=== PATIENT | female | born 1970 | race Caucasian/White ===

== ENCOUNTER 2020-02-27 20:00 | Emergency (ER) | payer OTHER ==
--- OUTSIDE RECORDS SUMMARY | 2020-02-27 20:02 | XMS REPORT ---
:1970 Author Organization eClinicalWorks Care Team Providers Name Role Phone Nereida España Provider Role Unavailable Allergies No Known Allergies Problems Problem Type Condition Code Onset Dates Condition Statu s Problem Gallstones K80.20 Active Problem Hepatitis K75.9 Active Problem Encounter for tobacco use cessation Z71.6 Active counseling Problem Tobacco use Z72.0 Active Problem Reflux K21.9 Active Problem Leukocytosis, unspecified type D72.829 Active Problem Hypercalcemia E83.52 Active Problem Onychomycosis B35.1 Active Problem Pain in right leg M79.604 Active Problem Pain in left leg M79.605 Active Problem Anxiety F41.9 Active Problem Morbid obesity E66.01 Active Problem Paresthesias R20.2 Active Problem Seasonal allergies J30.2 Active Problem Mixed hyperlipidemia E78.2 Active Problem Paresthesia of foot, bilateral R20.2 Active Problem Status post fall Z91.81 Active Problem Acute lower urinary tract infection N39.0 Active Problem Body mass index (BMI) of 40.0-44.9 Z68.41 Active in adult Problem Hyperlipidemia, unspecified E78.5 Active hyperlipidemia type Problem Diabetes E11.9 Active Problem Sinus problem J34.9 Active Problem History of hepatitis B virus Z86.19 Active infection Problem Depression screening Z13.31 Active Problem Gastroesophageal reflux disease K21.9 Active without esophagitis Problem Uncontrolled type 2 diabetes E11.65 Active mellitus with hyperglycemia Medications No Known Medications Results No Known Results Summary Purpose eClinicalWorks Submission
--- OUTSIDE RECORDS SUMMARY | 2020-02-27 20:02 | XMS REPORT ---
:1970 Author Organization eClinicalWorks Care Team Providers Name Role Phone Nereida España Provider Role Unavailable Allergies, Adverse Reactions, Alerts Substance Reaction Event Type tetracycline nausea and vomiting Drug Allergy Nicotine rash Drug Allergy Indocin nausea and vomiting Drug Allergy Problems Problem Type Condition Code Onset Dates Condition Statu s Assessment Status post fall Z91.81 Active Assessment Mixed hyperlipidemia E78.2 Active Assessment Pain in left leg M79.605 Active Assessment Pain in right leg M79.604 Active Assessment Paresthesias R20.2 Active Assessment Acute lower urinary tract infection N39.0 Active Assessment Uncontrolled type 2 diabetes E11.65 Active mellitus with hyperglycemia Problem Gallstones K80.20 Active Problem Hepatitis K75.9 [...] Acute lower urinary tract infection N39.0 Active Assessment Leukocytosis, unspecified type D72.829 Active Problem Body mass index (BMI) of 40.0-44.9 Z68.41 Active in adult Assessment Hypercalcemia E83.52 Active Problem Hyperlipidemia, unspecified E78.5 Active hyperlipidemia type Assessment Body mass index (BMI) of 40.0-44.9 Z68.41 Active in adult Problem Diabetes E11.9 Active Assessment Morbid obesity E66.01 Active Problem Sinus problem J34.9 Active Assessment Anxiety F41.9 Active Problem History of hepatitis B virus Z86.19 Active infection Assessment Onychomycosis B35.1 Active Problem Depression screening Z13.31 Active Problem Gastroesophageal reflux disease K21.9 Active without esophagitis Problem Uncontrolled type 2 diabetes E11.65 Active mellitus with hyperglycemia Medications Medication Code Code Instructions Start End Status Dosage System Date Date Cipro [facility] 05212558927 500 MG Orally December Active 1 tabl et every 12 hrs , 2019 Pen Hoosick [facility] 21674872556 32G X 6 MM Active as subcutaneous as directed directed for use with Victoza Pen Lamisil [facility] 77936122172 250 MG Orally Mar 16, Active 1 tabl et Once a day 2019 Fluoxetine HCl ND 10578149383 10 MG Orally Active 1 capsule Once a day Janumet XR [facility] 27568467219 50mg/1,000mg December Inactive 1 t ablet Orally Twice a 2019 Victoza [facility] 46768465739 18 MG/3ML September Active as Subcutaneous 1.8 15, directe d mg once daily 2020 Janumet XR [facility] 87410580171 100-1000 MG Active take 1 Orally twice a tablet by day mouth twice daily with meals for 90 days Fluoxetine NDC 0 10 MG Orally Active 1 capsul e Once a day Gabapentin ND 41821286109 100 MG Orally Jul 05, Active 1-3 Twice daily 2019 capsules as needed for pain FreeStyle Noah [facility] 57506156199 - subcutaneous Activ e as 14 Day Shade Test BS once direc nichelle daily and prn FreeStyle Noah NDC 0 - subcutaneous August Active a s Shade Test BS once 19, directed daily and prn 2019 FreeStyle Noah [facility] 66543450764 - May 27, Active USE 14 Day Sensor 2019 DIRECTED ONCE DAILY AND NEEDED 84 DAYS Lisinopril [facility] 23624476343 5 MG Orally Once Active 1 tablet a day Jardiance ND 82660320861 10 MG Orally DecemberApr 15, Active 1 tab let Once a day for 2019 diabetes 2019 atorvastatin ND 96634928493 20mg Orally Once September Active 1 tablet daily 15, by mouth 2020 at bedtime Gemfibrozil ND 84774537975 600 MG Orally Active 1 tablet Twice a day for 30 minut es high before triglycerides morning and evening meals Results Name Result Date Reference Range Unit Abnormali ty Flag URINALYSIS AUTO W/O SCOPE ----Bilirubin negative 20191217 ----Urobilinogen (mg/dL) 0.2 20191217 ----Ketones negative 20191217 ----Glucose (mg/dL) 3+ 20191217 ----Protein (mg/dL) 1+ 20191217 ----Specific [place] 1.010 20191217 ----Blood (Non-Hemolyzed) 1+ 20191217 ----pH 6.0 20191217 ----Leukocytes negative 20191217 ----Nitrite negative 20191217 HEMOGLOBIN A1C ----A1C 8.5% 20191217 Summary Purpose eClinicalWorks Submission
--- OUTSIDE RECORDS SUMMARY | 2020-02-27 20:03 | XMS REPORT ---
[...] Medications Medication Code Code Instructions Start End Date Status Dosage System Date Ckuvia ND 10846412546 100 MG Orally December 23, Active 1 tab let once a day 2019 Metformin HCl NDC 47349539663 1000 MG Orally December 23, Active 1 tablet twice a day 2019 with a meal Results No Known Results Summary Purpose eClinicalWorks Submission
--- OUTSIDE RECORDS SUMMARY | 2020-02-27 20:03 | XMS REPORT | Continuity of Care Document ---
:1970 Author Organization [facility] t Address [address] [place] [address] Care Team Providers Name Role Phone Unavailable Unavailable Unavailable Problems Condition Condition Condition Status Onset Resolution Last Treating Co mments Source Name Details Category Date Date Treatment Clinician Date Gastroesop Gastroesop Problem Active [facility]age[facility]al [facility] reflux reflux [facility] disease disease l without without Outpati esophagiti esophagiti en t s s Clinics Sinus Sinus Problem Active [facility] problem problem [facility] Morbid Morbid Problem Active [facility] obesity obesity [facility] Uncontroll Uncontroll Problem Active [facility] ed type 2 ed type 2 [facility] - diabetes diabetes [facility] a mellitus mellitus l with with Outpati hyperglyce hyperglyce en t sunday sunday Clinics History of History of Problem Active [facility] hepatitis hepatitis [facility] - B virus B virus [facility] infection infection l Outpati ent Clinics Body mass Body mass Problem Active [facility] index index [facility] - (BMI) of (BMI) of Memori a 40.0-44.9 40.0-44.9 l in adult in adult Outpat i ent Clinics Hyperlipid Hyperlipid Problem Active [facility] emia, emia, [facility] - unspecifie unspecifie Me moria d d l hyperlipid hyperlipid Ou tpati emia type emia type ent Clinics Anxiety Anxiety Problem Active [facility] Diabetes Diabetes Problem [facility] Hepatitis Hepatitis Problem Active [facility] Gallstones Gallstones Problem Active [facility] Seasonal Seasonal Problem Active [facility] allergies allergies [facility] Leukocytos Leukocytos Problem Active [facility] is, is, [facility] - unspecifie unspecifie Me moria d type d type l [facility] Onychomyco Onychomyco Problem Active [facility] sis sis [facility] Tobacco Tobacco Problem Active [facility] use use [facility] Depression Depression Problem Active [facility] screening screening [facility] - [facility] Encounter Encounter Problem Active [facility] for for [facility] - tobacco tobacco [facility] use use l cessation cessation Outp ati counseling counseling en t Clinics Hypercalce Hypercalce Problem Active [facility] sunday sunday [facility] Paresthesi Paresthesi Problem Active [facility] a of foot, a of foot, [place] - bilateral bilateral [place] christal l [facility] Mixed Mixed Problem Active [facility] hyperlipid hyperlipid [facility] - emia emia [facility] Status Status Problem Active [facility] post fall post fall [facility] Pain in Pain in Problem Active [facility] left leg left leg [facility] Pain in Pain in Problem Active [facility] right leg right leg [facility] Acute Acute Problem Active [facility] lower lower [facility] - urinary urinary Memoria tract tract l infection infection Outp at ent Clinics Allergies, Adverse Reactions, Alerts Allergy Allergy Status Severity Reaction(s) Onset Inactive Treating Comm ents Source Name Type Date Date Clinician tetracyc Adverse Active nausea and [facility] line Reaction vomiting [facility] Nicotine Adverse Active rash [facility] Reaction [facility] Indocin Adverse Active nausea and [facility] Reaction vomiting [facility] Medications Ordered Filled Start Stop Current Ordering Indication Dosage Frequency Signature Comments Components Source Medication Medication Date Date Medication? Clinician (SIG) Name Name Cecy Stoverkimmyia Yes Nereida [address] 7-21 Millender [facility] - 00:[facility]: [facility] Metformin Metformin Yes Nereida [address] [facility] HCl HCl 7-21 Millender with a [facility] - 00:00: meal [facility] Procedures This patient has no known procedures. Encounters Start End Encounter Admission Attending Care Care Encounter Source Date/Time Date/Time Type Type Clinicians Facility Department ID 2019-12-24 2019-12-24 [facility] [id number] [facility] 14:38:00 14:38:00 [facility] Medicine Outpati ent Clinics 2019-12-22 2019-12-22 [facility] [id number] [address] 17:05:00 17:05:00 [facility] Medicine Outpati ent Clinics 2019-12-17 2019-12-17 [facility] [id number] [address] 09:00:00 09:00:[address] [facility] Medicine l Medicine Outpati ent Clinics 2019-11-19 2019-11-19 [facility] [id number] [facility] 16:00:00 16:00:00 [facility] Medicine Outpati ent Clinics 2019-10-04 2019-10-04 [facility] [id number] [facility] 16[facility]08:00 16:08:[address] [facility] Medicine Medicine Outpati ent Clinics 2019-09-30 2019-09-30 [facility] [id number] [facility] 14:31:00 14:31:00 [facility] Medicine Outpati ent Clinics 2019-08-13 2019-08-13 [facility] [id number] [facility] 14:30:00 14:30:[address] [facility] Medicine Medicine Outpati ent Clinics 2019-07-08 2019-07-08 [facility] [id number] 22:06:00 22:06:00 [facility] Medicine Outpati ent Clinics 2019-07-05 2019-07-05 [facility] [id number] [facility] 10:24:00 10:24:00 [facility] Medicine Outpati ent Clinics 2019-07-03 2019-07-03 [facility] [id number] 11:45:00 11:45:00 t [facility] Medicine Outpati ent Clinics 2019-03-19 2019-03-19 [facility] [id number] [address] 13:20:00 13:20:00 [facility] Medicine Outpati ent Clinics 2019-03-18 2019-03-18 [facility] [id number] [address] 10:35:00 10:35:00 [facility] Medicine Outpati ent Clinics 2019-02-14 2019-02-14 [facility] [id number] 16:39:00 16:39:00 t [facility] Medicine Outpati ent Clinics 2018-12-13 2018-12-13 [facility] [id number] 16:15:00 16:15:00 [facility] Medicine Outpati ent Clinics 2018-11-20 2018-11-20 [facility] [id number] [address] 14:20:00 14:20:00 t [facility] Medicine Outpati ent Clinics 2018-10-05 2018-10-05 [facility] [id number] [address] 15:44:00 15:44:00 t [facility] Medicine Outpati ent Clinics 2018-08-22 2018-08-22 [facility] [id number] [address] 15:39:00 15:39:00 t [facility] Medicine Outpati ent Clinics 2018-08-22 2018-08-22 [facility] [id number] 15:12:00 15:12:00 [facility] Medicine Outpati ent Clinics 2018-08-21 2018-08-21 [facility] [id number] 09:15:00 09:15:00 [facility] Medicine Outpati ent Clinics Results This patient has no known results.
[2020-02-27] MEDS ORDERED: HYDROCODONE/APAP 10/325 TAB ONE (22:06)
--- NOTE | 2020-02-27 23:15 | ER ---
Nurse's Notes [facility] Name: Francia Smith Age: 50 yrs Sex: Female : 1970 Arrival Date: 02/27/2020 Time: 20:07 Bed 15 Private MD: Diagnosis: Fall on same level from slipping, tripping and stumbling;Pain in right leg;Mid back pain Presentation: 02/26 20:07 Chief complaint: EMS states: "the pt is reporting a fall today and hurting her legs. jd3 she reported she was on the ground for about 30 min prior to our arrival. she is reporting that she has had FRED leg issues for about 2 months now. she had an appointment today in [place] for an ultrasound to rule out a DVT, but she does not have a result yet. her right leg from her hip down to her foot hurts and her left leg hurts from her knee down through her foot.". Coronavirus screen: At this time, the client does not indicate any symptoms associated with coronavirus-19. Ebola Screen: Patient negative for fever greater than or equal to 101.5 degrees Fahrenheit, and additional compatible Ebola Virus Disease symptoms. Initial Sepsis Screen: Does the patient meet any 2 criteria? No. Patient's initial sepsis screen is negative. Does the patient have a suspected source of infection? No. Patient's initial sepsis screen is negative. Risk Assessment: Do you want to hurt yourself or someone else? Patient reports no desire to harm self or others. Onset of symptoms was February 27, 2020. 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 - Social history:: Smoking status: Patient reports the use of cigarette tobacco products, smokes one-half pack cigarettes per day. Screenin:15 Abuse screen: Denies threats or abuse. Denies injuries from another. Nutritional ca1 screening: No deficits noted. Tuberculosis screening: No symptoms or risk factors identified. Fall Risk Fall in past 12 months (25 points). Assessment: 20:15 General: Appears in no apparent distress. comfortable, Behavior is calm, cooperative, ca1 appropriate for age. Pain: Complains of pain in right leg Pain currently is 8 out of 10 on a pain scale. Neuro: Level of Consciousness is awake, alert, obeys commands, Oriented to person, place, time, situation, Appropriate for age. Derm: Skin is intact, is healthy with good turgor, Skin is pink, warm \\T\\ dry. Musculoskeletal: Circulation, motion, and sensation intact. Capillary refill < 3 seconds, Range of motion: intact in all extremities. 21:20 Reassessment: Patient appears in no apparent distress at this time. Patient and/or ca1 family updated on plan of care and expected duration. Pain level reassessed. Patient is alert, oriented x 3, equal unlabored respirations, skin warm/dry/pink. Vital Signs: 20:13 BP 120 / 61; Pulse 76; Resp 17 S; Temp 98.1(O); Pulse Ox 97% on R/A; Weight 109.77 kg jd3 (R); Height 5 ft. 6 in. (167.64 cm) (R); Pain 8/10; 21:20 BP 121 / 71; Pulse 78; Resp 16 S; Pulse Ox 97% on R/A; ca1 20:13 Body Mass Index 39.06 (109.77 kg, 167.64 cm) jd3 ED Course: 20:07 Patient arrived in ED. jd3 20:12 Triage completed. jd3 20:14 Arm band placed on. jd3 20:15 Patient has correct armband on for positive identification. Bed in low position. Call ca1 light in reach. Side rails up X2. Pulse ox on. NIBP on. Warm blanket given. Pillow given. 20:20 Pam Finley RN is Primary Nurse. ca1 20:32 Patience Masters FNP-C is PHCP. kb 20:32 José Driver MD is Attending Physician. kb 22:21 Report given to MARIBELL Flanagan. ca1 22:35 Hip Right 2 View XRAY In Process Unspecified. EDMS 22:35 Femur Right XRAY In Process Unspecified. EDMS 22:35 Tib Fib Right XRAY In Process Unspecified. EDMS 22:37 CT Thoracic Spine Wo Cont In Process Unspecified. EDMS 23:28 No provider procedures requiring assistance completed. Patient did not have IV access mg2 during this emergency room visit. 02/27 07:08 US Extremity Venous Unilateral Ltd In Process Unspecified. EDMS Administered Medications: 02/26 21:57 Drug: [place] 10 mg-325 mg 1 tabs {Note: rass 0.} Route: PO; ca1 23:04 Follow up: Response: No adverse reaction mg2 Outcome: 23:14 Discharge ordered by . kb 23:29 Discharged to home via wheelchair. mg2 23:29 Condition: stable 23:29 Discharge instructions given to patient, Instructed on discharge instructions, follow up and referral plans. medication usage, Demonstrated understanding of instructions, follow-up care, medications, Prescriptions given X 1. 23:36 Patient left the ED. mg2 Signatures: Dispatcher [employer] EDMS Patience Masters, EMPLOYMENT SPECIALIST/PROGRAM MANAGER-C EMPLOYMENT SPECIALIST/PROGRAM MANAGER-Trevor Darling RN RN jd3 Armando Santizo RN RN mg2 Pam Finley RN RN ca1
--- NOTE | 2020-02-27 23:15 | EDPHYS ---
Physician Documentation [facility] Name: Francia Smith Age: 50 yrs Sex: Female : 1970 Arrival Date: 02/27/2020 Time: 20:07 Bed 15 Private MD: BRITTANY Physician José Driver HPI: 02/26 22:01 This 50 yrs old Female presents to ER via EMS with complaints of leg and hip kb pain. 22:01 Details of fall: The patient fell from an upright position, while walking. Onset: The kb symptoms/episode began/occurred today. Associated injuries: The patient sustained upper back injury, pain, pain with movement, right leg, painful injury, swelling. Severity of symptoms: At their worst the symptoms were moderate, in the emergency department the symptoms are unchanged. The patient has not experienced similar symptoms in the past. The patient has been recently seen by a physician:. Pt reports she has neuropathy and her legs go out sometimes. States that happened today and caused her to fall. c/o right hip, knee and lower leg pain, pain to thoracic spine. States they are trying to figure out what is going on with her legs so she had US today, but didn't get results. . 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 - Social history:: Smoking status: Patient reports the use of cigarette tobacco products, smokes one-half pack cigarettes per day. ROS: 22:00 Constitutional: Negative for fever, chills, and weight loss, Cardiovascular: Negative kb for chest pain, palpitations, and edema, Respiratory: Negative for shortness of breath, cough, wheezing, and pleuritic chest pain, Abdomen/GI: Negative for abdominal pain, nausea, vomiting, diarrhea, and constipation, : Negative for injury, bleeding, discharge, and swelling, Skin: Negative for injury, rash, and discoloration, Neuro: Negative for headache, weakness, numbness, tingling, and seizure. 22:00 Back: Positive for pain at rest, pain with movement. 22:00 MS/extremity: Positive for pain, swelling, tenderness. Exam: 21:59 Constitutional: This is a well developed, well nourished patient who is awake, alert, kb and in no acute distress. Head/Face: Normocephalic, atraumatic. Chest/axilla: Normal chest wall appearance and motion. Nontender with no deformity. No lesions are appreciated. Cardiovascular: Regular rate and rhythm with a normal S1 and S2. No gallops, murmurs, or rubs. Normal PMI, no JVD. No pulse deficits. Respiratory: Lungs have equal breath sounds bilaterally, clear to auscultation and percussion. No rales, rhonchi or wheezes noted. No increased work of breathing, no retractions or nasal flaring. Abdomen/GI: Soft, non-tender, with normal bowel sounds. No distension or tympany. No guarding or rebound. No evidence of tenderness throughout. Skin: Warm, dry with normal turgor. Normal color with no rashes, no lesions, and no evidence of cellulitis. Neuro: Awake and alert, GCS 15, oriented to person, place, time, and situation. Cranial nerves II-XII grossly intact. Motor strength 5/5 in all extremities. Sensory grossly intact. Cerebellar exam normal. Normal gait. 21:59 Back: pain, that is moderate, of the thoracic area, ROM is painful. 21:59 Musculoskeletal/extremity: Extremities: grossly normal except: noted in the right leg: pain, swelling, tenderness, ROM: limited active range of motion due to pain, in the right leg, Circulation is intact in all extremities. Sensation intact. Weight bearing: can bear weight with assistance only, uses cane. Vital Signs: 20:13 BP 120 / 61; Pulse 76; Resp 17 S; Temp 98.1(O); Pulse Ox 97% on R/A; Weight 109.77 kg jd3 (R); Height 5 ft. 6 in. (167.64 cm) (R); Pain 8/10; 21:20 BP 121 / 71; Pulse 78; Resp 16 S; Pulse Ox 97% on R/A; ca1 20:13 Body Mass Index 39.06 (109.77 kg, 167.64 cm) jd3 MDM: 20:33 Patient medically screened. kb 21:59 Data reviewed: vital signs, nurses notes. Data interpreted: Pulse oximetry: on room air kb is 97 %. Interpretation: normal. 23:11 Counseling: I had a detailed discussion with the patient and/or guardian regarding: the kb historical points, exam findings, and any diagnostic results supporting the discharge/admit diagnosis, radiology results, the need for outpatient follow up, a family practitioner, to return to the emergency department if symptoms worsen or persist or if there are any questions or concerns that arise at home. 02/26 21:41 Order name: Hip Right 2 View XRAY kb 02/26 21:41 Order name: US Extremity Venous Unilateral Ltd kb 02/26 21:41 Order name: Femur Right XRAY kb 02/26 21:41 Order name: Tib Fib Right XRAY kb 02/26 21:42 Order name: CT Thoracic Spine Wo Cont kb Administered Medications: 21:57 Drug: [place] 10 mg-325 mg 1 tabs {Note: rass 0.} Route: PO; ca1 23:04 Follow up: Response: No adverse reaction mg2 Disposition: 02/27 11:13 Co-signature as Attending Physician, José Driver MD I agree with the assessment and [facility] plan of care. Disposition: 02/27/20 23:14 Discharged to Home. Impression: Fall on same level from slipping, tripping and stumbling, Pain in right leg, Mid back pain. - Condition is Stable. - Discharge Instructions: Musculoskeletal Pain, Fall Prevention in the Home, [id number]. - Prescriptions for Cyclobenzaprine 10 mg Oral Tablet - take 1 tablet by ORAL route every 8 hours As needed; 21 tablet. - Medication Reconciliation Form, Thank You Letter, Antibiotic Education, Prescription Opioid Use form. - Follow up: Emergency Department; When: As needed; Reason: Worsening of condition. Follow up: Private Physician; When: 2 - 3 days; Reason: Recheck today's complaints, Continuance of care, Re-evaluation by your physician. Signatures: Dispatcher [employer] Patience Barrientos, PEDIATRICIAN-C PEDIATRICIAN-José Blanchard MD MD cha Davies, Jonathon, RN RN jArmando Ryan RN RN mg2 Pam Finley RN RN ca1 Corrections: (The following items were deleted from the chart) 02/26 21:50 21:41 Thorax Wo Con+CT.RAD.BRZ ordered. EDMS EDMS 23:36 23:14 02/27/2020 23:14 Discharged to Home. Impression: Fall on same level from mg2 slipping, tripping and stumbling; Pain in right leg; Mid back pain. Condition is Stable. Forms are Medication Reconciliation Form, Thank You Letter, Antibiotic Education, Prescription Opioid Use. Follow up: Emergency Department; When: As needed; Reason: Worsening of condition. Follow up: Private Physician; When: 2 - 3 days; Reason: Recheck today's complaints, Continuance of care, Re-evaluation by your physician. kb
[2020-02-27 23:46] VITALS: TEMP 98.1; O2SAT 97
[2020-02-27 23:51] VITALS: BP 121/71
--- NOTE | 2020-02-28 07:20 | RAD REPORT ---
EXAM DESCRIPTION: RAD - Femur Right - 02/27/2020 10:34 pm CLINICAL HISTORY: Leg pain FINDINGS: No fracture is seen.
--- NOTE | 2020-02-28 07:20 | RAD REPORT ---
EXAM DESCRIPTION: RAD - Hip Right 2 View - 02/27/2020 10:34 pm CLINICAL HISTORY: Right hip pain FINDINGS: No fracture or dislocation is seen.
--- NOTE | 2020-02-28 07:22 | RAD REPORT ---
[facility] DESCRIPTION[facility]/28/2020 7:08 am CLINICAL HISTORY: Right leg pain and swelling. COMPARISON: None. FINDINGS: Right common femoral, superficial femoral, popliteal and right posterior tibial veins are compressible and demonstrate augmentation. Doppler demonstrates good flow. IMPRESSION: No evidence of deep venous thrombosis involving the right lower extremity.
--- NOTE | 2020-02-28 07:22 | RAD REPORT ---
EXAM DESCRIPTION: RAD - Tib Fib Right - 02/27/2020 10:35 pm CLINICAL HISTORY: Right leg pain FINDINGS: Diffuse edema is present within the subcutaneous tissues. Cortical irregularity involves the posterior malleolus of the tibia seen on the lateral view. No dani esponding abnormality is seen on the frontal view. This probably is not significant. However if the p atient has pain in this region then dedicated three-view plain film series of ankle would be recommen ded Otherwise no fracture or dislocation seen
--- NOTE | 2020-02-28 17:08 | RAD REPORT ---
EXAM DESCRIPTION: CTThoracic Spine W/o Cont02/28/2020 6:43 am CLINICAL HISTORY: Pain, fall TECHNIQUE: Contiguous axial CT images obtained through the thoracic spine without IV contrast. Coron al and sagittal reformatted images also provided. This exam was performed according to our departmental dose-optimization program, which includes autom ated exposure control, adjustment of the mA and/or kV according to patient size and/or use of iterati ve reconstruction technique. COMPARISON: None available for comparison FINDINGS: Vertebra: No acute fracture or subluxation. Disc spaces: Multilevel degenerative changes manifested by mild disc degeneration and small to modera te anterior and lateral disc osteophytes. No canal stenosis. Soft tissues: Unremarkable Lungs: Clear IMPRESSION: No acute injury. Electronically signed by: Amber Mendoza MD 02/27/2020 10:57 PM CDT Due to temporary technical issues with the PACS/Fluency reporting system, reports are being signed by the in house radiologist without review as a courtesy to ensure prompt reporting. The interpreting r adiologist is fully responsible for the content of the report.
== END 2020-02-27 23:36 | disposition home or self-care (01) ==
LOC: ER 20:00
DX: M54.9 Dorsalgia, unspecified (principal); W01.0XXA Fall on same level from slipping, tripping and stumbling without subsequent striking against object, initial encounter; Y93.01 Activity, walking, marching and hiking; Y92.9 Unspecified place or not applicable; G62.9 Polyneuropathy, unspecified; F17.210 Nicotine dependence, cigarettes, uncomplicated; Z88.1 Allergy status to other antibiotic agents; Z88.8 Allergy status to other drugs, medicaments and biological substances
CPT/HCPCS: 72128; 93971; 99284

== ENCOUNTER 2020-03-24 19:23 | Inpatient (IN) | payer OTHER ==
--- NOTE | 2020-03-24 14:55 | R.PREADM ---
PRE-ADMISSION SCREENING FORM SCREENING DATE AND TIME 03/24/2020 10:15 (CDT) ANTICIPATED REHAB ADMISSION DATE 03/26/[address] [facility] REFERRAL DATE AND TIME 03/24/2020 10:15 (CDT) ACUTE ADMIT DATE 03/25/2020 Previous Rehabilitation(s): No. 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 Erikc Bosch M.D. MR# [id number] NAME NICOLAS LAGUNA ADDRESS [address] [place] [address] PHONE [place] [id number] DATE OF 1970 AGE 50 SSN# [id number] GENDER female MARITAL STATUS RACE unknown race ADMIT FROM 02 - [facility] PRE-HOSPITAL LIVING SETTING 01 - Home (private home/apt. board/care, assisted living, fdc, transitional living) HOME TYPE AND DETAILS Type of home: apartment # of levels in the residence: 1 # of steps within the residence: 0 # of steps to enter the residence: 0 PRE-HOSPITAL LIVING WITH Alone FAMILY SUPPORT No PRIMARY FAMILY CONTACT NAME KARLI MINOR PRIMARY FAMILY CONTACT PHONE PRIMARY FAMILY CONTACT RELATIONSHIP MOTHER PHONE PRIMARY FAMILY CONTACT ON ADM.? no IS PRIMARY FAMILY CONTACT AUTH. REP.? no 1ST EMERGENCY CONTACT KARLI MINOR 1ST CONTACT PHONE 1ST CONTACT RELATIONSHIP MOTHER PHONE 1ST CONTACT ON ADM. no IS 1ST CONTACT AUTH. REP.? no PHONE 2ND CONTACT ON ADM.? no PATIENT EMPLOYMENT STATUS Employed [employer] PAYOR INFORMATION: 1ST PAYOR NAME [employer] 1ST PAYOR PHONE [phone] 1ST PAYOR INJURY/ILLNESS DUE TO ACCIDENT? No ANOTHER [employer] RESPONSIBLE? No PRIMARY REHAB/ACUTE DIAGNOSIS: BEGNIGN NEOPLASM OF THE SPINAL MENINGES ONSET DATE 03/17/2020 REHAB IMPAIRMENT CATEGORY (TYSON): 05 Nontraumatic spinal cord injury (NTSCI) MEETS 60% rule AFFECTED EXTREMITIES: BLE PRIMARY DIAGNOSIS-RELATED SURGERIES: T9 LAMINOPLASTY FOR RESECTION OF SPINAL CORD TUMOR COMORBID REHAB/ACUTE DIAGNOSES: - Tier 3 Type 2 diabetes mellitus with diabetic polyneuropathy (E11.42) SUMMARY OF ACUTE HOSPITALIZATION: Pt. is a 50 yo Right-handed female of unknown race. On 03/17/2020 she [address] to [facility] with diagnosis BEGNIGN NEOPLASM OF THE SPINAL MENI NGES. Her impairment category is Spinal Cord Dysfunction 04 - Paraplegia, Unspecified (04.110). Pre-morbidly, Pt. was independent/mod-I in Locomotion, Balance, Safety Awareness, Transfers Control, Self-Care, and Communication; and she had good Endurance and Social Cognition. Currently, she has deficits of Locomotion, Balance, Transfers Control, Sphincter Control, and Enduran ce. Pt. is now referred to [facility] for acute in-patient rehabilitation in order to maximize patient's functional independence in activities of daily living, strength, ROM, and mobi lity. Patient has realistic goal of being discharged at assistance level 7-Ind to reside at Home with Pt s elf. PAST MEDICAL HISTORY DIABETES MELLITUS PAST SURGICAL HISTORY: CARPAL TUNNEL RELEASE SECTION CHOLECYSTECTOMY HAND SURGERY LAMINOPLASTY, CERVICAL RESECTION OF INTRADURAL TUMOR LYMPHADENECTOMY PROCEDURE W INTRAOPERATIVE NEUROMONTORING PRO W OPERATING MICROSCOPE PROCEDURE W C-ARM RHINOPLASTY ULTRASOUND GUIDANCE MEDICATION ALLERGIES: INDOCIN TETRACYCLINES ENVIRONMENTAL ALLERGIES: - Substance Allergies None Known - Other Allergies None Known CODE STATUS: Full code WEIGHT/HEIGHT/BMI: WEIGHT 240 lbs HEIGHT 5' 6" BMI 38.7 DIET: - Diet Type Regular - Diet - Solid Texture Regular - Diet - Liquid Texture Regular - Tube Feed N/A REVIEW OF SYSTEMS: - Gen Alert and awake Lying in bed No apparent distress Oriented to: person, time, and place - Vital Signs Temperature: 97.5 F SBP/DBP: 119/68 Pulse: 61 Resp: 18 Vital signs stable, afebrile - CVS RRR VITAL SIGNS Temperature: 97.5 F SBP/DBP: 119/68 Pulse: 61 Resp: 18 Vital signs stable, afebrile MEDICATIONS/TREATMENT: Other- See attached MAR (Medication Administration Record). CURRENT SPHINCTER CONTROL: Pre-hospital bladder status: unspecified # of bladder accidents in the last 7 days prior to screenin Pre-hospital bowel status: unspecified # of bowel accidents in the last 7 days prior to screenin Last Bowel Movement Date: 03/24/2020 CURRENT LOCOMOTION STATUS: distance walked 15 feet with rolling walker DETAILED CURRENT FUNCTIONAL STATUS: - Bladder accident frequency: Ind - No accidents in the past 7 days - Bowel accident frequency: Ind - No accidents in the past 7 days - Walking score based on distance walked: 0(N/A) - Wheelchair score based on distance traveled: 0(N/A) QI SCORES: - Self-Care A. Eating 03-Partial/moderate assistance B. Oral hygiene 03-Partial/moderate assistance C. Toileting hygiene 03-Partial/moderate assistance E. Shower/bathe self 03-Partial/moderate assistance F. Upper body dressing 03-Partial/moderate assistance G. Lower body dressing 03-Partial/moderate assistance H. Putting on/taking off footwear 88-Not attempted due to medical condition or safety concerns - Mobility A. Roll left and right 03-Partial/moderate assistance B. Sit to lying 03-Partial/moderate assistance C. Lying to sitting on side of bed 03-Partial/moderate assistance D. Sit to stand 03-Partial/moderate assistance E. Chair/gch-tx-vpshd transfer 03-Partial/moderate assistance F. Toilet transfer 03-Partial/moderate assistance G. Car transfer 88-Not attempted due to medical condition or safety concerns I. Walk 10 feet 88-Not attempted due to medical condition or safety concerns J. Walk 50 feet with two turns 88-Not attempted due to medical condition or safety concerns K. Walk 150 feet 88-Not attempted due to medical condition or safety concerns L. Walking 10 feet on uneven surfaces 88-Not attempted due to medical condition or safety concerns M. 1 step (curb) 88-Not attempted due to medical condition or safety concerns N. 4 steps 88-Not attempted due to medical condition or safety concerns O. 12 steps 88-Not attempted due to medical condition or safety concerns P. Picking up object 88-Not attempted due to medical condition or safety concerns R. Wheel 50 feet with two turns 88-Not attempted due to medical condition or safety concerns S. Wheel 150 feet 88-Not attempted due to medical condition or safety concerns - Bladder and Bowel Bladder continence Bowel continence - Endurance Fair - Balance Fair - Safety Awareness Fair CURRENT FUNC. DEFICITS: Self-Care, Mobility, Endurance, Balance, and Safety Awareness THERAPY NOTES FROM ACUTE CARE: Attached. SPECIAL NEEDS: - Safety Concerns Skin breakdown precautions needed due to skin breakdown risk PATIENT NEEDS ACTIVE AND ONGOING THERAPEUTIC INTERVENTION OF MULTIPLE THERAPY DISCIPLINES, INCLUDING: - Orthotics/Prosthetics Orthotic Evaluation. Splinting/Casting. - Dietary and Nutrition Adequate Nutrition. Nutritional Education. Nutritional Supplements. PATIENT NEEDS CLOSE MEDICAL SUPERVISION BY A REHABILITATION PHYSICIAN FOR: Coordination of Treatment Team Diabetes Management Medical and Co-Morbidity Management PATIENT REQUIRES 24X7 REHAB NURSING FOR MEDICAL AND FUNCTIONAL MGT. OF THE FOLLOWING DEFICITS: Disease Management Medication Management Patient/Family Education Providing Safe Environment PATIENT REQUIRES INTENSIVE, COORDINATED INTERDISCIPLINARY APPROACH TO REHAB: Arranging Home Equipment/Services Discharge Planning Family Intervention/Training Practice Office Associate/Case Management PATIENT REHAB POTENTIAL: Eva LAGUNA is able and expected to receive 3 hours of individualized therapy daily on at least 5 of jimi ry 7 days Eva LAGUNA's prognosis for significant practical improvement within a reasonable period of time appears Good Expected level of measurable improvement will be of a practical value to Eva LAGUNA's functional capaci ty or adaptations to impairments Has a viable Discharge Plan Medically appropriate; condition is sufficiently stable to participate in intensive rehab program DISCHARGE PLAN: - Estimated Length of Stay (days) 16. - Consensus on plan Discharge plan has been discussed with primary caregiver. Patient/Family is in agreement with the micky n. Primary caregiver is in agreement with the plan. - Patient/Family Goals Return home independently. - Planned Living Setting Upon Discharge Home, to live alone. Transitional Living. Primary caregiver: Pt self. RECOMMENDED CARE LEVEL: IRF RECOMMENDATION DETAILS: Recommended Admission to Comprehensive Rehabilitation Program to Increase Functional [place] SCREENER'S COMPLETENESS CONFIRMATION: - Screening Confirmation The patient data collection on this preadmission screening form is finished PHYSICIANS REVIEW AND ADMISSION DETERMINATION Admit - Based on my review of the Pre-Admission Screening results, in my medical judgment and experie nce, I concur with the findings and recommend admission to [facility], as this patient requires an IRF level of care. SIGNATURE PANEL: Fur Dressing Supervisor - [electronically] signed by Linda Dean on 03/24/2020 at 14:39 (CDT) Clinical Liaison - [electronically] signed by Mariola Paige RN on 03/24/2020 at 14:44 (CDT) Physician Reviewer - [electronically] signed by Dr. Erick Bosch M.D. on 03/24/2020 at 14:54 (CDT )
--- OUTSIDE RECORDS SUMMARY | 2020-03-24 19:27 | XMS REPORT | Clinical Summary ---
:1970 Author Organization [facility] Address [address] [place] [address] Care Team Providers Name Role Phone Antonette Weber Primary Care Provider Allergies Active Allergy Reactions Severity Noted Date Comments Indomethacin Sodium 03/17/2020 Tetracyclines 03/17/2020 Medications Medication Sig Dispensed Refills Start End Date Status Date fenofibrate Take 145 mg by 0 Act lydia (TRICOR) 145 MG mouth daily. tablet empagliflozin Take 10 mg by 0 Ac tive (Jardiance) 10 mg mouth daily. tablet liraglutide Inject 1.8 mg 0 Acti ve (Victoza 2-Jesu) subcutaneously 0.6 mg/0.1 mL (18 daily . mg/3 mL) PnIj atorvastatin Take 20 mg by 0 Act lydia (LIPITOR) 20 MG mouth daily. tablet terbinafine HCL Take 250 mg by 0 Active (LamiSIL) 250 mg mouth daily. tablet metFORMIN Take 1,000 mg by 0 Act lydia (GLUCOPHAGE) 1000 mouth 2 (two) MG tablet times daily with breakfast and dinner. cholecalciferol, Take 5,000 Units 0 Active vitamin D3, by mouth daily. (VITAMIN D3) 125 mcg (5,000 unit) capsule FLUoxetine Take 10 mg by 0 Activ e (PROzac) 10 MG mouth daily. tablet DULoxetine Take 10 mg by 0 03/18/20 Disco ntinued (Cymbalta) 20 MG mouth daily. 20 (Error) capsule lisinopriL Take 5 mg by mouth 0 03/24/20 Discontinued (PRINIVIL,ZESTRIL daily. 20 (S top Taking at ) 5 MG tablet Discha rge) ergocalciferol, Take by mouth. 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 Encounters Date Type Specialty Care Team Description 03/20/2020 Surgery Simone Schultz LAMINOPLAS TY,SABINE Arroyo MD RESECTION OF INTRADURAL/ INTRAMEDULLARY TUMOR 03/20/2020 Anesthesia Event Ronaldo Khalil MD Dufrene, Lance Joseph, CRNA 03/18/2020 Orders Only General Internal Medicine 03/17/2020 - Hospital Encounter Oncology Karmen Titamy Mass of spinal cord (HCC) (Primary Dx); 03/24/2020 MD Coleen Mixed hyperlipidemia; Jessica Zhang Spinal meningio ma (HCC); MD Lindsey Hyperglycemia; Franchesca Neal Paraparesis (HC C); MD Jamin Post-operative pain; Status post spi nal surgery 03/17/2020 Travel after 03/24/2019 Social History Tobacco Use Types Packs/Day Years Used Date Current Every Day Smoker Smokeless Tobacco: Never Used Alcohol Use Drinks/Week oz/Week Comments Yes Sex Assigned at Date Recorded Not on file COVID-19 Exposure Response Date Recorded In the last month, have you been in contact with No / Unsure 03/17/2020 8:42 PM CDT someone who was confirmed or suspected to have Coronavirus / COVID-19? Last Filed Vital Signs Vital Sign Reading Time Taken Comments Blood Pressure 111/59 03/24/2020 4:14 PM CDT Pulse 84 03/24/2020 4:14 PM CDT Temperature 36.2 C (97.2 F) 03/24/2020 4:14 PM CDT Respiratory Rate 18 03/24/2020 4:14 PM CDT Oxygen Saturation 96% 03/24/2020 4:14 PM CDT Inhaled Oxygen Concentration - - Weight 109 kg (240 lb 4.8 oz) 03/21/2020 5:43 AM CDT Height 167.6 cm (5' 6") 03/18/2020 4:20 AM CDT Body Mass Index 38.79 03/18/2020 4:20 AM CDT Plan of Treatment Health Maintenance Due Date Last Done Comments PNEUMOCOCCAL VACCINE 0-64 YRS (1 of 1 - PPSV23) 01/19/1978 DIABETIC EYE EXAM 01/19/1982 DIABETIC FOOT EXAM 01/19/1982 CERVICAL CANCER SCREENING PAP ONLY (Age 21-65) 01/19/1993 INFLUENZA VACCINE (#1) 2020 HEMOGLOBIN A1C 09/20/2020 03/22/2020 URINE MICROALBUMIN 02/26/2021 02/27/2020 LIPID PANEL 02/26/2023 02/27/2020 Implants Implanted Type Area [employer] Professor Device Shelf Model / Identifier Expiration Serial / Date Lot Plt Str Lp-Neuro 4h 12mm Ti Ns [id number] - [id number] IMPLANTS N/A: Spine SYNTHES:SYNTHES [id number] / Implanted: Qty: 4 on 03/20/2020 by Simone Soriano MD at [facility] [employer] / Screws N/A: Spine SYNTHES:SYNTHES . [id number] / Implanted: Qty: 10 on 03/20/2020 by Simone Caballero MD at [facility] [employer] / Procedures Procedure Name Priority Date/Time Associated Diagnosis Comme nts POCT-GLUCOSE METER Routine 03/24/2020 4:38 Resul ts for this PM CDT procedure are i n the results section. POCT-GLUCOSE METER Routine 03/24/2020 12:16 Resul ts for this PM CDT procedure are i n the results section. POCT-GLUCOSE METER Routine 03/24/2020 7:28 Resul ts for this AM CDT procedure are i n the results section. POCT-GLUCOSE METER Routine 03/24/2020 4:03 Resul ts for this AM CDT procedure are i n the results section. CBC W/PLT COUNT & Routine 03/24/2020 3:59 Result s for this AUTO DIFFERENTIAL AM CDT procedure are in the results section. BASIC METABOLIC PANEL Routine 03/24/2020 3:59 Re sults for this (7) AM CDT procedure are i n the results section. CBC W/PLT COUNT & Routine 03/24/2020 3:59 Result s for this AUTO DIFFERENTIAL AM CDT procedure are in the results section. POCT-GLUCOSE METER Routine 03/24/2020 12:40 Resul ts for this AM CDT procedure are i n the results section. POCT-GLUCOSE METER Routine 03/23/2020 8:52 Resul ts for this PM CDT procedure are i n the results section. POCT-GLUCOSE METER Routine 03/23/2020 5:00 Resul ts for this PM CDT procedure are i n the results section. POCT-GLUCOSE METER Routine 03/23/2020 1:59 Resul ts for this PM CDT procedure are i n the results section. POCT-GLUCOSE METER Routine 03/23/2020 8:01 Resul ts for this AM CDT procedure are i n the results section. CBC W/PLT COUNT & Routine 03/23/2020 4:39 Result s for this AUTO DIFFERENTIAL AM CDT procedure are in the results section. BASIC METABOLIC PANEL Routine 03/23/2020 4:39 Re sults for this (7) AM CDT procedure are i n the results section. CBC W/PLT COUNT & Routine 03/23/2020 4:39 Result s for this AUTO DIFFERENTIAL AM CDT procedure are in the results section. POCT-GLUCOSE METER Routine 03/23/2020 3:21 Resul ts for this AM CDT procedure are i n the results section. POCT-GLUCOSE METER Routine 03/22/2020 9:38 Resul ts for this PM CDT procedure are i n the results section. POCT-GLUCOSE METER Routine 03/22/2020 5:26 Resul ts for this PM CDT procedure are i n the results section. POCT-GLUCOSE METER Routine 03/22/2020 11:35 Resul ts for this AM CDT procedure are i n the results section. POCT-GLUCOSE METER Routine 03/22/2020 7:49 Resul ts for this AM CDT procedure are i n the results section. POCT-GLUCOSE METER Routine 03/22/2020 7:10 Resul ts for this AM CDT procedure are i n the results section. CBC W/PLT COUNT & Routine 03/22/2020 3:35 Result s for this AUTO DIFFERENTIAL AM CDT procedure are in the results section. PHOSPHORUS Routine 03/22/2020 3:35 Results for this AM CDT procedure are i n the results section. MAGNESIUM Routine 03/22/2020 3:35 Results for this AM CDT procedure are i n the results section. BASIC METABOLIC PANEL Routine 03/22/2020 3:35 Re sults for this (7) AM CDT procedure are i n the results section. CBC W/PLT COUNT & Routine 03/22/2020 3:35 Result s for this AUTO DIFFERENTIAL AM CDT procedure are in the results section. HEMOGLOBIN A1C Routine 03/22/2020 3:35 Results f or this AM CDT procedure are i n the results section. POCT-GLUCOSE METER Routine 03/21/2020 8:59 Resul ts for this PM CDT procedure are i n the results section. POCT-GLUCOSE METER Routine 03/21/2020 5:45 Resul ts for this PM CDT procedure are i n the results section. POCT-GLUCOSE METER Routine 03/21/2020 4:11 Resul ts for this PM CDT procedure are i n the results section. POCT-GLUCOSE METER Routine 03/21/2020 2:27 Resul ts for this PM CDT procedure are i n the results section. POCT-GLUCOSE METER Routine 03/21/2020 1:38 Resul ts for this PM CDT procedure are i n the results section. POCT-GLUCOSE METER Routine 03/21/2020 12:28 Resul ts for this PM CDT procedure are i n the results section. POCT-GLUCOSE METER Routine 03/21/2020 11:09 Resul ts for this AM CDT procedure are i n the results section. POCT-GLUCOSE METER Routine 03/21/2020 10:25 Resul ts for this AM CDT procedure are i n the results section. POCT-GLUCOSE METER Routine 03/21/2020 7:39 Resul ts for this AM CDT procedure are i n the results section. POCT-GLUCOSE METER Routine 03/21/2020 6:15 Resul ts for this AM CDT procedure are i n the results section. CBC W/PLT COUNT & Routine 03/21/2020 5:42 Result s for this AUTO DIFFERENTIAL AM CDT procedure are in the results section. CBC W/PLT COUNT & Routine 03/21/2020 5:42 Result s for this AUTO DIFFERENTIAL AM CDT procedure are in the results section. BASIC METABOLIC PANEL Routine 03/21/2020 5:42 Re sults for this (7) AM CDT procedure are i n the results section. POCT-GLUCOSE METER Routine 03/21/2020 5:11 Resul ts for this AM CDT procedure are i n the results section. POCT-GLUCOSE METER Routine 03/21/2020 4:12 Resul ts for this AM CDT procedure are i n the results section. POCT-GLUCOSE METER Routine 03/21/2020 3:17 Resul ts for this AM CDT procedure are i n the results section. POCT-GLUCOSE METER Routine 03/21/2020 2:11 Resul ts for this AM CDT procedure are i n the results section. POCT-GLUCOSE METER Routine 03/21/2020 1:05 Resul ts for this AM CDT procedure are i n the results section. POTASSIUM Routine 03/21/2020 12:16 Results for this AM CDT procedure are i n the results section. POCT-GLUCOSE METER Routine 03/21/2020 12:15 Resul ts for this AM CDT procedure are i n the results section. POCT-GLUCOSE METER Routine 03/20/2020 11:05 Resul ts for this PM CDT procedure are i n the results section. POCT-GLUCOSE METER Routine 03/20/2020 10:17 Resul ts for this PM CDT procedure are i n the results section. POCT-GLUCOSE METER Routine 03/20/2020 9:24 Resul ts for this PM CDT procedure are i n the results section. POCT-GLUCOSE METER Routine 03/20/2020 8:24 Resul ts for this PM CDT procedure are i n the results section. POCT-GLUCOSE METER Routine 03/20/2020 7:08 Resul ts for this PM CDT procedure are i n the results section. POCT-GLUCOSE METER Routine 03/20/2020 6:08 Resul ts for this PM CDT procedure are i n the results section. POTASSIUM STAT 03/20/2020 4:28 Results for this PM CDT procedure are i n the results section. GLUCOSE STAT 03/20/2020 4:28 Results for this PM CDT procedure are i n the results section. HC SOMATOSENSORY Routine 03/20/2020 3:01 Results for this TEST, 4 LIMBS PM CDT procedure are in the results section. FL FLUORO Routine 03/20/2020 2:02 Results for this NON-SPECIFIC UP TO 1 PM CDT procedu re are in HOUR the results section. FL FLUORO Routine 03/20/2020 1:08 Results for this NON-SPECIFIC UP TO 1 PM CDT procedu re are in HOUR the results section. HGB/HCT (H&H) - STAT STAT 03/20/2020 1:00 Res ults for this LAB PM CDT procedure are i n the results section. GLUCOSE-STAT LAB STAT 03/20/2020 1:00 Results for this PM CDT procedure are i n the results section. POTASSIUM-STAT LAB STAT 03/20/2020 1:00 Resul ts for this PM CDT procedure are i n the results section. SODIUM NA-STAT LAB STAT 03/20/2020 1:00 Resul ts for this PM CDT procedure are i n the results section. BLOOD GAS, ARTERIAL STAT 03/20/2020 1:00 Resu lts for this PM CDT procedure are i n the results section. BLOOD GAS, ARTERIAL STAT 03/20/2020 1:00 Resu lts for this PM CDT procedure are i n the results section. 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 Special Needs (PRONE POSITION, NEURO MONIT ORING, MEP, SSEP, C-ARM, SHERI TABLE, SYNTHES, CRANIOPLATING SET, MICROSCOP E, [place] MICRO DISSECTOR, INTRAOPERATIVE ULTRASOUND) PROCEDURE W/ C-ARM 03/20/2020 11:24 AM CDT Intra dural extramedullary spinal tumor Special Needs (PRONE POSITION, NEURO MONIT ORING, MEP, SSEP, C-ARM, SHERI TABLE, SYNTHES, CRANIOPLATING SET, MICROSCOP E, [place]ON MICRO DISSECTOR, INTRAOPERATIVE ULTRASOUND) PROCEDURE W/ INTRAOPERATIVE 03/20/2020 11:24 AM CDT In tradural extramedullary NEUROMONITORING spinal tumor Special Needs (PRONE POSITION, NEURO MONIT ORING, MEP, SSEP, C-ARM, SHERI TABLE, SYNTHES, CRANIOPLATING SET, MICROSCOP E, RA[place]ON MICRO DISSECTOR, INTRAOPERATIVE ULTRASOUND) ULTRASOUND GUIDANCE,INTRAOPERATIVE 03/20/2020 11 :24 AM Intradural extramedullary CDT spinal tumor Special Needs (PRONE POSITION, NEURO MONIT ORING, MEP, SSEP, C-ARM, SHERI TABLE, SYNTHES, CRANIOPLATING SET, MICROSCOP E, RA[place]ON MICRO DISSECTOR, INTRAOPERATIVE ULTRASOUND) LAMINOPLASTY,CERVICAL RESECTION 03/20/2020 11:24 AM In tradural extramedullary OF INTRADURAL/ INTRAMEDULLARY CDT spinal tumo r TUMOR Special Needs (PRONE POSITION, NEURO MONIT ORING, MEP, SSEP, C-ARM, SHERI TABLE, SYNTHES, CRANIOPLATING SET, MICROSCOP E, RAHOTON MICRO DISSECTOR, INTRAOPERATIVE ULTRASOUND) CBC W/PLT COUNT & AUTO Routine 03/20/2020 5:11 AM CDT Results for this DIFFERENTIAL procedure are i n the results section . CBC W/PLT COUNT & AUTO Routine 03/20/2020 5:11 AM CDT Results for this DIFFERENTIAL procedure are i n the results section . BASIC METABOLIC PANEL (7) Routine 03/20/2020 5:11 AM CDT Results for this procedure are i n the results section . POCT-GLUCOSE METER Routine 03/19/2020 9:22 PM CDT Results for this procedure are i n the results section . SCREEN, URINE Routine 03/19/2020 5:30 PM CDT Results for this procedure are i n the results section . POCT-GLUCOSE METER Routine 03/19/2020 5:18 PM CDT Results for this procedure are i n the results section . POCT-GLUCOSE METER Routine 03/19/2020 12:54 PM CDT Results for this procedure are i n the results section . POCT-GLUCOSE METER Routine 03/19/2020 8:09 AM CDT Results for this procedure are i n the results section . CBC W/PLT COUNT & AUTO Routine 03/19/2020 5:47 AM CDT Results for this DIFFERENTIAL procedure are i n the results section . CBC W/PLT COUNT & AUTO Routine 03/19/2020 5:47 AM CDT Results for this DIFFERENTIAL procedure are i n the results section . BASIC METABOLIC PANEL (7) Routine 03/19/2020 5:47 AM CDT Results for this procedure are i n the results section . POCT-GLUCOSE METER Routine 03/19/2020 12:16 AM CDT Results for this procedure are i n the results section . POCT-GLUCOSE METER Routine 03/18/2020 9:30 PM CDT Results for this procedure are i n the results section . ECG 12-LEAD Routine 03/18/2020 6:16 PM CDT Procedure Note - Interface, External Ris In - 03/18/2020 7:54 PM CDT Ventricular Rate 90 BPM Atrial Rate 90 BPM P-R Interval 148 ms QRS Duration 90 ms Q-T Interval 346 ms QTC Calculation(Bazett) 423 ms P [place] 42 degrees R [place] 32 degrees T [place] 36 degrees Normal sinus rhythm Normal ECG No previous ECGs available ECG 12-LEAD STAT 03/18/2020 6:16 PM CDT Resu lts for this procedure are i n the results section . POCT-GLUCOSE METER Routine 03/18/2020 6:02 PM CDT Results for this procedure are i n the results section . ABORH, MANUAL STAT 03/18/2020 4:33 PM CDT Res ults for this procedure are i n the results section . TYPE AND SCREEN, AUTOMATED STAT 03/18/2020 3:58 PM CDT Results for this procedure are i n the results section . CT THORACIC SPINE WITHOUT Routine 03/18/2020 2:32 PM CDT Results for this IV CONTRAST procedure are i n the results section . SARS-COV2/RT-PCR ([facility] & STAT 03/18/2020 12:15 PM CDT Results for this REF LABS) procedure are i n the results section . POCT-GLUCOSE METER Routine 03/18/2020 11:52 AM CDT Results for this procedure are i n the results section . URINALYSIS W/ MICROSCOPIC STAT 03/18/2020 11:07 AM CDT Results for this procedure are i n the results section . XR CHEST 1 VIEW STAT 03/18/2020 7:56 AM CDT R esults for this PORTABLE/BEDSIDE procedure a re in the results section . B-TYPE NATRIURETIC FACTOR STAT 03/18/2020 4:55 AM CDT Results for this (BNP) procedure are i n the results section . MR THORACIC SPINE WITH & STAT 03/18/2020 3:35 AM CDT Results for this WITHOUT IV CONTRAST procedur e are in the results section . PT/APTT Routine 03/18/2020 2:08 AM CDT Resu lts for this procedure are i n the results section . (CELLAVISION MANUAL DIFF) STAT 03/17/2020 11:54 PM CDT Results for this procedure are i n the results section . CBC W/PLT COUNT & AUTO STAT 03/17/2020 11:54 PM CDT Results for this DIFFERENTIAL procedure are i n the results section . BASIC METABOLIC PANEL (7) STAT 03/17/2020 11:54 PM CDT Results for this procedure are i n the results section . CBC W/PLT COUNT & AUTO STAT 03/17/2020 11:54 PM CDT Results for this DIFFERENTIAL procedure are i n the results section . after 03/24/2019 Results POC-Glucose meter (03/24/2020 4:38 PM CDT)Only the most recent of45 results within the time period is included. POC-Glucose Meter 138 (H) 70 - 110 mg/dL [facility] Comment: HEALTH BCM : TESTED AT [facility] [address], [address] MEDICAL CENTER : Furniture Mechanic/Physics Professor ID = [id number] for BABAR KAM MA Specimen Blood Performing Organization Address City/State/Zipcode Phone Number [facility] [address] [place], [place] [id number] CENTER CBC with platelet count + automated diff (03/24/2020 3:59 AM CDT)Only the most recent of7 resultswithin the time period is included. Pathologist Sig nature WBC 18.0 (H) 3.5 - 10.5 [facility] RBC 4.75 3.93 - 5.22 [facility] MFORMERLY [facility] Hemoglobin 14.1 11.2 - 15.7 [facility]/DL [facility] Hematocrit 43.8 34.1 - 44.9 % [facility] MCV 92.2 79.4 - 94.8 fL [facility] MCH 29.7 25.6 - 32.2 pg [facility] MCHC 32.2 32.2 - 35.5 [facility] GM/DL [facility] RDW 14.4 11.7 - 14.4 % [facility] Platelets 375 150 - 450 K/CU [facility] MPV 9.8 9.4 - 12.3 fL [facility] nRBC 0 0 - 0 /100 WBC [facility] % Neutros 81 % [facility] % Lymphs 14 % [facility] % Monos 4 % [facility] % Eos 0 % [facility] % Baso 0 % [facility] # Neutros 14.61 (H) 1.56 - 6.13 [facility] # Lymphs 2.51 1.18 - 3.74 [facility] # Monos 0.70 (H) 0.24 - 0.36 [facility] # Eos 0.04 0.04 - 0.36 [facility] # Baso 0.03 0.01 - 0.08 [facility] Immature 1 0 - 1 % [facility] Granulocytes-Relativ [facility] EMERGENCY [facility]PART[facility] e [place] Specimen Blood Performing Organization Address City/State/Zipcode Phone Number [facility] [address] [place] [address] CENTER Basic Metabolic Panel (03/24/2020 3:59 AM CDT)Only the most recent of7 results within the time period is included. Sodium 136 136 - 145 meq/L [facility] Potassium 4.7 3.5 - 5.1 meq/L [facility] Chloride 97 (L) 98 - 107 meq/L [facility] CO2 28 22 - 29 meq/L [facility] BUN 22 (H) 7 - 21 mg/dL [facility] Creatinine 0.71 0.57 - 1.25 [facility] mg/dL [facility] Glucose 196 (H) 70 - 105 mg/dL [facility] Calcium 9.4 8.4 - 10.2 [facility] mg/dL [facility] EGFR 88Comment: ESTIMATED mL/min/1.73 sq [facility] GFR IS NOT m [facility] EMERGENCY [facility]PART[facility] ACCURATE [place] CREATININE CLEARANCE IN PREDICTING GLOMERULAR FILTRATION RATE. ESTIMATED GFR IS NOT APPLICABLE FOR DIALYSIS PATIENTS. Specimen Blood Narrative Performed At Furniture Mechanic [facility] Performing Organization Address City/State/Zipcode Phone Number [facility] [address] [place] [address] CENTER Phosphorus (03/22/2020 3:35 AM CDT) Pathologist Sig nature Phosphorus 2.9Comment: 2.3 - 4.7 mg/dL [facility] hemolyzed [place] Specimen Blood Narrative Performed At Furniture Mechanic ID - EL [facility] Performing Organization Address City/[facility] Phone Number [address] [address] CENTER Magnesium (03/22/2020 3:35 AM CDT) Pathologist Sig nature Magnesium 2.1Comment: Specimen 1.6 - 2.6 mg/dL [facility] Specimen Blood Narrative Performed At Furniture Mechanic ID - EL [facility] Performing Organization Address [facility] Phone Number [address] [address] CENTER Hemoglobin A1c (03/22/2020 3:35 AM CDT) Pathologist Sig [facility] Hemoglobin A1C 7.1 (H) 4.3 - 6.1 % [facility] Specimen Blood Performing Organization Address [facility] Phone Number [address] [address] CENTER Potassium (03/21/2020 12:16 AM CDT)Only the most recent of2 resultswithin the time period is included. Pathologist Sig nature Potassium 4.3Comment: Specimen 3.5 - 5.1 meq/L [facility] Specimen Blood Narrative Performed At Furniture Mechanic ID - [id number] [facility] Performing Organization Address City/[facility] Phone Number [address] [address] CENTER Glucose-STAT (03/20/2020 4:28 PM CDT) Pathologist Sig nature Glucose 287 (H) 70 - 105 mg/dL [facility] Specimen Blood Narrative Performed At Furniture Mechanic ID - EDASI [facility] Performing Organization Address City/State/Zipcode Phone Number [facility] [address] [place] [address] CENTER SHORT LATENCY SEP ALL LIMBS (03/20/2020 3:01 PM CDT) Specimen Narrative Performed At INTRAOPERATIVE MONITORING REPORT GE RIS Patient Name: Francia Smith [facility] Surgery Date: 03/20/2020 [place]ITE: [id number] Monitoring began at and ended at Surgeon: Simone Schultz M.D. Examining Neurologist: Mark Wallis M.D. Monitoring Technologist: Omar Calles Procedure: Thoracic Laminoplasty and i ntradural tumor removal Stimulation Parameters: Ulnar nerves i ndividually stimulated at the wrist Rate 4.7Hz, Intensity 35mA, Duration 0.3ms Posterior Tibial nerves individually stimulated at the an kle Rate 4.7Hz, Intensity 60mA, Duration 0.3ms Filters 30-500Hz, Notch Off Motor strip stimulated anterior to C3 and C4 with al ternating polarities Intensity 100-500V, Train Rate 6-9, [place] 2-3ms Filters 30-2KHz, Notch Off Recording Parameters: EP1, EP2, CV, CP 3, CP4, CPz, and FPz Free-running EEG recorded with bipolar d erivation, using CP3, CP4, referenced to FPz Transcranial electrical Motor Evoked Pot entials recorded from the Abductor Pollicis Brevis referenced to t he Abductor Digiti Minimi muscle groups, the Tibialis Anterior, an d the Abductor Hallucis Description: Intraoperative neurophysi ological monitoring was performed using a combination of upper a nd lower extremity somatosensory evoked potentials, transcr anial electrical motor evoked potentials, and free-running EEG. A re al-time connection with the examining neurologist was established an d maintained throughout the operative procedure by the monitoring te chnologist. Upper extremity somatosensory evoked potentials were rec orded peripherally at [place] and centrally at the cervical and cortical levels following ulnar nerve stimulation at the wrist. Lower extremity somatosensory evoked potentials were recorded centrall y at the cervical and cortical levels and peripherally at the Popliteal Fossa following posterior tibial nerve stimulation at th e ankle. TceMEPs were recorded peripherally from the upper and lower extremities following alternating polarity motor strip stimula tion. Post-induction, post-intubation TceMEP recording respons es to motor cortex stimulation were clear and reproducible bilaterally in upper extremities. Responses were absent in bi lateral lower extremities, despite exhaustive troubleshooting. N o significant surgically related changes in amplitude or latency of the somatosensory evoked responses or TceMEPs were noted througho ut the surgical procedure. At closing, responses were judged to be essentially unchanged from those of post-positioning baselines. Free-running EEG remained symmetrical throughout the procedure wit h no focal changes noted to occur. Conclusion: These results suggest the absence of untoward, secondary effects on anterior and posterior column function as a consequence of this surgical procedure. Free-running EEG remained symmetrical throughout the operative procedure. Mark Wallis M.D. Procedure Note Interface, External Ris In - 03/23/2020 9:07 AM CDT INTRAOPERATIVE MONITORING REPORT Patient Name: Francia Smith [facility] Surgery Date: 03/20/2020 [place] ELITE: [id number] Monitoring began at and ended at Surgeon: Simone Schultz M.D. Examining Neurologist: Mark Wallis M.D. Monitoring Technologist: Omar Calles Procedure: Thoracic Laminoplasty and in tradural tumor removal Stimulation Parameters: Ulnar nerves in dividually stimulated at the wrist Rate 4.7Hz, Intensity 35mA, Duration 0.3ms Posterior Tibial nerves individually stimulated at the an kle Rate 4.7Hz, Intensity 60mA, Duration 0.3ms Filters 30-500Hz, Notch Off Motor strip stimulated anterior to C3 and C4 with al ternating polarities Intensity 100-500V, Train Rate 6-9, [place]IVIDAD 2-3ms Filters 30-2KHz, Notch Off Recording Parameters: EP1, EP2, CV, CP3 , CP4, CPz, and FPz Free-running EEG recorded with bipolar d erivation, using CP3, CP4, referenced to FPz Transcranial electrical Motor Evoked Pot entials recorded from the Abductor Pollicis Brevis referenced to t he Abductor Digiti Minimi muscle groups, the Tibialis Anterior, an d the Abductor Hallucis Description: Intraoperative neurophysio logical monitoring was performed using a combination of upper a nd lower extremity somatosensory evoked potentials, transcr anial electrical motor evoked potentials, and free-running EEG. A rochelle l-time connection with the examining neurologist was established an d maintained throughout the operative procedure by the monitoring te chnologist. Upper extremity somatosensory evoked potentials were rec orded peripherally at [place]bs point and centrally at the cervical and cortical levels following ulnar nerve stimulation at the wrist. L ower extremity somatosensory evoked potentials were recorded centrall y at the cervical and cortical levels and peripherally at the Popliteal Fossa following posterior tibial nerve stimulation at th e ankle. TceMEPs were recorded peripherally from the upper and lower extremities following alternating polarity motor strip stimula tion. Post-induction, post-intubation TceMEP recording respons es to motor cortex stimulation were clear and reproducible bilaterally in upper extremities. Responses were absent in bi lateral lower extremities, despite exhaustive troubleshooting. No significant surgically related changes in amplitude or latency of the somatosensory evoked responses or TceMEPs were noted througho ut the surgical procedure. At closing, responses were judged to be essentially unchanged from those of post-positioning baselines. F ree-running EEG remained symmetrical throughout the procedure wit h no focal changes noted to occur. Conclusion: These results suggest the a bsence of untoward, secondary effects on anterior and posterior column function as a consequence of this surgical procedure. Free-running EEG remained symmetrical throughout the operative procedure. Mark Wallis M.D. Performing Organization Address City/State/Zipcode Phone Number GE RIS FL fluoro non-specific up to 1 hour (03/20/2020 2:02 PM CDT)Only the most recent of2 resultswithin the time period is included. Specimen Narrative Performed At Fluoroscopic unit utilized for a procedure performed i n the OR. No GE WorkVoices interpretation was requested. Refer to the operative report for findings. Refer to PACS for patient radiation dose i nformation. Procedure Note Interface, External Ris In - 03/20/2020 2:05 PM CDT Fluoroscopic unit utilized for a procedu re performed in the OR. No interpretation was requested. Refer to the operative r eport for findings. Refer to PACS for patient radiation dose information. Performing Organization Address City/[facility]/Zipcode Phone Number RIS Potassium-Stat Lab (03/20/2020 1:00 PM CDT) Pathologist Sig nature Potassium 5.1 3.6 - 5.5 meq/L [facility] Specimen Blood, Arterial Narrative Performed At [address] Performing Organization Address [facility] Phone Number [address] [address] [place] Sodium Na-Stat Lab (03/20/2020 1:00 PM CDT) Pathologist Sig nature Sodium 133 (L) 136 - 145 meq/L [facility] Specimen Blood, Arterial Narrative Performed At [address] Performing Organization Address [facility] Phone Number [address] [address] [place] Glucose-Stat Lab (03/20/2020 1:00 PM CDT) Pathologist Sig nature Glucose 184 (H) 70 - 110 mg/dL [facility] Specimen Blood, Arterial Narrative Performed At [address] Performing Organization Address [facility] Phone Number [address] [address] [place] HGB/HCT (H&H)-Stat Lab (03/20/2020 1:00 PM CDT) Pathologist Sig nature Hemoglobin 14.4 12.0 - 15.0 GM/DL [facility] Hematocrit 42.0 36.0 - 45.0 % [facility] Specimen Blood, Arterial Narrative Performed At Tem- 36.2C [facility] Performing Organization Address [facility] Phone Number [address] [address] [place] Blood gas, arterial (03/20/2020 1:00 PM CDT) Pathologist Sig nature pH, Arterial 7.34 (L) 7.35 - 7.45 [facility] pCO2, Arterial 43 35 - 45 mm Hg [facility] pO2, Arterial 211 (H) 80 - 90 mm Hg [facility] O2 Sat, Arterial 99.4 (H) 96.0 - 97.0 % [facility] HCO3, Arterial 23 21 - 29 mmol/L [facility] Base Excess, Arterial -3.2 (L) -2.0 - 3.0 [facility] mmol/L [facility] Patient Temperature 36.2 [facility] FIO2 60.0 [facility] Specimen Blood, Arterial Narrative Performed At [facility]- 36.2C [facility] Performing Organization Address [facility] Phone Number [address] [address] [place] Screen, urine (03/19/2020 5:30 PM CDT) Pathologist Sig nature Preg Test, Ur Negative [facility] Specimen Urine Performing Organization Address [facility]/Zipcode Phone Number [place] [phone] [place] [address] [place] ECG 12 lead (03/18/2020 6:16 PM CDT) Specimen Narrative Performed At This result has an attachment that is no t available. Ventricular Rate 90 BPM GE MUSE Atrial Rate 90 BPM P-R Interval 148 ms QRS Duration 90 ms Q-T Interval 346 ms QTC Calculation(Rosauratt) 423 ms P [place] 42 degrees R [place] 32 degrees T [place] 36 degrees Normal sinus rhythm Normal ECG No previous ECGs available Confirmed by MD Grace Mahboob ([id number]) on 03/19/2020 1: 53:48 PM Procedure Note Interface, External Ris In - 03/19/2020 1:53 PM CDT Ventricular Rate 90 BPM Atrial Rate 90 BPM P-R Interval 148 ms QRS Duration 90 ms Q-T Interval 346 ms QTC Calculation(Bazett) 423 ms P [place] 42 degrees R [place] 32 degrees T [place] 36 degrees Normal sinus rhythm Normal ECG No previous ECGs available Confirmed by MD Grace Mahboob ([id number]) on 03/19/2020 1:53:48 PM Performing Organization Address City/[facility] Phone Number GE MUSE ABORH, manual (03/18/2020 4:33 PM CDT) Pathologist Sig nature ABO Grouping O [facility] [place] Rh Factor NEG [facility] Specimen Blood Performing Organization Address [facility] Phone Number [address] [address] Type and screen, automated (03/18/2020 3:58 PM CDT) Pathologist Sig nature ABO/RH AUTOMATED O NEGATIVE [facility] (BEAKER) [facility] Ab Scrn NEGATIVE [facility] Specimen Blood Performing Organization Address [facility] Phone Number [phone] spine thoracic without IV contrast (03/18/2020 2:32 PM CDT) Specimen Narrative Performed At FINAL REPORT DocuTAP EXAM: CERVICAL SPINE CT WITHOUT CONTRAST CLINICAL INDICATION: Unlisted Reason f or Exam rib counting and pre-operative localizat ion COMPARISON: None TECHNIQUE: Axially oriented 2.5 mm thi ck images were obtained through the entire thoracic spine, witho ut contrast. Sagittal and coronal reformations are also provided i n osseous and soft tissue algorithms. DOSE REDUCTION: Dose modulation, iterati ve reconstruction, and/or weight-based adjustment of the mA/kV was utilized to reduce the radiation dose to as low as reasonably a chievable. FINDINGS: Alignment of the thoracic spine is withi n normal limits. Vertebral body height is maintained. Mild multilevel disc space height loss. No acute findings within the paraspinal soft tissues. IMPRESSION: There are 13 pairs of ribs, with the mos t caudal pair being relatively hypoplastic. On manager analytical radiogr aph, cholecystectomy clips project in the interspace between the 12 th and 13th pair of ribs. When comparing to prior lumbar spine MRI localizer image, if vertebrae are numbered top-bottom (begin tad at C1), the lesion of interest spans the T9 vertebral level an d T9-T10 disc space level. The last (13th) mony of ribs occur at th e level designated L1. Signed: Brooklyn Suh MD Report Verified Date/Time: 03/18/2020 15:16:56 Reading Location: [address] Room Procedure Note Interface, External Ris In - 03/18/2020 3:19 PM CDT FINAL REPORT EXAM: CERVICAL SPINE CT WITHOUT CONTRAST CLINICAL INDICATION: Unlisted Reason fo r Exam rib counting and pre-operative localizat ion COMPARISON: None TECHNIQUE: Axially oriented 2.5 mm thic k images were obtained through the entire thoracic spine, witho ut contrast. Sagittal and coronal reformations are also provided i n osseous and soft tissue algorithms. DOSE REDUCTION: Dose modulation, iterati ve reconstruction, and/or weight-based adjustment of the mA/kV was utilized to reduce the radiation dose to as low as reasonably a chievable. FINDINGS: Alignment of the thoracic spine is withi n normal limits. Vertebral body height is maintained. Mild multilevel disc space height loss. No acute findings within the paraspinal soft tissues. IMPRESSION: There are 13 pairs of ribs, with the mos t caudal pair being relatively hypoplastic. On manager analytical radiogr aph, cholecystectomy clips project in the interspace between the 12 th and 13th pair of ribs. When comparing to prior lumbar spine MRI localizer image, if vertebrae are numbered top-bottom (begin tad at C1), the lesion of interest spans the T9 vertebral level an d T9-T10 disc space level. The last (13th) mony of ribs occur at th e level designated L1. Signed: Brooklyn Suh MD Report Verified Date/Time: 03/18/2020 1 5:16:56 Reading Location: [facility] B1 C013V Neuro [place] ding Room Performing Organization Address City/State/Zipcode Phone Number GE RIS SARS-CoV2/RT-PCR (Asymptomatic ONLY) (03/18/2020 12:15 PM CDT) SARS-COV2/RT-PCR Negative Not Detected, [facility]' Negative, See [facility] external report CENTER for linked test SARS-COV-2 [facility] BROCK [facility] PERFORMING LAB [facility] Specimen Other - Nasopharyngeal wall structure (b lenin structure) Narrative Performed At Negative result for this test determines that [facility] SARS-CoV-2 RNA was not present in the specimen above the Limit of Detection (LOD). However, Negative results do not preclude SARS-CoV-2 infection and should not be used as the sole basis for treatment or patient management decisions. Negative results must be combined with clinical observations, patient history, and epidemiological information. A false negative result may occur if a specimen is improperly collected, transported or handled. A false negative result should be considered if patient's recent exposures or clinical presentation indicate that COVID-19 (SARS-CoV-2) is likely and diagnostic tests for other causes of illness are negative. Re-testing should be considered in cases of suspected false negatives. The limit of detection for this assay is 800 copies/mL. This SARS CoV-2 test is a real-time RT-PCR test intended for the qualitative detection of nucleic acid from SARS-CoV-2 in a nasopharyngeal swab specimen collected from individuals suspected of COVID-19 by their healthcare provider. This test has not been Food and Drug Administration (FDA) cleared or approved. This is a modified version of an approved Emergency Use Authorization (EUA) and is in the process of review by the FDA. Once authorized by the FDA, the issued EUA will be effective until the declaration that circumstances exist justifying the authorization of the emergency use of in vitro diagnostic tests for detection and/or diagnosis of COVID-19 is terminated under Section 564(b)(2) of the Act or the EUA is revoked under Section 564(g) of the Act. Fact Sheet for Healthcare Providers: https://www.[employer]/sites/default/files/pro duct/documents/Fact_Sheet_HC_Providers_Lyra_SA RS-CoV-2.pdf Fact Sheet for Healthcare Patients: https://www.[employer]/sites/default/files/pro duct/documents/Fact_Sheet_Patients_Lyra_SARS-C oV-2.pdf Performing Laboratory: [place] [address] Performing Organization Address City/State/Zipcode Phone Number [place] [phone] CENTER Urinalysis w/Microscopic (03/18/2020 11:07 AM CDT) Color, UA Light Yellow [facility] Clarity, UA Hazy [facility] Specific [place], 1.021 1.001 - 1.035 [facility] pH, UA 5.5 5.0 - 8.0 [facility] Protein, UA Negative Negative [facility] Glucose, UA >1000 mg/dL (A) Negative [facility] Ketones, UA Negative Negative [facility] Bilirubin, UA Negative Negative [facility] Blood, UA Negative Negative [facility] Nitrite, UA Negative Negative [facility] Leukocytes, UA Moderate (A) Negative [facility] Urobilinogen, UA 0.2 0.2 - 1.0 mg/dL [facility] RBC, UA 1 /HPF [facility] WBC, UA 10 /HPF [facility] Bacteria, UA Occasional [facility] Squam Epithel, UA 1 /HPF [facility] Specimen Source [facility] Specimen Urine Narrative Performed At Furniture Mechanic ID - [auto] [facility] Furniture Mechanic ID - tech Performing Organization Address City/State/Zipcode Phone Number [facility] [address] [place] [address] CENTER XR chest 1 view portable / bedside (03/18/2020 7:56 AM CDT) Specimen Narrative Performed At FINAL REPORT GE RIS CLINICAL HISTORY: lower extremity edema evaluate volume status TECHNIQUE: 1 view of the chest. COMPARISON: None IMPRESSION: There is pulmonary vascular congestion w ith prominence of the interstitial lung markings bilaterally. There is no lobar consolidation or significant pleural flu id. The cardiomediastinal silhouette is magnified by technique. Signed: Chiquis Spangler MD Report Verified Date/Time: 03/18/2020 08:17:48 Reading Location: [employer] [facility] [place] y Reading Room Procedure Note Interface, External Ris In - 03/18/2020 8:19 AM CDT FINAL REPORT CLINICAL HISTORY: lower extremity edema evaluate volume status TECHNIQUE: 1 view of the chest. COMPARISON: None IMPRESSION: There is pulmonary vascular congestion w ith prominence of the interstitial lung markings bilaterally. There is no lobar consolidation or significant pleural flu id. The cardiomediastinal silhouette is magnified by technique. Signed: Chiquis Spangler MD Report Verified Date/Time: 03/18/2020 0 8:17:48 Reading Location: [employer] Reading Room Performing Organization Address City/State/Zipcode Phone Number [facility] B-type Natriuretic Factor (BNP) (03/18/2020 4:55 AM CDT) Pathologist Sig nature BNP <10 0 - 100 pg/mL [facility] Specimen Blood Narrative Performed At Furniture Mechanic ID - MARCUS Haddad [facility] Performing Organization Address City/State/Zipcode Phone Number [facility] [address] [place] [address] CENTER MR thoracic spine without & with IV contrast (03/18/2020 3:35 AM CDT) Specimen Narrative Performed At FINAL REPORT RIS MR, SPINE, THORACIC, WITH \\T\\ WITHOUT C ONTRAST CLINICAL INDICATION: Unlisted Reason f or Exam. Presurgical eval, T-spine. T-spine canal stenosis. thoraci c tumor, neurologic deficit COMPARISON: None TECHNIQUE: Multiplanar multi sequential MRI of the thoracic spine was performed with and without intravenous c ontrast. FINDINGS: There is a 1.9 x 1.1 x 1.4 cm left intra dural, extramedullary mass at the level of T9. The lesion is T1 hypoin tense, mildly T2 hyperintense and enhances homogeneously. There is dis placement of the spinal cord to the right with cord compression. Ther e is no definite cord edema although evaluation is limited due to mo tion artifact. The visualized spinal cord is normal siz e and signal. The cauda equina is located at L1. Vertebral body heights and alignment are maintained. There are multilevel intraosseous hemangiomas. The intervertebral disc space heights ar e preserved. There is mild multilevel spinal canal and neural ricardo inal stenosis due to ligamentous and facet hypertrophy. The prevertebral and paraspinal soft tis sues are unremarkable. 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 Discussed with Dr. Hua there are henry rgery at 3:58 AM 03/18/2020. Signed: Elisa Armijo MD Report Verified Date/Time: 03/18/2020 04:02:06 Procedure Note Interface, External Ris In - 03/18/2020 4:04 AM CDT FINAL REPORT MR, SPINE, THORACIC, WITH \\T\\ WITHOUT C ONTRAST CLINICAL INDICATION: Unlisted Reason fo r Exam. Presurgical eval, T-spine. T-spine canal stenosis. thoraci c tumor, neurologic deficit COMPARISON: None TECHNIQUE: Multiplanar multi sequential MRI of the thoracic spine was performed with and without intravenous c ontrast. FINDINGS: There is a 1.9 x 1.1 x 1.4 cm left intra dural, extramedullary mass at the level of T9. The lesion is T1 hypoin tense, mildly T2 hyperintense and enhances homogeneously. There is dis placement of the spinal cord to the right with cord compression. Ther e is no definite cord edema although evaluation is limited due to mo tion artifact. The visualized spinal cord is normal siz e and signal. The cauda equina is located at L1. Vertebral body heights and alignment are maintained. There are multilevel intraosseous hemangiomas. The intervertebral disc space heights ar e preserved. There is mild multilevel spinal canal and neural ricardo inal stenosis due to ligamentous and facet hypertrophy. The prevertebral and paraspinal soft tis sues are unremarkable. 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 Discussed with Dr. Hua there are henry rgery at 3:58 AM 03/18/2020. Signed: Elisa Armijo MD Report Verified Date/Time: 03/18/2020 0 4:02:06 Performing Organization Address City/State/Zipcode Phone Number GE RIS PT/aPTT (03/18/2020 2:08 AM CDT) Pathologist Sig nature Protime 12.8 11.9 - 14.2 seconds [facility] INR 0.99 <=5.90 [facility] PTT 30.9 22.5 - 36.0 seconds [facility] Specimen Blood Narrative Performed At Effective 10/31/2018: PT Reference Range [facility] Change New: 11.9-14.2 Previous: 11.7-14.7 RECOMMENDED COUMADIN/WARFARIN INR THERAPY RANGES STANDARD DOSE: 2.0-3.0 Includes: PROPHYLAXIS for venous thrombosis, systemic embolization; TREATMENT for venous thrombosis and/or pulmonary embolus. HIGH RISK: Target INR is 2.5-3.5 for patients wiht mechanical heart valves. Performing Organization Address City/State/Zipcode Phone Number [facility] [address] [place] [address] CENTER Manual Differential (03/17/2020 11:54 PM CDT) Pathologist Sig nature % Neutros 62 % [facility] % Lymphs 29 % [facility] % Monos 2 % [facility] % Eos 2 % [facility] % Baso 1 % [facility] % Bands 1 0 - 10 % [facility] % Atypical Lymphs 3 (H) 0 - 0 % [facility] # Neutros 10.42 (H) 1.56 - 6.13 [facility] # Lymphs 4.87 (H) 1.18 - 3.74 [facility] # Monos 0.34 0.24 - 0.36 [facility] # Eos 0.34 0.04 - 0.36 [facility] # Baso 0.17 (H) 0.01 - 0.08 [facility] # Bands 0.17 0.00 - 0.80 [facility] # Atypical Lymphs 0.50 (H) 0.00 - 0.00 [facility] Total Counted 100 [facility] RBC Morphology Normal [facility] Platelet Morphology Normal [facility] Smudge Cells Present [facility] Platelet Conc Adequate [facility] Specimen Blood Narrative Performed At Furniture Mechanic ID - Ana Killian [facility] User comments: Slide comments: RBC: RBC Morphology normal. Performing Organization Address City/State/Zipcode Phone Number [facility] [address] [place] [address] CENTER after 03/24/2019 Advance Directives For more information, please contact: [phone] Code Status Date Activated Date Inactivated Comments Full Code 03/18/2020 2:08 AM This code status was determined by: Patient
--- OUTSIDE RECORDS SUMMARY | 2020-03-24 19:27 | XMS REPORT ---
[...] Date Status Dosage System Date [place] [id number] 100 MG Orally December 23, Active 1 tab let once a day 2019 Metformin HCl NDC [id number] 1000 MG Orally December 23, Active 1 tablet twice a day 2019 with a meal Results No Known Results Summary Purpose eClinicalWorks Submission
--- OUTSIDE RECORDS SUMMARY | 2020-03-24 19:29 | XMS REPORT | Continuity of Care Document ---
:1970 Author Organization [facility] t Address [address] [place] [address] Care Team Providers Name Role Phone Tia Stewartbarak Primary Care Physician Jose Miguel Peraza MD Attending Clinician Lindsey Fleming MD Attending Clinician Jamin Neal MD Attending Clinician Chiquis Khalil MD Attending Clinician Roberto Knox CRNA Attending Clinician Dina Hurst MD Attending Clinician Unavailable JOSE MIGUEL PERAZA Attending Clinician Unavailable LINDSEY FLEMING Admitting Clinician Unavailable Payers Payer Name Policy Type Policy Number Effective Date Expiration Date S ource OTHER-COMMERC [id number] [facility] - IALGENERIC [facility] COMMERCIALxxx [id number] 018-Present Problems Condition Condition Condition Status Onset Resolution Last Treating Co mments Source Name Details Category Date Date Treatment Clinician Date Spinal Spinal Disease Active 2019-[address] [facility] meningioma meningioma 0-17 [facility] - 00:00: Medical 00 Center Status Status Disease Active 2019-[address] [facility] post post 0-17 [facility] spinal spinal 00:00: Medical surgery surgery 00 Center Mixed Mixed Disease Active 2019-[address] [facility] hyperlipid hyperlipid 0-17 [facility] - emia emia 00:00: Medical 00 [place] Post-opera Post-opera Disease Active 2019-[address] tive pain tive pain 0-17 [facility] - 00:00: Medical 00 [place] Type 2 Type 2 Disease Active 2019-[address] [facility] diabetes diabetes 0-17 [facility] - mellitus mellitus 00:00: Medica l 00 [place] Paraparesi Paraparesi Disease Active 2019-[address] s s 0-17 [facility] - 00:00: Medical 00 [place] Mass of Mass of Disease Active 2019-[address] [facility] spinal spinal 0-13 [facility] - cord cord 00:00: Medical 00 [place] Allergies, Adverse Reactions, Alerts Allergy Allergy Status Severity Reaction(s) Onset Inactive Treating Comm ents Source Name Type Date Date Clinician Michelle Desaiensi Active 2019-[address] [facility] acin ty to 0-13 [facility] - Sodium adverse 00:00: Medical reaction 00 [place] s Tetracyc Propensi Active 2019-[address] lines ty to 0-13 [facility] - adverse 00:00: Medical reaction 00 [place] tetracyc Adverse Active nausea and [facility] line Reaction vomiting [facility] Nicotine Adverse Active rash [facility] Reaction [facility] Indocin Adverse Active nausea and [facility] Reaction vomiting [facility] Social History Social Habit Start Date Stop Date Quantity Comments Source Sex Assigned At [facility] Exposure to Not sure [facility] SARS-CoV2 [facility] (event) Tobacco use and 2020-03-20 2020-03-[address] [facility] - exposure 00:00:00 00:00:00 [facility] Alcohol intake 2020-03-20 2020-03-20 Current drinker S t [facility] - 00:00:00 00:00:00 of alcohol [facility] (finding) Smoking Status Start Date Stop Date Source Current every day smoker 2020-03-20 00:00:00 [facility] Medications Ordered Filled Start Stop Current Ordering Indication Dosage Frequency Signature Comments Components Source Medication Medication Date Date Medication? Clinician (SIG) Name Name fenofibrate 2019-06 Yes 145mg QD Take [address] (TRICOR) 0-20 mg by [facility] - 145 MG 17:35: mouth Medical tablet 17 daily. [place] empaglifloz 2019-06 Yes 10mg QD Take [address] in 0-20 by mouth [facility] - (Jardiance) 17:35: daily. Medi eri 10 mg 17 Center tablet liraglutide 2019-06 Yes 1.8mg QD Inject 1.[address] (Victoza 0-20 mg [facility] - 2-Jesu) 0.6 17:35: subcutaneo M edical mg/0.1 mL 17 usly daily Cent er (18 mg/3 . mL) PnIj atorvastati 2019-06 Yes 20mg QD Take [address] n (LIPITOR) 0-20 by mouth Luke s - 20 MG 17:35: daily. Medical tablet 17 [place] terbinafine 2019-06 Yes 250mg QD Take [address] HCL 0-20 mg by [facility] - (LamiSIL) 17:35: mouth Medical 250 mg 17 daily. Center tablet metFORMIN 2019-06 Yes 1000mg Take 1,[address] (GLUCOPHAGE 0-20 mg by [facility] - ) 1000 MG 17:35: mouth 2 Medic al tablet 17 (two) Center times daily with breakfast and dinner. cholecalcif 2019-06 Yes 5000U QD Take 5,[address] ivania, 0-20 Units by [facility] - vitamin D3, 17:35: mouth Medic al (VITAMIN 17 daily. [place] D3) 125 mcg (5,000 unit) capsule FLUoxetine 2019-06 Yes 10mg QD Take [address] (PROzac) 10 0-20 by mouth Luke s - MG tablet 17:35: daily. Medica l 17 [place] lisinopriL 2019-06 2020- No 5mg QD Take [address] (PRINIVIL,Z 0-20 10-20 by mouth Alexandra es - ESTRIL) 5 16:09: 00:00 daily. Medic al MG tablet 29 :00 [place] DULoxetine 2019-06 2020- No 10mg QD Take [address] (Cymbalta) 0-18 10-14 by mouth Luke [facility] - 20 MG 17:20: 00:00 daily. Medical capsule 43 :00 [place] ergocalcife 2019-06 2020- No Take by [facility] rol, 0-18 10-14 mouth. [facility] - vitamin D2, 17:20: 00:00 Medic al (VITAMIN D2 43 :00 Center ORAL) Januvia Januvia Yes Nereida [address] 7-21 Millender [facility] - 00:00: [facility] Metformin Metformin Yes Nereida [address] HCl HCl 7-21 Millender with a [facility] - 00:00: meal Memoria 00 l [facility] Clinics Vital Signs Vital Name Observation Time Observation Value Comments Source Systolic blood 2020-03-24 16:14:00 111 mm[Hg] [facility] Diastolic blood 2020-03-24 16:14:00 59 mm[Hg] [facility] Heart rate 2020-03-24 16:14:00 84 /min [facility] Body temperature 2020-03-24 16:14:00 36.22 [facility] Respiratory rate 2020-03-24 16:14:00 18 /min [facility] Oxygen saturation in 2020-03-24 16:14:00 96 /min [facility] Arterial blood by Medical Ce nter Pulse oximetry Body weight 2020-03-21 05:43:00 109 kg [facility] BMI 2020-03-21 05:43:00 38.79 kg/m2 [facility] Body height 2020-03-18 04:20:00 167.6 cm [facility] Procedures Procedure Date / Time Performing Clinician Source Performed POCT-GLUCOSE METER 2020-03-24 16:38:00 Murali [facility] POCT-GLUCOSE METER 2020-03-24 12:16:00 Murali [facility] POCT-GLUCOSE METER 2020-03-24 07:28:00 Murali [facility] POCT-GLUCOSE METER 2020-03-24 04:03:00 Val [facility] BASIC METABOLIC PANEL (7) 2020-03-24 03:59:00 Jai Taylor CH I [facility] CBC W/PLT COUNT & AUTO 2020-03-24 03:59:00 Jai Taylor S t [facility] POCT-GLUCOSE METER 2020-03-24 00:40:00 Danda, [facility] POCT-GLUCOSE METER 2020-03-23 20:52:00 Danda, [facility] POCT-GLUCOSE METER 2020-03-23 17:00:00 Danda, [facility] POCT-GLUCOSE METER 2020-03-23 13:59:00 Danda, [facility] POCT-GLUCOSE METER 2020-03-23 08:01:00 Danda, [facility] BASIC METABOLIC PANEL (7) 2020-03-23 04:39:00 [facility] CBC W/PLT COUNT & AUTO 2020-03-23 04:39:00 Jai Taylor [facility] POCT-GLUCOSE METER 2020-03-23 03:21:00 Danda, [facility] POCT-GLUCOSE METER 2020-03-22 21:38:00 Danda, [facility] POCT-GLUCOSE METER 2020-03-22 17:26:00 Danda, [facility] POCT-GLUCOSE METER 2020-03-22 11:35:00 Danda, [facility] POCT-GLUCOSE METER 2020-03-22 07:49:00 Danda, [facility] POCT-GLUCOSE METER 2020-03-22 07:10:00 Danda, [facility] HEMOGLOBIN A1C 2020-03-22 03:35:00 [facility] BASIC METABOLIC PANEL (7) 2020-03-22 03:35:00 Jai Taylor [facility] MAGNESIUM 2020-03-22 03:35:00 John [facility] PHOSPHORUS 2020-03-22 03:35:00 Mart [facility] CBC W/PLT COUNT & AUTO 2020-03-22 03:35:00 John, [facility] S t [facility] POCT-GLUCOSE METER 2020-03-21 20:59:00 Danda, Franchesca Neville [facility] POCT-GLUCOSE METER 2020-03-21 17:45:00 Danda, Franchesca Neville [facility] POCT-GLUCOSE METER 2020-03-21 16:11:00 Danda, Franchesca Neville [facility] POCT-GLUCOSE METER 2020-03-21 14:27:00 Danda, Franchesca Neville [facility] POCT-GLUCOSE METER 2020-03-21 13:38:00 [facility] PO[facility]SE [facility]ER 2020-03-21 12:28:00 Danda, Franchesca Neville [facility] POCT-GLUCOSE METER 2020-03-21 11:09:00 [facility]anda[facility] POCT-GLUCOSE METER 2020-03-21 10:25:00 Danda, Franchesca Neville [facility] POCT-GLUCOSE METER 2020-03-21 07:39:00 Danda, Franchesca Neville [facility] POCT-GLUCOSE METER 2020-03-21 06:15:00 Danda, [facility] BASIC METABOLIC PANEL (7) 2020-03-21 05:42:[address] [facility] CBC W/PLT COUNT & AUTO 2020-03-21 05:42:[address] [facility] POCT-GLUCOSE METER 2020-03-21 05:11:00 Danda[facility] POCT-GLUCOSE METER 2020-03-21 04:12:00 Danda, Franchesca Neville [facility] POCT-GLUCOSE METER 2020-03-21 03:17:00 Danda, Franchesca Neville [facility] POCT-GLUCOSE METER 2020-03-21 02:11:00 Danda, [facility] POCT-GLUCOSE METER 2020-03-21 01:05:00 Danda, [facility] POTASSIUM 2020-03-21 00:16:00 Scarlet Gardner, [facility] POCT-GLUCOSE METER 2020-03-21 00:15:00 Danda, [facility] POCT-GLUCOSE METER 2020-03-20 23:05:00 Danda, [facility] POCT-GLUCOSE METER 2020-03-20 22:17:00 Danda, [facility] POCT-GLUCOSE METER 2020-03-20 21:24:00 Danda, [facility] POCT-GLUCOSE METER 2020-03-20 20:24:00 Danda, [facility] POCT-GLUCOSE METER 2020-03-20 19:08:00 Danda, [facility] POCT-GLUCOSE METER 2020-03-20 18:08:00 Danda, [facility] GLUCOSE 2020-03-20 16:28:[address] [facility] POTASSIUM 2020-03-20 16:28:[address] [facility] HC SOMATOSENSORY TEST, 4 2020-03-20 15:01:00 Simone Hurst [facility] FLUORO NON-SPECIFIC UP 2020-03-20 14:02:00 [facility] Simone Dina [facility] 1 HOUR [facility] FL FLUORO NON-SPECIFIC UP 2020-03-20 13:08:00 [facility] [place] Dina [address] BLOOD GAS, ARTERIAL 2020-03-20 13:00:51 Ronaldo Khalil [facility] SODIUM NA-STAT LAB 2020-03-20 13:00:51 Ronaldo Khalil [facility] POTASSIUM-STAT LAB 2020-03-20 13:00:51 Ronaldo Khalil [facility] GLUCOSE-STAT LAB 2020-03-20 13:00:51 Ronaldo Khalil [facility] HGB/HCT (H&H) - STAT LAB 2020-03-20 13:00:51 Ronaldo Khalil [facility] LAMINOPLASTY,CERVICAL 2020-03-20 11:24:00 Antoine [facility] - RESECTION OF INTRADURAL/ Medical Center INTRAMEDULLARY TUMOR ULTRASOUND 2020-03-20 11:24:00 [facility] - GUIDANCE,INTRAOPERATIVE Medical Center PROCEDURE W/ 2020-03-20 11:24[facility]00 [facility] NEUROMONITORING PROCEDURE W/ C-ARM 2020-03-20 11:24[facility]/ O[facility]ATING 2020-03-20 11:24:00 [facility] BASIC METABOLIC PANEL (7) 2020-03-20 05:11:[address]as [facility] CBC W/PLT COUNT & AUTO 2020-03-20 05:11:00 [facility] POCT-GLUCOSE METER 2020-03-19 21:22:00 Danda, [facility] SCREEN, URINE 2020-03-19 17:30:00 Bee Pettit [facility] POCT-GLUCOSE METER 2020-03-19 17:18:00 Danda, [facility] POCT-GLUCOSE METER 2020-03-19 12:54:00 Danda, [facility] POCT-GLUCOSE METER 2020-03-19 08:09:00 Danda, [facility] BASIC METABOLIC PANEL (7) 2020-03-19 05:47:[address] [facility] CBC W/PLT COUNT & AUTO 2020-03-19 05:47:00 Danda, Franchesca Neville [facility] POCT-GLUCOSE METER 2020-03-19 00:16:00 Danda, [facility] POCT-GLUCOSE METER 2020-03-18 21:30:00 Danda, Franchesca [facility] ECG 12-LEAD 2020-03-18 18:16:24 Unknown, Hl7 Doctor [facility] POCT-GLUCOSE METER 2020-03-18 18:02:00 Val Franchesca [facility] ABORH, MANUAL 2020-03-18 16:33:00 Louisa Rodriguez [facility] TYPE AND SCREEN, AUTOMATED 2020-03-18 15:58:00 Bee Pettit [facility] CT THORACIC SPINE WITHOUT 2020-03-18 14:32:00 Simone Hurst [facility] IV CONTRAST [facility] SARS-COV2/RT-PCR ([facility] & 2020-03-18 12:15:00 Nicole Rosas [facility] - REF LABS) [facility] POCT-GLUCOSE METER 2020-03-18 11:52:00 Murali [facility] URINALYSIS W/ MICROSCOPIC 2020-03-18 11:07:00 Jessica Fleming [facility] XR CHEST 1 VIEW 2020-03-18 07:56:00 Jessica Fleming [facility] - PORTABLE/BEDSIDE Medical Center B-TYPE NATRIURETIC FACTOR 2020-03-18 04:55:00 Jessica Fleming [facility] (BNP) [facility] MR THORACIC SPINE WITH & 2020-03-18 03:35:00 Jessica Fleming [facility] - WITHOUT IV CONTRAST Medical Cent er PT/APTT 2020-03-18 02:08:00 Jessica Fleming [facility] BASIC METABOLIC PANEL (7) 2020-03-17 23:54:[address] [facility] CBC W/PLT COUNT & AUTO 2020-03-17 23:54:00 Belia Peraza [facility] DIFFERENTIAL [facility] (CELLAVISION MANUAL DIFF) 2020-03-17 23:54:[address] [facility] Plan of Care Planned Activity Planned Date Details Comments Source Future Scheduled 2023-02-[address] [facility] - Test 00:00:00 (procedure) [code = Medical Center 24520656] Future Scheduled 2021-02-26 Urine screening for [facility] - Test 00:00:00 protein (procedure) Medical Center [code = 282977361] Future Scheduled 2020-09-[address] [facility] - Test 00:00:00 measurement Medical Center (procedure) [code = 09624655] Future Scheduled 2020-02-04 INFLUENZA VACCINE (#1) [facility] Test 00:00:00 [code = INFLUENZA Medical Ce nter VACCINE (#1)] Future Scheduled 1993-01-[address] [facility] - Test 00:00:00 malignant neoplasm of Medica l Center cervix (procedure) [code = 233558477] Future Scheduled 1982-01-[address] DIABETIC EYE EXAM [facility] - Test 00:00:00 [code = DIABETIC EYE Medical Center EXAM] Future Scheduled 1982-01-[address] [facility] [facility] - Test 00:00:00 examination Medical Center (regime/therapy) [code = 222325598] Future Scheduled 1978-01-[address] [facility] - Test 00:00:00 0-64 YRS (1 of 1 - Medical C enter PPSV23) [code = PNEUMOCOCCAL VACCINE 0-64 YRS (1 of 1 - PPSV23)] Encounters Start End Encounter Admission Attending Care Care Encounter Source Date/Time Date/Time Type Type Clinicians Facility Department ID 2020-02-25 2020-02-25 Outpatient [facility] [id number] [facility] 2019-12-24 2019-12-24 Outpatient Stevie Catalan [id number] 14:38:00 14:38:00 [facility] Medicine Medicine Outpati ent Clinics 2019-12-22 2019-12-22 Outpatient Stevie Catalan [id number] 17:05:00 17:05:00 [facility] Medicine Medicine Outpati ent Clinics 2019-12-17 2019-12-17 Outpatient Stevie Hubbardt [id number] 09:00:00 09:00:00 t [facility] Medicine Medicine Outpati ent Clinics 2019-11-19 2019-11-19 [facility] [id number] 16:00:00 16:00:00 t [facility] Medicine Outpati ent Clinics 2019-10-04 2019-10-04 [facility] [id number] 16:08:00 16:08:00 [facility] Medicine Medicine Outpati ent Clinics 2019-09-30 2019-09-30 [facility] [id number] 14:31:00 14:31:00 t [facility] Medicine Outpati ent Clinics 2019-08-13 2019-08-13 [facility] [id number] 14:30:00 14:30:00 t [facility] Medicine Outpati ent Clinics 2019-07-08 2019-07-08 [facility] [id number] 22:06:00 22:06:00 t [facility] Medicine Outpati ent Clinics 2019-07-05 2019-07-05 [facility] [id number] 10:24:00 10:24:00 t [facility] Medicine Outpati ent Clinics 2019-07-03 2019-07-03 [facility] [id number] 11:45:00 11:45:00 [facility] Medicine Medicine Outpati ent Clinics 2019-03-19 2019-03-19 [facility] [id number] 13:20:00 13:20:00 [facility] Medicine Medicine Outpati ent Clinics 2019-03-18 2019-03-18 [facility] [id number] 10:35:00 10:35:00 t [facility] Medicine Outpati ent Clinics 2019-02-14 2019-02-14 [facility] [id number] 16:39:00 16:39:00 t [facility] Medicine Outpati ent Clinics 2018-12-13 2018-12-13 [facility] [id number] 16:15:00 16:15:00 t [facility] Medicine Outpati ent Clinics 2018-11-20 2018-11-20 [facility] [id number] 14:20:00 14:20:00 t [facility] Medicine Outpati ent Clinics 2018-10-05 2018-10-05 [facility] [id number] 15:44:00 15:44:00 [facility] Medicine Outpati ent Clinics 2018-08-22 2018-08-22 [facility] [id number] 15:39:00 15:39:00 [facility] Medicine Outpati ent Clinics 2018-08-22 2018-08-22 [facility] [id number] 15:12:00 15:12:00 [facility] Medicine Outpati ent Clinics 2018-08-21 2018-08-21 [facility] [id number] 09:15:00 09:15:00 [facility] Outpati ent Clinics Results Test Description Test Time Test Comments Results Result Comments Source POC-Glucose meter 2020-03-24 16:50:00 Test Item Value Reference Range Interpretation Comme nts POC-Glucose Meter (test code = 138 mg/dL 70-110 H : TESTED AT [facility] [address] [id number]) [facility], [facility] 30: Purchasing Administrator/Techni kushal ID = [id number] for BABAR KAM Lab Interpretation (test code = Abnormal 37346-5) [facility] [id number] 16:50:00 Test Item Value Reference Range Interpretation Comments POC-GLUCOSE METER 138 mg/dL 70-110 H : [facility] ([facility]ER[facility] (test code = [facility], 1538) [address]: Purchasing Administrator/Techni kushal ID = [id number] for BABAR ROGERS POCT-GLUCOSE [id number] 12:28:00 Test Item Value Reference Range Interpretation Comments POC-GLUCOSE METER 190 mg/dL 70-110 H : TESTED A T [facility] 67[address] ([facility]) (test code = [facility], 1538) [address]: Purchasing Administrator/Techni kushal ID = [id number] for EP CARINAKELLY POCT-GLUCOSE [id number] 07:40:00 Test Item Value Reference Range Interpretation Comments POC-GLUCOSE METER 157 mg/dL 70-110 H : TESTED A T [facility] 67[address] ([facility]) (test code = [facility], 1538) [address]: Purchasing Administrator/Techni kushal ID = [id number] for BABAR ROGERS CBC with platelet count + automated [id number] 05:29:00 Test Item Value Reference Range Interpretation Comments WBC (test code = 6690-2) 18.0 3.5- 10.5 K/L H RBC (test code = 789-8) 4.75 3.93- 5.22 M/L MCHC (test code = 786-4) 32.2 32.2- 35.5 GM/DL Hematocrit (test code = 4544-3) 43.8 % 34.1-44.9 MCV (test code = 787-2) 92.2 fL 79.4-94.8 MCH (test code = 785-6) 29.7 pg 25.6-32.2 RDW (test code = 788-0) 14.4 % 11.7-14.4 Platelets (test code = 777-3) 375 150- 450 K/CU MM MPV (test code = 98985-8) 9.8 fL 9.4-12.3 nRBC (test code = 413) 0 0- 0 /100 WBC % Neutros (test code = 429) 81 % % Lymphs (test code = 430) 14 % % Monos (test code = 431) 4 % % Eos (test code = 432) 0 % % Baso (test code = 437) 0 % # Neutros (test code = 670) 14.61 1.56- 6.13 K/L H # Lymphs (test code = 414) 2.51 1.18- 3.74 K/L # Monos (test code = 415) 0.70 0.24- 0.36 K/L H # Eos (test code = 416) 0.04 0.04- 0.36 K/L # Baso (test code = 417) 0.03 0.01- 0.08 K/L Immature Granulocytes-Relative 1 % 0-1 (test code = 2801) Lab Interpretation (test code = Abnormal 15855-5) [facility] W/PLT COUNT & AUTO [id number] 05:29:00 Test Item Value Reference Range Interpretation Comments WHITE BLOOD CELL COUNT (BEAKER) 18.0 K/ L 3.5-10.5 H (test code = 775) RED BLOOD CELL COUNT (BEAKER) 4.75 M/ L 3.93-5.22 (test code = 761) HEMOGLOBIN (BEAKER) (test code = 14.1 GM/DL 11.2-15.7 410) HEMATOCRIT (BEAKER) (test code = 43.8 % 34.1-44.9 411) MEAN CORPUSCULAR VOLUME (BEAKER) 92.2 fL 79.4-94.8 (test code = 753) MEAN CORPUSCULAR HEMOGLOBIN 29.7 pg 25.6-32.2 (BEAKER) (test code = 751) MEAN CORPUSCULAR HEMOGLOBIN CONC 32.2 GM/DL 32.2-35.5 (BEAKER) (test code = 752) RED CELL DISTRIBUTION WIDTH 14.4 % 11.7-14.4 (BEAKER) (test code = 412) PLATELET COUNT (BEAKER) (test 375 K/CU MM 150-450 code = 756) MEAN PLATELET VOLUME (BEAKER) 9.8 fL 9.4-12.3 (test code = 754) NUCLEATED RED BLOOD CELLS 0 /100 WBC 0-0 (BEAKER) (test code = 413) NEUTROPHILS RELATIVE PERCENT 81 % (BEAKER) (test code = 429) LYMPHOCYTES RELATIVE PERCENT 14 % (BEAKER) (test code = 430) MONOCYTES RELATIVE PERCENT 4 % (BEAKER) (test code = 431) EOSINOPHILS RELATIVE PERCENT 0 % (BEAKER) (test code = 432) BASOPHILS RELATIVE PERCENT 0 % (BEAKER) (test code = 437) NEUTROPHILS ABSOLUTE COUNT 14.61 K/ L 1.56-6.13 H (BEAKER) (test code = 670) LYMPHOCYTES ABSOLUTE COUNT 2.51 K/ L 1.18-3.74 (BEAKER) (test code = 414) MONOCYTES ABSOLUTE COUNT (BEAKER) 0.70 K/ L 0.24-0.36 H (test code = 415) EOSINOPHILS ABSOLUTE COUNT 0.04 K/ L 0.04-0.36 (BEAKER) (test code = 416) BASOPHILS ABSOLUTE COUNT (BEAKER) 0.03 K/ L 0.01-0.08 (test code = 417) IMMATURE GRANULOCYTES-RELATIVE 1 % 0-1 PERCENT (BEAKER) (test code = 2801) Basic Metabolic [id number] 05:14:00 Test Item Value Reference Range Interpretation Comments Sodium (test code = 136 meq/L 822-891 2513-2) Potassium (test code = 4.7 meq/L 3.5-5.1 2823-3) Chloride (test code = 97 meq/L 98-107 L 2075-0) CO2 (test code = 28 meq/L 22-29 2028-9) BUN (test code = 22 mg/dL 7-21 H 3094-0) Creatinine (test code 0.71 mg/dL 0.57-1.25 = 2160-0) Glucose (test code = 196 mg/dL 70-105 H 2345-7) Calcium (test code = 9.4 mg/dL 8.4-10.2 60930-4) EGFR (test code = 88 mL/min/1.73 [place] [address]-5) NOT ACCURATE CREATININE CLEARANCE IN PREDICTING GLOMERULAR FILTRATION RATE . ESTIMATED GFR I S NOT APPLICABLE FOR DIALYSIS PATIENTS. RACIEL (test code = RACIEL) Purchasing Administrator ID - [id number] Lab Interpretation Abnormal (test code = 62096-8) [facility] METABOLIC [id number] 05:14:00 Test Item Value Reference Range Interpretation Comments SODIUM (BEAKER) 136 meq/L 136-145 (test code = 381) POTASSIUM (BEAKER) 4.7 meq/L 3.5-5.1 (test code = 379) CHLORIDE (BEAKER) 97 meq/L 98-107 L (test code = 382) CO2 (BEAKER) (test 28 meq/L 22-29 code = 355) BLOOD UREA NITROGEN 22 mg/dL 7-21 H (BEAKER) (test code = 354) CREATININE (BEAKER) 0.71 mg/dL 0.57-1.25 (test code = 358) GLUCOSE RANDOM 196 mg/dL 70-105 H (BEAKER) (test code = 652) CALCIUM (BEAKER) 9.4 mg/dL 8.4-10.2 (test code = 697) EGFR (BEAKER) (test 88 mL/min/1.73 ESTIMA NICHELLE GFR IS code = 1092) sq m NOT ACCURATE CREATININE CLEARANCE IN PREDICTING GLOMERULAR FILTRATION RATE . ESTIMATED GFR I S NOT APPLICABLE FOR DIALYSIS PATIEN TS. Purchasing Administrator ID - EDASIPOCT-GLUCOSE [id number] 04:15:00 Test Item Value Reference Range Interpretation Comments POC-GLUCOSE METER 203 mg/dL 70-110 H : Notified RN/MD: [facility] (test code AT [place] [address] [place] = 1538) [facility], [facility] 30: Purchasing Administrator/Techni kushal ID = [id number] for LEGA SPI, ANITA POCT-GLUCOSE [id number] 00:51:00 Test Item Value Reference Range Interpretation Comments POC-GLUCOSE METER 193 mg/dL 70-110 H : Notified RN/MD: TESTED ([facility]) (test code AT [place] [address] [address] = 1538) [facility], [facility] 30: Purchasing Administrator/Techni kushal ID = [id number] for LEGA SPI, ANITA POCT-GLUCOSE [id number] 21:04:00 Test Item Value Reference Range Interpretation Comments POC-GLUCOSE METER 141 mg/dL 70-110 H : Notified RN/MD: [facility] (test code AT [place] [address] [place] = 1538) [facility], [facility] 30: Purchasing Administrator/Techni kushal ID = [id number] for LEGA SPI, ANITA POCT-GLUCOSE [id number] 17:11:00 Test Item Value Reference Range Interpretation Comments POC-GLUCOSE METER 212 mg/dL 70-110 H : TESTED A T [place] [address] ([facility] (test code = NOELLE Espino [facility], 1538) [address]: Purchasing Administrator/Techni kushal ID = [id number] for PAULO LEE POCT-GLUCOSE [id number] 14:13:00 Test Item Value Reference Range Interpretation Comments POC-GLUCOSE METER 226 mg/dL 70-110 H : TESTED A T [facility] 6720 (BEBLAIR) (test code = [place], 1538) [address]: Purchasing Administrator/Techni kushal ID = [id number] for SA NCHEZ, SHAMAR SHORT-LATENCY SPE, ALL [id number] 09:07:00 [facility] 1970 Sex: FINTRAOPERATIVE MONITORING REPORT Patient Name: Nicolas Smith [facility] Surgery Date: 03/20/2020 [place] EL[place]: [id number] Monitoring began at and ended at Surgeon: Simone Hurst M.D. Examining Neurologist: Mark Wallis M.D. 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 Stimulation Parameters: Ulnar nerves individually stimulated at the wrist Rate 4.7Hz, Intensity 35mA, Duration 0.3ms Posterior Tibial nerves individually stimulated at the ankle Rate 4.7Hz, Intensity 60mA, Duration 0.3ms Filters 30-500Hz, Notch Off Motor strip stimulated anterior to C3 and C4 with alternating polarities Intensity 100-500V, Train Rate 6-9, NATIVIDAD 2-3ms Filters 30-2KHz, Notch Off Recording Parameters: EP1, EP2, CV, CP3, CP4, CPz, and FPz Free-running EEG recorded with bipolar derivation, using CP3, CP4, referenced to FPz Transcranial electrical Motor Evoked Potentials recorded from the Abductor Pollicis Brevis referenced to the Abductor Digiti Minimi muscle groups, the Tibialis Anterior, and the Abductor Hallucis Description: Intraoperative neurophysiological monitoring was performed using a combination of upper and lower extremity somatosensory evoked potentials, transcranial electrical motor evoked potentials, and free-running EEG. A real- time connection with the examining neurologist was established and maintained throughout the operative procedure by the monitoring technologist. Upper extremity somatosensory evoked potentials were recorded peripherally at Erbs point and centrally at the cervical and cortical levels following ulnar nerve stimulation at the wrist. Lower extremity somatosensory evoked potentials were recorded centrally at the cervical and cortical levels and peripherally at the Popliteal Fossa following posterior tibial nerve stimulation at the ankle. TceMEPs were recorded peripherally from the upper andlower extremities following alternating polarity motor strip stimulation. Post-induction, post-intubation TceMEP recording responses to motor cortex stimulation were clear and reproducible bilaterallyin upper extremities. Responses were absent in bilateral lower extremities, despite exhaustive troubleshooting. No significant surgically related changes in amplitude or latency of the somatosensory evoked responses or TceMEPs were noted throughout the surgical procedure. At closing, responses werejudged to be essentially unchanged from those of post-positioning baselines. Free-running EEG remained symmetrical throughout the procedure with no focal changes noted to occur. Conclusion: These results suggest the absence of untoward, secondary effects on anterior and posterior column function as a consequence of this surgical procedure. Free-running EEG remained symmetrical throughout the operative procedure. Mark Wallis M.D. SHORT LATENCY SEP ALL [id number] 09:07:00Interface, External Ris In - 03/23/2020 9:07 AM CDTINTRAOPERATIVE MONITORING REPORT Patient Name: Nicolas Smith [facility] Surgery Date: 03/20/2020 [place]: [id number] Monitoring began at and ended at Surgeon: Simone Hurst M.D. Examining Neurologist: Mark Wallis M.D. 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 Stimulation Parameters: Ulnar nerves individually stimulated at the wrist Rate 4.7Hz, Intensity 35mA, Duration 0.3ms Posterior Tibial nerves individually stimulated at the ankle Rate 4.7Hz, Intensity 60mA, Duration 0.3ms Filters 30-500Hz, Notch Off Motor strip stimulated anterior to C3 and C4 with alternating polarities Intensity 100-500V, Train Rate 6-9, NATIVIDAD 2-3ms Filters 30-2KHz, Notch Off Recording Parameters: EP1, EP2, CV, CP3, CP4, CPz, and FPz Free-running EEG recorded with bipolar derivation, using CP3,CP4, referenced to FPz Transcranial electrical Motor Evoked Potentials recorded from the Abductor Pollicis Brevis referenced to the Abductor Digiti Minimi muscle groups, the Tibialis Anterior, and the Abductor Hallucis Description: Intraoperative neurophysiological monitoring was performed usinga combination of upper and lower extremity somatosensory evoked potentials, transcranial electrical motor evoked potentials, and free-running EEG. A real- time connection with the examining neurologistwas established and maintained throughout the operative procedure by the monitoring technologist. Upper extremity somatosensory evoked potentials were recorded peripherally at Erbs point and centrallyat the cervical and cortical levels following ulnar nerve stimulation at the wrist. Lower extremitysomatosensory evoked potentials were recorded centrally at the cervical and cortical levels and peripherally at the Popliteal Fossa following posterior tibial nerve stimulation at the ankle. TceMEPs were recorded peripherally from the upper and lower extremities following alternating polarity motor strip stimulation. Post-induction, post- intubation TceMEP recording responses to motor cortex stimulation were clear and reproducible bilaterally in upper extremities. Responses were absent in bilaterallower extremities, despite exhaustive troubleshooting. No significant surgically related changes in amplitude or latency of the somatosensory evoked responses or TceMEPs were noted throughout the surgical procedure. At closing, responses were judged to be essentially unchanged from those of post-positioning baselines. Free-running EEG remained symmetrical throughout the procedure with no focal changes noted to occur. Conclusion: These results suggest the absence of untoward, secondary effects on anterior and posterior column function as a consequence of this surgical procedure. Free-running EEG remained symmetrical throughout the operative procedure. Mark Wallis M.D. [facility] [id number] 08:13:00 Test Item Value Reference Range Interpretation Comments POC-GLUCOSE METER 148 mg/dL 70-110 H : TESTED A T [facility] 6720 (BEAKER) (test code = JOSE AJAGDEEP [place], 1538) [address]: Purchasing Administrator/Techni kushal ID = [id number] for MIRTA PAULO HOPKINS MARIAH CBC W/PLT COUNT & AUTO [id number] 05:51:00 Test Item Value Reference Range Interpretation Comments WHITE BLOOD CELL COUNT (BEAKER) 14.3 K/ L 3.5-10.5 H (test code = 775) RED BLOOD CELL COUNT (BEAKER) 4.64 M/ L 3.93-5.22 (test code = 761) HEMOGLOBIN (BEAKER) (test code = 14.1 GM/DL 11.2-15.7 410) HEMATOCRIT (BEAKER) (test code = 43.3 % 34.1-44.9 411) MEAN CORPUSCULAR VOLUME (BEAKER) 93.3 fL 79.4-94.8 (test code = 753) MEAN CORPUSCULAR HEMOGLOBIN 30.4 pg 25.6-32.2 (BEAKER) (test code = 751) MEAN CORPUSCULAR HEMOGLOBIN CONC 32.6 GM/DL 32.2-35.5 (BEAKER) (test code = 752) RED CELL DISTRIBUTION WIDTH 14.6 % 11.7-14.4 H (BEAKER) (test code = 412) PLATELET COUNT (BEAKER) (test 370 K/CU MM 150-450 code = 756) MEAN PLATELET VOLUME (BEAKER) 9.4 fL 9.4-12.3 (test code = 754) NUCLEATED RED BLOOD CELLS 0 /100 WBC 0-0 (BEAKER) (test code = 413) NEUTROPHILS RELATIVE PERCENT 63 % (BEAKER) (test code = 429) LYMPHOCYTES RELATIVE PERCENT 29 % (BEAKER) (test code = 430) MONOCYTES RELATIVE PERCENT 8 % (BEAKER) (test code = 431) EOSINOPHILS RELATIVE PERCENT 1 % (BEAKER) (test code = 432) BASOPHILS RELATIVE PERCENT 0 % (BEAKER) (test code = 437) NEUTROPHILS ABSOLUTE COUNT 8.95 K/ L 1.56-6.13 H (BEAKER) (test code = 670) LYMPHOCYTES ABSOLUTE COUNT 4.10 K/ L 1.18-3.74 H (BEAKER) (test code = 414) MONOCYTES ABSOLUTE COUNT (BEAKER) 1.08 K/ L 0.24-0.36 H (test code = 415) EOSINOPHILS ABSOLUTE COUNT 0.09 K/ L 0.04-0.36 (BEAKER) (test code = 416) BASOPHILS ABSOLUTE COUNT (BEAKER) 0.03 K/ L 0.01-0.08 (test code = 417) IMMATURE GRANULOCYTES-RELATIVE 1 % 0-1 PERCENT (BEAKER) (test code = 2801) BASIC METABOLIC [id number] 05:37:00 Test Item Value Reference Range Interpretation Comments SODIUM (BEAKER) 137 meq/L 136-145 (test code = 381) POTASSIUM (BEAKER) 4.3 meq/L 3.5-5.1 (test code = 379) CHLORIDE (BEAKER) 97 meq/L 98-107 L (test code = 382) CO2 (BEAKER) (test 30 meq/L 22-29 H code = 355) BLOOD UREA NITROGEN 20 mg/dL 7-21 (BEAKER) (test code = 354) CREATININE (BEAKER) 0.74 mg/dL 0.57-1.25 (test code = 358) GLUCOSE RANDOM 156 mg/dL 70-105 H (BEAKER) (test code = 652) CALCIUM (BEAKER) 9.4 mg/dL 8.4-10.2 (test code = 697) EGFR (BEAKER) (test 84 mL/min/1.73 ESTIMA NICHELLE GFR IS code = 1092) sq m NOT ACCURATE CREATININE CLEARANCE IN PREDICTING GLOMERULAR FILTRATION RATE . ESTIMATED GFR I S NOT APPLICABLE FOR DIALYSIS PATIEN TS. Purchasing Administrator ID - EDASIPOCT-GLUCOSE [id number] 03:34:00 Test Item Value Reference Range Interpretation Comments POC-GLUCOSE METER 154 mg/dL 70-110 H : Notified RN/MD: (BEAKER) (test code = TESTED AT [facility] 4666 4858) [facility], [address]: Purchasing Administrator/Techni kushal ID = [id number] for [place] ATT, SHWETA POCT-GLUCOSE [id number] 21:50:00 Test Item Value Reference Range Interpretation Comments POC-GLUCOSE METER 203 mg/dL 70-110 H : Notified RN/MD: ([facility]) (test code = TESTED AT [facility] 6720 153) [facility], [address]: Purchasing Administrator/Techni kushal ID = [id number] for [place] ATT, SHWETA POCT-GLUCOSE [id number] 17:49:00 Test Item Value Reference Range Interpretation Comments POC-GLUCOSE METER 177 mg/dL 70-110 H : [facility] ([facility]) (test code = [facility], 153) [address]: Purchasing Administrator/Techni kushal ID = [id number] for SHANON LENZ POCT-GLUCOSE [id number] 11:47:00 Test Item Value Reference Range Interpretation Comments POC-GLUCOSE METER 129 mg/dL 70-110 H : [facility] ([facility]) (test code = [facility], 153) [address]: Purchasing Administrator/Techni kushal ID = [id number] for Magnolia Oliver POCT-GLUCOSE [id number] 08:01:00 Test Item Value Reference Range Interpretation Comments POC-GLUCOSE METER 221 mg/dL 70-110 H : [facility] ([facility]) (test code = [facility], 153) [address]: Purchasing Administrator/Techni kushal ID = [id number] for Renita Kelley Hemoglobin [id number] 07:40:00 Test Item Value Reference Range Interpretation Comments Hemoglobin A1C (test code = 4548-4) 7.1 % 4.3-6.1 H Lab Interpretation (test code = Abnormal 33363-2) [facility] [id number] 07:40:00 Test Item Value Reference Range Interpretation Comments HEMOGLOBIN A1C (BEAKER) (test code = 7.1 % 4.3-6.1 H 368) POCT-GLUCOSE [id number] 07:22:00 Test Item Value Reference Range Interpretation Comments POC-GLUCOSE METER 142 mg/dL 70-110 H : TESTED A T [facility] 6720 (BEAKER) (test code = [facility], 1538) [address]: Purchasing Administrator/Techni kushal ID = [id number] for Magnolia Oliver [id number] 04:18:00 Test Item Value Reference Range Interpretation Comments Magnesium (test code = 2.1 mg/dL 1.6-2.6 Speci men 17220-4) slightly hemolyzed RACIEL (test code = RACIEL) Purchasing Administrator ID - EDASI Lab Interpretation Normal (test code = 21989-3) [facility] 04:18:00 Test Item Value Reference Range Interpretation Comments Phosphorus (test code 2.9 mg/dL 2.3-4.7 Specim en = 2777-1) slightly hemolyzed RACIEL (test code = RACIEL) Purchasing Administrator ID - EDASI Lab Interpretation Normal (test code = 27744-5) [id number] 04:18:00 Test Item Value Reference Range Interpretation Comments MAGNESIUM (BEAKER) 2.1 mg/dL 1.6-2.6 Specimen slightly (test code = 627) hemolyzed Purchasing Administrator ID - [id number] 04:18:00 Test Item Value Reference Range Interpretation Comments PHOSPHORUS (BEAKER) 2.9 mg/dL 2.3-4.7 Specimen slightly (test code = 604) hemolyzed Purchasing Administrator ID - EDASIBASIC METABOLIC [id number] 04:18:00 Test Item Value Reference Range Interpretation Comments SODIUM (BEAKER) 137 meq/L 136-145 (test code = 381) POTASSIUM (BEAKER) 4.5 meq/L 3.5-5.1 Specimen slightly (test code = 379) hemolyzed CHLORIDE (BEAKER) 102 meq/L 98-107 (test code = 382) CO2 (BEAKER) (test 26 meq/L 22-29 code = 355) BLOOD UREA NITROGEN 21 mg/dL 7-21 (BEAKER) (test code = 354) CREATININE (BEAKER) 0.69 mg/dL 0.57-1.25 Specimen slightly (test code = 358) hemolyzed GLUCOSE RANDOM 133 mg/dL 70-105 H (BEAKER) (test code = 652) CALCIUM (BEAKER) 9.3 mg/dL 8.4-10.2 (test code = 697) EGFR (BEAKER) (test 91 mL/min/1.73 ESTIMA NICHELLE GFR IS code = 1092) sq m NOT ACCURATE CREATININE CLEARANCE IN PREDICTING GLOMERULAR FILTRATION RATE . ESTIMATED GFR I S NOT APPLICABLE FOR DIALYSIS PATIEN TS. Purchasing Administrator ID - EDASICBC W/PLT COUNT & AUTO [id number] 04:06:00 Test Item Value Reference Range Interpretation Comments WHITE BLOOD CELL COUNT (BEAKER) 16.1 K/ L 3.5-10.5 H (test code = 775) RED BLOOD CELL COUNT (BEAKER) 4.73 M/ L 3.93-5.22 (test code = 761) HEMOGLOBIN (BEAKER) (test code = 14.2 GM/DL 11.2-15.7 410) HEMATOCRIT (BEAKER) (test code = 44.3 % 34.1-44.9 411) MEAN CORPUSCULAR VOLUME (BEAKER) 93.7 fL 79.4-94.8 (test code = 753) MEAN CORPUSCULAR HEMOGLOBIN 30.0 pg 25.6-32.2 (BEAKER) (test code = 751) MEAN CORPUSCULAR HEMOGLOBIN CONC 32.1 GM/DL 32.2-35.5 L (BEAKER) (test code = 752) RED CELL DISTRIBUTION WIDTH 14.3 % 11.7-14.4 (BEAKER) (test code = 412) PLATELET COUNT (BEAKER) (test 361 K/CU MM 150-450 code = 756) MEAN PLATELET VOLUME (BEAKER) 9.6 fL 9.4-12.3 (test code = 754) NUCLEATED RED BLOOD CELLS 0 /100 WBC 0-0 (BEAKER) (test code = 413) NEUTROPHILS RELATIVE PERCENT 72 % (BEAKER) (test code = 429) LYMPHOCYTES RELATIVE PERCENT 19 % (BEAKER) (test code = 430) MONOCYTES RELATIVE PERCENT 8 % (BEAKER) (test code = 431) EOSINOPHILS RELATIVE PERCENT 0 % (BEAKER) (test code = 432) BASOPHILS RELATIVE PERCENT 0 % (BEAKER) (test code = 437) NEUTROPHILS ABSOLUTE COUNT 11.57 K/ L 1.56-6.13 H (BEAKER) (test code = 670) LYMPHOCYTES ABSOLUTE COUNT 3.10 K/ L 1.18-3.74 (BEAKER) (test code = 414) MONOCYTES ABSOLUTE COUNT (BEAKER) 1.32 K/ L 0.24-0.36 H (test code = 415) EOSINOPHILS ABSOLUTE COUNT 0.01 K/ L 0.04-0.36 L (BEAKER) (test code = 416) BASOPHILS ABSOLUTE COUNT (BEAKER) 0.02 K/ L 0.01-0.08 (test code = 417) IMMATURE GRANULOCYTES-RELATIVE 0 % 0-1 PERCENT (BEAKER) (test code = 2801) POCT-GLUCOSE [id number] 21:21:00 Test Item Value Reference Range Interpretation Comments POC-GLUCOSE METER 117 mg/dL 70-110 H : TESTED A T [facility] 6720 (BEAKER) (test code [facility], = 1538) [address]: Purchasing Administrator/Techni kushal ID = [id number] for INES HARKINS POCT-GLUCOSE [id number] 17:58:00 Test Item Value Reference Range Interpretation Comments POC-GLUCOSE METER 145 mg/dL 70-110 H : TESTED A T [facility] 6720 (BEAKER) (test code = [facility], 1538) [address]: Purchasing Administrator/Techni kushal ID = [id number] for An akani, Tequila POCT-GLUCOSE [id number] 16:23:00 Test Item Value Reference Range Interpretation Comments POC-GLUCOSE METER 152 mg/dL 70-110 H : TESTED A T [facility] 6720 (BEAKER) (test code = [facility], 1538) [address]: Purchasing Administrator/Techni kushal ID = [id number] for NORRIS MARTINEZA POCT-GLUCOSE [id number] 14:39:00 Test Item Value Reference Range Interpretation Comments POC-GLUCOSE METER 104 mg/dL 70-110 : TESTED A T [facility] 6720 (BEAKER) (test code = [facility], 1538) [address]: Purchasing Administrator/Techni kushal ID = [id number] for An akani, Tequila POCT-GLUCOSE [id number] 13:50:00 Test Item Value Reference Range Interpretation Comments POC-GLUCOSE METER 112 mg/dL 70-110 H : TESTED A T [facility] 6720 (BEAKER) (test code = [facility], 1538) [address]: Purchasing Administrator/Techni kushal ID = [id number] for An akani, Tequila POCT-GLUCOSE [id number] 12:43:00 Test Item Value Reference Range Interpretation Comments POC-GLUCOSE METER 149 mg/dL 70-110 H : TESTED A T [facility] 6720 (BEAKER) (test code = [facility], [facility]8) [address]: Purchasing Administrator/Techni kushal ID = [id number] for An Tequila durant POCT-GLUCOSE [id number] 11:22:00 Test Item Value Reference Range Interpretation Comments POC-GLUCOSE METER 199 mg/dL 70-110 H : TESTED A T [facility] 6720 (BEAKER) (test code = [facility], [facility]8) [address]: Purchasing Administrator/Techni kushal ID = [id number] for An bhargav, Tequila POCT-GLUCOSE [id number] 10:37:00 Test Item Value Reference Range Interpretation Comments POC-GLUCOSE METER 235 mg/dL 70-110 H : TESTED A T [facility] 6720 (BEAKER) (test code = [facility], [facility]) [address]: Purchasing Administrator/Techni kushal ID = [id number] for NATE MARTINEZ POCT-GLUCOSE [id number] 07:57:00 Test Item Value Reference Range Interpretation Comments POC-GLUCOSE METER 162 mg/dL 70-110 H : TESTED A T [facility] 6720 (BEAKER) (test code = [facility], [facility]) [address]: Purchasing Administrator/Techni kushal ID = [id number] for Li (V), Abril BASIC METABOLIC [id number] 06:43:00 Test Item Value Reference Range Interpretation Comments SODIUM (BEAKER) 136 meq/L 136-145 (test code = 381) POTASSIUM (BEAKER) 4.3 meq/L 3.5-5.1 (test code = 379) CHLORIDE (BEAKER) 104 meq/L 98-107 (test code = 382) CO2 (BEAKER) (test 23 meq/L 22-29 code = 355) BLOOD UREA NITROGEN 18 mg/dL 7-21 (BEAKER) (test code = 354) CREATININE (BEAKER) 0.70 mg/dL 0.57-1.25 (test code = 358) GLUCOSE RANDOM 147 mg/dL 70-105 H (BEAKER) (test code = 652) CALCIUM (BEAKER) 9.3 mg/dL 8.4-10.2 (test code = 697) EGFR (BEAKER) (test 89 mL/min/1.73 ESTIMA NICHELLE GFR IS code = 1092) sq m NOT ACCURATE CREATININE CLEARANCE IN PREDICTING GLOMERULAR FILTRATION RATE . ESTIMATED GFR I S NOT APPLICABLE FOR DIALYSIS PATIEN TS. Purchasing Administrator ID - LACBC W/PLT COUNT & AUTO [id number] 06:38:00 Test Item Value Reference Range Interpretation Comments WHITE BLOOD CELL COUNT (BEAKER) 17.2 K/ L 3.5-10.5 H (test code = 775) RED BLOOD CELL COUNT (BEAKER) 4.54 M/ L 3.93-5.22 (test code = 761) HEMOGLOBIN (BEAKER) (test code = 13.6 GM/DL 11.2-15.7 410) HEMATOCRIT (BEAKER) (test code = 42.1 % 34.1-44.9 411) MEAN CORPUSCULAR VOLUME (BEAKER) 92.7 fL 79.4-94.8 (test code = 753) MEAN CORPUSCULAR HEMOGLOBIN 30.0 pg 25.6-32.2 (BEAKER) (test code = 751) MEAN CORPUSCULAR HEMOGLOBIN CONC 32.3 GM/DL 32.2-35.5 (BEAKER) (test code = 752) RED CELL DISTRIBUTION WIDTH 14.5 % 11.7-14.4 H (BEAKER) (test code = 412) PLATELET COUNT (BEAKER) (test 443 K/CU MM 150-450 code = 756) MEAN PLATELET VOLUME (BEAKER) 9.6 fL 9.4-12.3 (test code = 754) NUCLEATED RED BLOOD CELLS 0 /100 WBC 0-0 (BEAKER) (test code = 413) NEUTROPHILS RELATIVE PERCENT 79 % (BEAKER) (test code = 429) LYMPHOCYTES RELATIVE PERCENT 14 % (BEAKER) (test code = 430) MONOCYTES RELATIVE PERCENT 7 % (BEAKER) (test code = 431) EOSINOPHILS RELATIVE PERCENT 0 % (BEAKER) (test code = 432) BASOPHILS RELATIVE PERCENT 0 % (BEAKER) (test code = 437) NEUTROPHILS ABSOLUTE COUNT 13.54 K/ L 1.56-6.13 H (BEAKER) (test code = 670) LYMPHOCYTES ABSOLUTE COUNT 2.33 K/ L 1.18-3.74 (BEAKER) (test code = 414) MONOCYTES ABSOLUTE COUNT (BEAKER) 1.22 K/ L 0.24-0.36 H (test code = 415) EOSINOPHILS ABSOLUTE COUNT 0.00 K/ L 0.04-0.36 L (BEAKER) (test code = 416) BASOPHILS ABSOLUTE COUNT (BEAKER) 0.02 K/ L 0.01-0.08 (test code = 417) IMMATURE GRANULOCYTES-RELATIVE 0 % 0-1 PERCENT (BEAKER) (test code = 2801) POCT-GLUCOSE [id number] 06:29:00 Test Item Value Reference Range Interpretation Comments POC-GLUCOSE METER 128 mg/dL 70-110 H : TESTED A T [facility] 6720 (BEAKER) (test code = [facility], 153) [address]: Purchasing Administrator/Techni kushal ID = [id number] for MAMI ROGERS POCT-GLUCOSE [id number] 05:23:00 Test Item Value Reference Range Interpretation Comments POC-GLUCOSE METER 161 mg/dL 70-110 H : TESTED A T [facility] 6720 (BEAKER) (test code = [facility], 153) [address]: Purchasing Administrator/Techni kushal ID = [id number] for ROGELIO BLOOMSON POCT-GLUCOSE [id number] 04:23:00 Test Item Value Reference Range Interpretation Comments POC-GLUCOSE METER 200 mg/dL 70-110 H : TESTED A T [facility] 6720 (BEAKER) (test code = [facility], 153) [address]: Purchasing Administrator/Techni kushal ID = [id number] for PAULO ACEVEDO, MAMI POCT-GLUCOSE [id number] 03:30:00 Test Item Value Reference Range Interpretation Comments POC-GLUCOSE METER 256 mg/dL 70-110 H : TESTED A T [facility] 6720 (BEAKER) (test code = [facility] [employer] [facility], 153) [address]: Purchasing Administrator/Techni kushal ID = [id number] for TY LUCASO, FANG POCT-GLUCOSE [id number] 02:23:00 Test Item Value Reference Range Interpretation Comments POC-GLUCOSE METER 236 mg/dL 70-110 H : TESTED A T [facility] 6720 (BEAKER) (test code = [facility], 153) [address]: Purchasing Administrator/Techni kushal ID = [id number] for IR PARVEZ FLORES POCT-GLUCOSE [id number] 01:19:00 Test Item Value Reference Range Interpretation Comments POC-GLUCOSE METER 214 mg/dL 70-110 H : TESTED A T [facility] 6720 (BEAKER) (test code = [facility], 153) 60067: Purchasing Administrator/Techni kushal ID = [id number] for Li (V), Abril [id number] 00:46:00 Test Item Value Reference Range Interpretation Comments Potassium (test code = 4.3 meq/L 3.5-5.1 Speci men 2823-3) slightly hemolyzed RACIEL (test code = RACIEL) Purchasing Administrator ID - LA Lab Interpretation Normal (test code = 60157-1) [facility] Test Item Value Reference Range Interpretation Comments POTASSIUM (BEAKER) 4.3 meq/L 3.5-5.1 Specimen slightly (test code = 379) hemolyzed Purchasing Administrator ID - LAPOCT-GLUCOSE [id number] 00:29:00 Test Item Value Reference Range Interpretation Comments POC-GLUCOSE METER 243 mg/dL 70-110 H : TESTED A T [facility] 6720 (BEAKER) (test code = [facility], 153) 25937: Purchasing Administrator/Techni kushal ID = [id number] for Li (V), Abril POCT-GLUCOSE [id number] 23:22:00 Test Item Value Reference Range Interpretation Comments POC-GLUCOSE METER 119 mg/dL 70-110 H : TESTED A T [facility] 6720 (BEAKER) (test code = [facility], 153) 67092: Purchasing Administrator/Techni kushal ID = [id number] for FANG BLOOM POCT-GLUCOSE [id number] 22:32:00 Test Item Value Reference Range Interpretation Comments POC-GLUCOSE METER 263 mg/dL 70-110 H : TESTED A T [facility] 6720 (BEAKER) (test code = [facility], 153) 04021: Purchasing Administrator/Techni kushal ID = [id number] for Li (V), Abril POCT-GLUCOSE [id number] 21:36:00 Test Item Value Reference Range Interpretation Comments POC-GLUCOSE METER 222 mg/dL 70-110 H : TESTED A T [facility] 6720 (BEAKER) (test code = [facility], 1538) 29048: Purchasing Administrator/Techni kushal ID = [id number] for AFNG BLOOM POCT-GLUCOSE [id number] 20:41:00 Test Item Value Reference Range Interpretation Comments POC-GLUCOSE METER 191 mg/dL 70-110 H : TESTED A T [facility] 6720 (BEAKER) (test code = [facility], 1538) 49351: Purchasing Administrator/Techni kushal ID = [id number] for FANG BLOOM POCT-GLUCOSE [id number] 19:19:00 Test Item Value Reference Range Interpretation Comments POC-GLUCOSE METER 235 mg/dL 70-110 H : TESTED A T [facility] 6720 (BEAKER) (test code = [facility], 1538) 51617: Purchasing Administrator/Techni kushal ID = [id number] for RUKHSANA DOWNING POCT-GLUCOSE [id number] 18:21:00 Test Item Value Reference Range Interpretation Comments POC-GLUCOSE METER 249 mg/dL 70-110 H : TESTED A T [facility] 6720 (BEAKER) (test code = [facility], 1538) 00335: Purchasing Administrator/Techni kushal ID = [id number] for RUKHSANA DOWINNG [id number] 16:49:00 Test Item Value Reference Range Interpretation Comments Glucose (test code = 287 mg/dL 70-105 H 2345-7) RACIEL (test code = RACIEL) Purchasing Administrator ID - [id number] Lab Interpretation (test Abnormal code = 34394-7) [facility] [id number] 16:49:00 Test Item Value Reference Range Interpretation Comments POTASSIUM (BEAKER) 5.0 meq/L 3.5-5.1 Specimen moderately (test code = 379) hemolyzed Purchasing Administrator ID - [id number] 16:49:00 Test Item Value Reference Range Interpretation Comments GLUCOSE RANDOM (BEAKER) (test code 287 mg/dL 70-105 H = 652) Purchasing Administrator ID - EDASIFL, FLUORO, NON-SPECIFIC, UP TO 1 [id number] 14:05:02 Reason for exam:->T9 LAMINOPLASTY ,RESECTION OF INTRADURAL TUMOR,INTRAOPERATIVE ULTRASOUND [facility] : 1970 Sex: FFluoroscopic unit utilized for a procedure performed in the OR. No interpretation was requested. Refer to the operative report for findings. Refer to PACS for patient radiation dose information.FL fluoro non-specific up to 1 [id number] 14:02:00 Interface, External Ris In - 03/20/2020 2:05 PM CDTFluoroscopic unit utilized for a procedure performed in the OR. No interpretation was requested. Refer to the operative report for findings. Referto PACS for patient radiation dose information.[facility] CenterBlood gas, [id number] 13:33:00 Test Item Value Reference Range Interpretation Comments pH, Arterial (test code = 2744-1) 7.34 7.35-7.45 L pCO2, Arterial (test code = 43 35- 45 mm Hg 2019-01) pO2, Arterial (test code = 211 80- 90 mm Hg H 2703-7) O2 Sat, Arterial (test code = 99.4 % 96-97 H 2708-6) HCO3, Arterial (test code = 23 mmol/L 21-29 1960-4) Base Excess, Arterial (test code -3.2 mmol/L -2-3 L = 1925-7) Patient Temperature (test code = 36.2 8310-5) FIO2 (test code = 1819) 60 RACIEL (test code = RACIEL) Temp- 36.2C Lab Interpretation (test code = Abnormal 94589-4) [facility] CenterGlucose-Stat [id number] 13:33:00 Test Item Value Reference Range Interpretation Comments Glucose (test code = 2345-7) 184 mg/dL 70-110 H RACIEL (test code = RACIEL) Temp- 36.2C Lab Interpretation (test code = Abnormal 22423-7) [facility] Na[facility]Stat [id number] 13:33:00 Test Item Value Reference Range Interpretation Comments Sodium (test code = 2951-2) 133 meq/L 136-145 L RACIEL (test code = RACIEL) Temp- 36.2C Lab Interpretation (test code = Abnormal 77648-5) [facility] CenterBLOOD GAS, [id number] 13:33:00 Test Item Value Reference Range Interpretation Comments PH ARTERIAL (BEAKER) (test code = 7.34 7.35-7.45 L 383) PCO2 ARTERIAL (BEAKER) (test code 43 mm Hg 35-45 = 384) PO2 ARTERIAL (BEAKER) (test code 211 mm Hg 80-90 H = 385) O2 SATURATION ARTERIAL (BEAKER) 99.4 % 96.0-97.0 H (test code = 386) HCO3 ARTERIAL (BEAKER) (test code 23 mmol/L 21-29 = 388) BASE EXCESS ARTERIAL (BEAKER) -3.2 mmol/L -2.0-3.0 L (test code = 387) PATIENT TEMPERATURE (BEAKER) 36.2 (test code = 1818) FIO2 (BEAKER) (test code = 1819) 60.0 Temp- 36.2CSODIUM NA-STAT [id number] 13:33:00 Test Item Value Reference Range Interpretation Comments SODIUM (BEAKER) (test code = 381) 133 meq/L 136-145 L Temp- 36.2CGLUCOSE-STAT [id number] 13:33:00 Test Item Value Reference Range Interpretation Comments GLUCOSE RANDOM (BEAKER) (test code 184 mg/dL 70-110 H = 652) Temp- 36.2CHGB/HCT (H&H)-Stat [id number] 13:32:00 Test Item Value Reference Range Interpretation Comments Hemoglobin (test code = 786-4) 14.4 12.0- 15.0 GM/DL Hematocrit (test code = 4544-3) 42.0 % 36.0-45.0 RACIEL (test code = RACIEL) Temp- 36.2C Lab Interpretation (test code = Normal 00375-8) [facility] [id number] 13:32:00 Test Item Value Reference Range Interpretation Comments Potassium (test code = 2823-3) 5.1 meq/L 3.6-5.5 RACIEL (test code = RACIEL) Temp- 36.2C Lab Interpretation (test code = Normal 31778-2) [facility] [id number] 13:32:00 Test Item Value Reference Range Interpretation Comments POTASSIUM (BEAKER) (test code = 5.1 meq/L 3.6-5.5 379) Temp- 36.2CHGB/HCT (H&H) - STAT [id number] 13:32:00 Test Item Value Reference Range Interpretation Comments HEMOGLOBIN (BEAKER) (test code = 14.4 GM/DL 12.0-15.0 410) HEMATOCRIT (BEAKER) (test code = 42.0 % 36.0-45.0 411) Temp- 36.2CFL, FLUORO, NON-SPECIFIC, UP TO 1 [id number] 13:19:00Reason for exam:->T9 LAMINOPLASTY ,RESECTION OF INTRADURAL TUMOR,INTRAOPERATIVE ULTRASOUND[facility]: [facility] : 1970 Sex: FFINAL REPORT TECHNIQUE: 1 frontal plain film of the lower thoracic spi ne for localization. FINDINGS: Reference to the CT and MRI performed on 03/08/2020 demonstrates 12 rib-bearing thoracic vertebra and rudimentary ribs on the L1 vertebral body. The lowest fully seen vertebral body level on this exam demonstrates the rudimentary L1 ribs. Therefore, the surgical clamp is at the lateral aspect of the T10 vertebral body. The findings were discussed with Dr. SIMONE HURST's OR who concurred. IMPRESSION: Intraoperative localization plain film as described above. Signed: Chiquis Spangler MDReport Verified Date/Time: 03/20/2020 13:19:27 Reading Location: [facility] Radiology Reading Room [facility] METABOLIC [id number] 07:17:00 Test Item Value Reference Range Interpretation Comments SODIUM (BEAKER) 135 meq/L 136-145 L (test code = 381) POTASSIUM (BEAKER) 4.5 meq/L 3.5-5.1 (test code = 379) CHLORIDE (BEAKER) 101 meq/L 98-107 (test code = 382) CO2 (BEAKER) (test 24 meq/L 22-29 code = 355) BLOOD UREA NITROGEN 18 mg/dL 7-21 (BEAKER) (test code = 354) CREATININE (BEAKER) 0.78 mg/dL 0.57-1.25 (test code = 358) GLUCOSE RANDOM 232 mg/dL 70-105 H (BEAKER) (test code = 652) CALCIUM (BEAKER) 9.9 mg/dL 8.4-10.2 (test code = 697) EGFR (BEAKER) (test 79 mL/min/1.73 ESTIMA NICHELLE GFR IS code = 1092) sq m NOT ACCURATE CREATININE CLEARANCE IN PREDICTING GLOMERULAR FILTRATION RATE . ESTIMATED GFR I S NOT APPLICABLE FOR DIALYSIS PATIEN TS. Purchasing Administrator ID - PIAYA LCBC W/PLT COUNT & AUTO [id number] 06:33:00 Test Item Value Reference Range Interpretation Comments WHITE BLOOD CELL COUNT (BEAKER) 12.9 K/ L 3.5-10.5 H (test code = 775) RED BLOOD CELL COUNT (BEAKER) 4.76 M/ L 3.93-5.22 (test code = 761) HEMOGLOBIN (BEAKER) (test code = 14.2 GM/DL 11.2-15.7 410) HEMATOCRIT (BEAKER) (test code = 44.4 % 34.1-44.9 411) MEAN CORPUSCULAR VOLUME (BEAKER) 93.3 fL 79.4-94.8 (test code = 753) MEAN CORPUSCULAR HEMOGLOBIN 29.8 pg 25.6-32.2 (BEAKER) (test code = 751) MEAN CORPUSCULAR HEMOGLOBIN CONC 32.0 GM/DL 32.2-35.5 L (BEAKER) (test code = 752) RED CELL DISTRIBUTION WIDTH 14.4 % 11.7-14.4 (BEAKER) (test code = 412) PLATELET COUNT (BEAKER) (test 414 K/CU MM 150-450 code = 756) MEAN PLATELET VOLUME (BEAKER) 9.9 fL 9.4-12.3 (test code = 754) NUCLEATED RED BLOOD CELLS 0 /100 WBC 0-0 (BEAKER) (test code = 413) NEUTROPHILS RELATIVE PERCENT 77 % (BEAKER) (test code = 429) LYMPHOCYTES RELATIVE PERCENT 17 % (BEAKER) (test code = 430) MONOCYTES RELATIVE PERCENT 5 % (BEAKER) (test code = 431) EOSINOPHILS RELATIVE PERCENT 0 % (BEAKER) (test code = 432) BASOPHILS RELATIVE PERCENT 0 % (BEAKER) (test code = 437) NEUTROPHILS ABSOLUTE COUNT 10.00 K/ L 1.56-6.13 H (BEAKER) (test code = 670) LYMPHOCYTES ABSOLUTE COUNT 2.22 K/ L 1.18-3.74 (BEAKER) (test code = 414) MONOCYTES ABSOLUTE COUNT (BEAKER) 0.63 K/ L 0.24-0.36 H (test code = 415) EOSINOPHILS ABSOLUTE COUNT 0.00 K/ L 0.04-0.36 L (BEAKER) (test code = 416) BASOPHILS ABSOLUTE COUNT (BEAKER) 0.02 K/ L 0.01-0.08 (test code = 417) IMMATURE GRANULOCYTES-RELATIVE 1 % 0-1 PERCENT (BEAKER) (test code = 2801) POCT-GLUCOSE [id number] 21:33:00 Test Item Value Reference Range Interpretation Comments POC-GLUCOSE METER 319 mg/dL 70-110 H : TESTED A T [facility] 6720 (BEAKER) (test code = [facility] [place], 1538) 43303: Purchasing Administrator/Techni kushal ID = [id number] for ES QUIVEL, RUBIO Screen, [id number] 17:53:00 Test Item Value Reference Range Interpretation Comments Preg Test, Ur (test code = 2112-1) Negative [facility] S[facility], [id number] 17:53:00 Test Item Value Reference Range Interpretation Comments TEST URINE (BEAKER) (test Negative code = 583) POCT-GLUCOSE [id number] 17:31:00 Test Item Value Reference Range Interpretation Comments POC-GLUCOSE METER 311 mg/dL 70-110 H : TESTED A T [facility] 6720 (BEAKER) (test code [facility], = 1538) 01226: Purchasing Administrator/Techni kushal ID = [id number] for LATT LEILANI - MAMTA ALBARADO ECG 12 [id number] 13:53:51Interface, External Ris In - 03/19/2020 1:53 PM CDTVentricular Rate 90 BPMAtrial Rate 90 BPMP-R Interval 148 msQRS Duration 90 msQ-T Interval 346 msQTC Calculation(Bazett) 423 msP [place] 42 degreesR [place] 32 degreesT [place] 36 degreesNormal sinus rhythmNormal ECGNo previous ECGs availableConfirmed by MD Sanjay, [facility] ([id number]) on 03/19/2020 1:53:48 [facility] CenterPO[facility] [id number] 13:06:00 Test Item Value Reference Range Interpretation Comments POC-GLUCOSE METER 207 mg/dL 70-110 H : TESTED A T [facility] 6720 (BEAKER) (test code [facility], = 1538) 12883: Purchasing Administrator/Techni kushal ID = [id number] for LATT LEILANI - PER, MAMTA POCT-GLUCOSE [id number] 08:22:00 Test Item Value Reference Range Interpretation Comments POC-GLUCOSE METER 281 mg/dL 70-110 H : TESTED A T [facility] 6720 (BEAKER) (test code [facility], = 1538) 35117: Purchasing Administrator/Techni kushal ID = [id number] for LATT IMORE - PER, MAMTA BASIC METABOLIC [id number] 07:19:00 Test Item Value Reference Range Interpretation Comments SODIUM (BEAKER) 134 meq/L 136-145 L (test code = 381) POTASSIUM (BEAKER) 4.4 meq/L 3.5-5.1 (test code = 379) CHLORIDE (BEAKER) 101 meq/L 98-107 (test code = 382) CO2 (BEAKER) (test 22 meq/L 22-29 code = 355) BLOOD UREA NITROGEN 17 mg/dL 7-21 (BEAKER) (test code = 354) CREATININE (BEAKER) 0.74 mg/dL 0.57-1.25 (test code = 358) GLUCOSE RANDOM 222 mg/dL 70-105 H (BEAKER) (test code = 652) CALCIUM (BEAKER) 10.2 mg/dL 8.4-10.2 (test code = 697) EGFR (BEAKER) (test 84 mL/min/1.73 ESTIMA NICHELLE GFR IS code = 1092) sq m NOT ACCURATE CREATININE CLEARANCE IN PREDICTING GLOMERULAR FILTRATION RATE . ESTIMATED GFR I S NOT APPLICABLE FOR DIALYSIS PATIEN TS. Purchasing Administrator ID - MARCUS MCBC W/PLT COUNT & AUTO [id number] 07:16:00 Test Item Value Reference Range Interpretation Comments WHITE BLOOD CELL COUNT (BEAKER) 15.9 K/ L 3.5-10.5 H (test code = 775) RED BLOOD CELL COUNT (BEAKER) 4.67 M/ L 3.93-5.22 (test code = 761) HEMOGLOBIN (BEAKER) (test code = 13.8 GM/DL 11.2-15.7 410) HEMATOCRIT (BEAKER) (test code = 42.7 % 34.1-44.9 411) MEAN CORPUSCULAR VOLUME (BEAKER) 91.4 fL 79.4-94.8 (test code = 753) MEAN CORPUSCULAR HEMOGLOBIN 29.6 pg 25.6-32.2 (BEAKER) (test code = 751) MEAN CORPUSCULAR HEMOGLOBIN CONC 32.3 GM/DL 32.2-35.5 (BEAKER) (test code = 752) RED CELL DISTRIBUTION WIDTH 14.2 % 11.7-14.4 (BEAKER) (test code = 412) PLATELET COUNT (BEAKER) (test 403 K/CU MM 150-450 code = 756) MEAN PLATELET VOLUME (BEAKER) 10.1 fL 9.4-12.3 (test code = 754) NUCLEATED RED BLOOD CELLS 0 /100 WBC 0-0 (BEAKER) (test code = 413) NEUTROPHILS RELATIVE PERCENT 85 % (BEAKER) (test code = 429) LYMPHOCYTES RELATIVE PERCENT 11 % (BEAKER) (test code = 430) MONOCYTES RELATIVE PERCENT 4 % (BEAKER) (test code = 431) EOSINOPHILS RELATIVE PERCENT 0 % (BEAKER) (test code = 432) BASOPHILS RELATIVE PERCENT 0 % (BEAKER) (test code = 437) NEUTROPHILS ABSOLUTE COUNT 13.47 K/ L 1.56-6.13 H (BEAKER) (test code = 670) LYMPHOCYTES ABSOLUTE COUNT 1.71 K/ L 1.18-3.74 (BEAKER) (test code = 414) MONOCYTES ABSOLUTE COUNT (BEAKER) 0.60 K/ L 0.24-0.36 H (test code = 415) EOSINOPHILS ABSOLUTE COUNT 0.00 K/ L 0.04-0.36 L (BEAKER) (test code = 416) BASOPHILS ABSOLUTE COUNT (BEAKER) 0.01 K/ L 0.01-0.08 (test code = 417) IMMATURE GRANULOCYTES-RELATIVE 1 % 0-1 PERCENT (BEAKER) (test code = 2801) POCT-GLUCOSE [id number] 00:28:00 Test Item Value Reference Range Interpretation Comments POC-GLUCOSE METER 257 mg/dL 70-110 H : TESTED A T [facility] 6720 (BEAKER) (test code = [facility], 1538) 71830: Purchasing Administrator/Techni kushal ID = [id number] for ES QUIVEL, RUBIO POCT-GLUCOSE [id number] 21:42:00 Test Item Value Reference Range Interpretation Comments POC-GLUCOSE METER 256 mg/dL 70-110 H : TESTED A T [facility] 6720 (BEAKER) (test code = [facility], 1538) 65429: Purchasing Administrator/Techni kushal ID = [id number] for ES QUIVEL, RUBIO POCT-GLUCOSE [id number] 18:14:00 Test Item Value Reference Range Interpretation Comments POC-GLUCOSE METER 301 mg/dL 70-110 H : TESTED A T [facility] 6720 (BEAKER) (test code [facility], = 1538) 95057: Purchasing Administrator/Techni kushal ID = [id number] for MAMTA MATHIAS SARS-CoV2/RT-PCR (Asymptomatic ONLY)2020-03-18 17:51:00 Test Item Value Reference Range Interpretation Comments SARS-COV2/RT-PCR Negative Not Detected, (test code = Negative, See 66809-2) external report for linked test SARS-COV-2 [facility] PERFORMING LAB (test code = 19811-6) RACIEL (test code = Negative result for this RACIEL) test determines that SARS-CoV-2 RNA was not present in the [...] of the Act. Fact Sheet for Healthcare Providers:https://www.[address] [employer].Patient Communicator/sites/default/f cornel/product/documents/F act_Sheet_HC_Providers_L dzx_DUZG-NyH-7.pdf Fact Sheet for Healthcare Patients:https://www.[employer] del.Patient Communicator/sites/default/fi les/product/documents/Fa ct_Sheet_Patients_Lyra_S ARS-CoV-2.pdf Performing Laboratory:[facility] [place] [address] [facility] CenterARS-COV2/[facility]-PCR ([facility])2020-03-18 17:51:00 Test Item Value Reference Range Interpretation Comments SARS-COV2/RT-PCR (test Negative Not Detected, Negative, code = 6785599) See external report for linked test SARS-COV-2 PERFORMING LAB [facility] (test code = 6349487) Negative result for this test determines that SARS-CoV-2 RNA was not present in the specimen above the Limit of Detection (LOD). However, Negative results do not preclude SARS-CoV-2 infection and should not be used as the sole basis for treatment or patient management decisions. Negative results mustbe combined with clinical observations, patient history, and epidemiological information. A false negative result may occur if a specimen is improperly collected, transported or handled. A false negative result should be considered if patient's recent exposures or clinical presentation indicate that COVID-19 (SARS-CoV-2) is likely and diagnostic tests for other causes of illness are negative. Re-testing should be considered in cases of suspected false negatives.The limit of detection for this assay is 800 copies/mL.This SARS CoV-2 test is a real-time RT-PCR test intended for the qualitative detection of nucleic acid from SARS-CoV-2 in a nasopharyngeal swab specimen collected from individuals susp ected of COVID-19 by their healthcare provider.This test has not been Food and Drug [...] is revoked under Section 564(g) of the Act.Fact Sheet for Healthcare Providers:https://www.[employer].Patient Communicator/sites/default/files/product/documents/Fact_Shee t_EQ_Ediogdbfb_Qikz_WRYS-QqM-3.pdfFact Sheet for Healthcare Patients:https://www.[employer].Patient Communicator/sites/default/files/product/ documents/Zlxl_Snpax_Zgodiezo_Nxbz_NOSL-JoD-4.pdfPerforming Laboratory:[facility], [place] [address]CLWFF, manual 2020-03-18 17:15:00 Test Item Value Reference Range Interpretation Comments ABO Grouping (test code = 2588) O Rh Factor (test code = 2589) NEG [facility] CenterType and screen, [id number] 16:45:00 Test Item Value Reference Range Interpretation Comments ABO/RH AUTOMATED (BEAKER) (test O NEGATIVE code = 2260) Ab Scrn (test code = 890-4) NEGATIVE [facility] CenterCT, SPINE, THORACIC, WO [id number] 15:16:00 Unlisted Reason for Exam - Click Yes and Enter Reason Below->YesUnlisted Reason for Exam->rib counting and pre-operative localization [facility] : 1970 Sex: FFINAL REPORT EXAM: CERVICAL SPINE CT WITHOUT CONTRAST CLINICAL INDICAT ION: Unlisted Reason for Examrib counting and pre-operative localization COMPARISON: None TECHNIQUE: Axially oriented 2.5 mm thick images were obtained through the entire thoracic spine, without contrast. Sagittal and coronal reformations are also provided in osseous and soft tissue algorithms. DOSE REDUCTION: Dose modulation, iterative reconstruction, and/or weight-based adjustment of the mA/kV was utilized to reduce the radiation dose to as low as reasonably achievable. FINDINGS:Alignment of the thoracic spine is within normal limits. Vertebral body height is maintained.Mild multilevel disc space height loss.No acute findings within the paraspinal soft tissues. 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 On plant technician/control room operator radiograph, cholecystectomy clips project in the interspace between the 12th and 13th pair of ribs. When comparing to prior lumbar spine MRI localizer image, if vertebrae are numbered top-bottom (beginning at C1), the lesion of interest spans the T9 vertebral level and T9-T10 disc space level. The last (13th) mony of ribs occur at the level designated L1. Signed: Rukhsana Suh Verified Date/Time: 03/18/2020 15:16:56 Reading Location: [address] Neuro Reading Room CT spine thoracic without IV [id number] 15:16:00 Interface, External Ris In - 03/18/2020 3:19 PM CDTFINAL REPORT EXAM: CERVICAL SPINE CT WITHOUT CONTRAST CLINICAL INDICATION: Unlisted Reason for Examrib counting and pre-operative localization COMPARISON: None TECHNIQUE: Axially oriented 2.5 mm thick images were obtained through the entire thoracic spine, without contrast. Sagittal and coronal reformations are also provided in osseous and soft tissue algorithms. DOSE REDUCTION: Dose modulation, iterative reconstruction, and/or weight-based adjustment of the mA/kV was utilized to reduce the radiation dose to as low as reasonably achievable. FINDINGS:Alignment of the thoracic spine is within normal limits. Vertebral bodyheight is maintained.Mild multilevel disc space height loss.No acute findings within the paraspinal soft tissues. 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 On plant technician/control room operator radiograph, cholecystectomy clips project in the interspace between the 12th and 13th pair of ribs. When comparing to prior lumbar spine MRI localizer image, if vertebrae are numbered top-bottom (beginning at C1), the lesion of interest spans the T9 vertebral level and T9-T10 disc space level. The last (13th) mony of ribs occur at the level designated L1. Signed: Rukhsana Suh Verified Date/Time: 03/18/2020 15:16:56 Reading Location: [address] Neuro Reading Room [facility] CenterPOCT-GLUCOSE [id number] 12:05:00 Test Item Value Reference Range Interpretation Comments POC-GLUCOSE METER 281 mg/dL 70-110 H : [facility] (BEAKER) (test code [facility], = 1538) 29170: Purchasing Administrator/Techni kushal ID = [id number] for KENNETH DUKE Thomas PER MAMTA Urinalysis w/[id number] 11:47:00 Test Item Value Reference Range Interpretation Comments Color, UA (test code = Light Yellow 5778-6) Clarity, UA (test code = Hazy 5767-9) Specific [place], UA 1.021 1.001-1.035 (test code = 5811-5) pH, UA (test code = 5.5 5.0-8.0 5803-2) Protein, UA (test code = Negative Negative 39106-3) Glucose, UA (test code = >1000 mg/dL Negative A 365) Ketones, UA (test code = Negative Negative 2514-8) Bilirubin, UA (test code Negative Negative = 58133-4) Blood, UA (test code = Negative Negative 08867-9) Nitrite, UA (test code = Negative Negative 5802-4) Leukocytes, UA (test code Moderate Negative A = 5799-2) Urobilinogen, UA (test 0.2 mg/dL 0.2-1 code = 28603-8) RBC, UA (test code = 1 /HPF 48648-6) WBC, UA (test code = 10 /HPF 5821-4) Bacteria, UA (test code = Occasional 96485-1) Squam Epithel, UA (test 1 /HPF code = 24400-5) Specimen Source (test code = 2795) RACIEL (test code = RACIEL) Purchasing Administrator ID - [auto]Purchasing Administrator ID - tech Lab Interpretation (test Abnormal code = 85908-3) [facility] CenterURINALYSIS W/ [id number] 11:47:00 Test Item Value Reference Range Interpretation Comments COLOR (BEAKER) (test code = 470) Light Yellow CLARITY (BEAKER) (test code = Hazy 469) SPECIFIC GRAVITY UA (BEAKER) 1.021 1.001-1.035 (test code = 468) PH UA (BEAKER) (test code = 467) 5.5 5.0-8.0 PROTEIN UA (BEAKER) (test code = Negative Negative 464) GLUCOSE UA (BEAKER) (test code = >1000 mg/dL Negative A 365) KETONES UA (BEAKER) (test code = Negative Negative 371) BILIRUBIN UA (BEAKER) (test code Negative Negative = 462) BLOOD UA (BEAKER) (test code = Negative Negative 461) NITRITE UA (BEAKER) (test code = Negative Negative 465) LEUKOCYTE ESTERASE UA (BEAKER) Moderate Negative A (test code = 466) UROBILINOGEN UA (BEAKER) (test 0.2 mg/dL 0.2-1.0 code = 463) RBC UA (BEAKER) (test code = 1 /HPF 519) WBC UA (BEAKER) (test code = 10 /HPF 520) BACTERIA (BEAKER) (test code = Occasional 517) SQUAMOUS EPITHELIAL (BEAKER) 1 /HPF (test code = 516) SOURCE(BEAKER) (test code = 2795) Purchasing Administrator ID - [auto]Purchasing Administrator ID - techRAD, CHEST, 1 VIEW, NON [id number] 08:17:00Reason for exam:->lower extremity edema evaluate volume statusShould this be performed at the bedside?->YesFINAL REPORT CLINICAL HISTORY: lower extremity edema evaluate volume status TECHNIQUE: 1 view of the chest. COMPARISON: None IMPRESSION: There is pulmonary vascular congestion with prominence of the interstitial lung markings bilaterally. There is no lobar consolidation or significant pleural fluid. The cardiomediastinal silhouette is magnified by technique. Signed: Chiquis Spangler MDReport Verified Date/Time: 03/18/2020 08:17:48 Reading Location: [facility] XR chest 1 view portable / [id number] 08:17:00Interface, External Ris In - 03/18/2020 8:19 AM CDTFINAL REPORT CLINICAL HIST ORY: lower extremity edema evaluate volume status TECHNIQUE: 1 view of the chest. COMPARISON: None IMPRESSION: There is pulmonary vascular congestion with prominence of the interstitial lung markings bilaterally. There is no lobar consolidation or significant pleural fluid. The cardiomediastinal silhouette is magnified by technique. Signed: Chiquis Spangler MDReport Verified Date/Time: 03/18/2020 08:17:48 Reading Location: [facility] Radiology Reading [facility]2020-03-18 06:24:00 Test Item Value Reference Range Interpretation Comments BNP (test code = 92702-3) <10 0-100 RACIEL (test code = RACIEL) Purchasing Administrator ID - MARCUS Haddad Lab Interpretation (test Normal code = 62076-8) [facility]2020-03-18 06:24:00 Test Item Value Reference Range Interpretation Comments B-TYPE NATRIURETIC PEPTIDE (BEAKER) < pg/mL 0-100 (test code = 700) Purchasing Administrator ID - MARCUS MMR, SPINE, THORACIC, [id number] 04:02:00Unlisted Reason for Exam - Click Yes and Enter Reason Below->YesUnlisted Reason for Exam->thoracic tumor, neurologic deficitDeos the patient have an implanted electronic device?->NoFINAL REPORT MR, SPINE, THORACIC, WITH \T\ WITHOUT CONTRAST CLINICAL INDICATION: Unlisted Reason for Exam. Presurgical eval, T-spine. T-spine canal stenosis. thoracic tumor, neurologic deficit COMPARISON: None TECHNIQUE: Multiplanar multi sequential MRI of the thoracic spine was performed with and without intravenous contrast. FINDINGS: There is a 1.9 x 1.1 x 1.4 cm leftintradural, extramedullary mass at the level of T9. The lesion is T1 hypointense, mildly T2 hyperintense and enhances homogeneously. There is displacement of the spinal cord to the right with cord compression. There is no definite cord edema although evaluation is limited due to motion artifact. The visualized spinal cord is normal size and signal. The cauda equina is located at L1. Vertebral body heights and alignment are maintained. There are multilevel intraosseous hemangiomas. The intervertebraldisc space heights are preserved. There is mild multilevel spinal canal and neural foraminal stenosis due to ligamentous and facet hypertrophy. The prevertebral and paraspinal soft tissues are unremarkable. 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 Discussed with Dr. Hua there are surgery at 3:58 AM 03/18/2020. Signed: Elisa Armijo Verified Date/Time: 03/18/2020 04:02:06 MR thoracic spine without & with IV [id number] 04:02:00 Interface, External Ris In - 03/18/2020 4:04 AM CDTFINAL REPORT MR, SPINE,THORACIC, WITH \T\ WITHOUT CONTRAST CLINICAL INDICATION: Unlisted Reason for Exam. Presurgical eval, T-spine. T-spine canal stenosis. thoracic tumor, neurologic deficit COMPARISON: None TECHNIQUE: Multiplanar multi sequential MRI of the thoracic spine was performed with and without intravenous contrast. FINDINGS: There is a 1.9 x 1.1 x 1.4 cm left intradural, extramedullary mass at the level of T9. The lesion is T1 hypointense, mildly T2 hyperintense and enhances homogeneously. There is displacement of the spinal cord to the right with cord compression. There is no definite cord edema althoughevaluation is limited due to motion artifact. The visualized spinal cord is normal size and signal. The cauda equina is located at L1. Vertebral body heights and alignment are maintained. There are multilevel intraosseous hemangiomas. The intervertebral disc space heights are preserved. There is mild multilevel spinal canal and neural foraminal stenosis due to ligamentous and facet hypertrophy. The prevertebral and paraspinal soft tissues are unremarkable. 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 Discussed with Dr. Hua there are surgery at 3:58 AM 03/18/2020. Signed: Elisa Armijo Verified Date/Time: 03/18/2020 04:02:06 [facility] 2020-03-18 02:41:00 Test Item Value Reference Range Interpretation Comments Protime (test code = 12.8 11.9- 14.2 5902-2) seconds INR (test code = 0.99 <=5.90 6301-6) PTT (test code = 30.9 22.5- 36.0 14721-5) seconds RACIEL (test code = RACIEL) Effective 10/31/2018: PT Reference Range ChangeNew: 11.9-14.2 Previous: 11.7-14.7 RECOMMENDED COUMADIN/WARFARIN INR THERAPY RANGESSTANDARD DOSE: 2.0-3.0 Includes: PROPHYLAXIS for venous thrombosis, systemic embolization; TREATMENT for venous thrombosis and/or pulmonary embolus.HIGH RISK: Target INR is 2.5-3.5 for patients wiht mechanical heart valves. Lab Interpretation Normal (test code = 59486-3) [facility][id number] 02:41:00 Test Item Value Reference Range Interpretation Comments PROTIME (BEAKER) (test code = 12.8 seconds 11.9-14.2 759) INR (BEAKER) (test code = 370) 0.99 <=5.90 PARTIAL THROMBOPLASTIN TIME 30.9 seconds 22.5-36.0 (BEAKER) (test code = 760) Effective 10/31/2018: PT Reference Range ChangeNew: 11.9-14.2 Previous: 11.7- 14.7RECOMMENDED COUMADIN/WARFARIN INR THERAPY RANGESSTANDARD DOSE: 2.0-3.0 Includes: PROPHYLAXIS for venous thrombosis, systemic embolization; TREATMENT for venous thrombosis and/or pulmonary embolus.HIGH RISK: Target INR is2.5-3.5 for patients wiht mechanical heart valves.Manual [id number] 02:01:00 Test Item Value Reference Range Interpretation Comments % Neutros (test code = 62 % 2816) % Lymphs (test code = 29 % 2817) % Monos (test code = 2 % 2818) % Eos (test code = 2819) 2 % % Baso (test code = 2820) 1 % % Bands (test code = 1 % 0-10 2826) % Atypical Lymphs (test 3 % 0-0 H code = 2829) # Neutros (test code = 10.42 K/ul 1.56-6.13 H 2830) # Lymphs (test code = 4.87 K/ul 1.18-3.74 H 2831) # Monos (test code = 0.34 K/uL 0.24-0.36 2832) # Eos (test code = 2834) 0.34 K/uL 0.04-0.36 # Baso (test code = 2835) 0.17 K/uL 0.01-0.08 H # Bands (test code = 0.17 K/uL 0-0.8 2840) # Atypical Lymphs (test 0.50 K/uL 0-0 H code = 2858) Total Counted (test code 100 = 1351) RBC Morphology (test code Normal = 762) Platelet Morphology (test Normal code = 486) Smudge Cells (test code = Present 1371) Platelet Conc (test code Adequate = 3438) RACIEL (test code = RACIEL) Purchasing Administrator ID - Ana KillianSaqib comments: Slide comments: RBC: RBC Morphology normal. Lab Interpretation (test Abnormal code = 93544-3) [facility] W/PLT COUNT & AUTO [id number] 02:01:00 Test Item Value Reference Range Interpretation Comments WHITE BLOOD CELL COUNT (BEAKER) 16.8 K/ L 3.5-10.5 H (test code = 775) RED BLOOD CELL COUNT (BEAKER) 4.96 M/ L 3.93-5.22 (test code = 761) HEMOGLOBIN (BEAKER) (test code = 15.0 GM/DL 11.2-15.7 410) HEMATOCRIT (BEAKER) (test code = 45.9 % 34.1-44.9 H 411) MEAN CORPUSCULAR VOLUME (BEAKER) 92.5 fL 79.4-94.8 (test code = 753) MEAN CORPUSCULAR HEMOGLOBIN 30.2 pg 25.6-32.2 (BEAKER) (test code = 751) MEAN CORPUSCULAR HEMOGLOBIN CONC 32.7 GM/DL 32.2-35.5 (BEAKER) (test code = 752) RED CELL DISTRIBUTION WIDTH 14.6 % 11.7-14.4 H (BEAKER) (test code = 412) PLATELET COUNT (BEAKER) (test 419 K/CU MM 150-450 code = 756) MEAN PLATELET VOLUME (BEAKER) 9.6 fL 9.4-12.3 (test code = 754) NUCLEATED RED BLOOD CELLS 0 /100 WBC 0-0 (BEAKER) (test code = 413) (CELLAVISION MANUAL DIFF)2020-03-18 02:01:00 Test Item Value Reference Range Interpretation Comments NEUTROPHILS - REL 62 % (CELLAVISION)(BEAKER) (test code = 2816) LYMPHOCYTES - REL 29 % (CELLAVISION)(BEAKER) (test code = 2817) MONOCYTES - REL 2 % (CELLAVISION)(BEAKER) (test code = 2818) EOSINOPHILS - REL 2 % (CELLAVISION)(BEAKER) (test code = 2819) BASOPHILS - REL 1 % (CELLAVISION)(BEAKER) (test code = 2820) BANDS - REL (CELLAVISION)(BEAKER) 1 % 0-10 (test code = 2826) ATYPICAL LYMPHOCYTES - REL 3 % 0-0 H (CELLAVISION)(BEAKER) (test code = 2829) NEUTROPHILS - ABS 10.42 K/ul 1.56-6.13 H (CELLAVISION)(BEAKER) (test code = 2830) LYMPHOCYTES - ABS 4.87 K/ul 1.18-3.74 H (CELLAVISION)(BEAKER) (test code = 2831) MONOCYTES - ABS 0.34 K/uL 0.24-0.36 (CELLAVISION)(BEAKER) (test code = 2832) EOSINOPHILS - ABS 0.34 K/uL 0.04-0.36 (CELLAVISION)(BEAKER) (test code = 2834) BASOPHILS - ABS 0.17 K/uL 0.01-0.08 H (CELLAVISION)(BEAKER) (test code = 2835) BANDS - ABS (CELLAVISION)(BEAKER) 0.17 K/uL 0.00-0.80 (test code = 2840) ATYPICAL LYMPHOCYTES - ABS 0.50 K/uL 0.00-0.00 H (CELLAVISION)(BEAKER) (test code = 2858) TOTAL COUNTED (BEAKER) (test code 100 = 1351) RBC MORPHOLOGY (BEAKER) (test code Normal = 762) PLT MORPHOLOGY (BEAKER) (test code Normal = 486) SMUDGE CELLS (BEAKER) (test code = Present 1371) PLATELET CONCENTRATION Adequate (CELLAVISION)(BEAKER) (test code = 3438) Purchasing Administrator ID - Ana Zabala comments: Slide comments: RBC: RBC Morphology normal.BASIC METABOLIC [id number] 00:19:00 Test Item Value Reference Range Interpretation Comments SODIUM (BEAKER) 134 meq/L 136-145 L (test code = 381) POTASSIUM (BEAKER) 3.7 meq/L 3.5-5.1 (test code = 379) CHLORIDE (BEAKER) 100 meq/L 98-107 (test code = 382) CO2 (BEAKER) (test 22 meq/L 22-29 code = 355) BLOOD UREA NITROGEN 18 mg/dL 7-21 (BEAKER) (test code = 354) CREATININE (BEAKER) 0.76 mg/dL 0.57-1.25 (test code = 358) GLUCOSE RANDOM 138 mg/dL 70-105 H (BEAKER) (test code = 652) CALCIUM (BEAKER) 10.3 mg/dL 8.4-10.2 H (test code = 697) EGFR (BEAKER) (test 81 mL/min/1.73 ESTIMA NICHELLE GFR IS code = 1092) sq m NOT ACCURATE CREATININE CLEARANCE IN PREDICTING GLOMERULAR FILTRATION RATE . ESTIMATED GFR I S NOT APPLICABLE FOR DIALYSIS PATIEN TS. Purchasing Administrator ID - BS
--- OUTSIDE RECORDS SUMMARY | 2020-03-24 19:29 | XMS REPORT ---
:1970 Author Organization [facility] Address [address] [place] [address] Care Team Providers Name Role Phone Millender Unavailable [phone] PROBLEMS Type Condition ICD9-CM IWV68-YL Onset Condition SNOMED Code Notes Code Code Dates Status Problem Hepatitis K75.9 Active 887124216 Problem Gallstones K80.20 Active 838544780 Problem Seasonal J30.2 Active 539682925 allergies Problem Reflux K21.9 Active 640107232 Problem Leukocytosis, D72.829 Active 847143642 unspecified type Problem Tobacco use Z72.0 Active 653577954 Problem Body mass index Z68.41 Active 711261210 (BMI) of 40.0-44.9 in adult Problem Sinus problem J34.9 Active Problem Gastroesophageal K21.9 Active 193009451 reflux disease without esophagitis Problem Hyperlipidemia, E78.5 Active 26381434 unspecified hyperlipidemia type Problem History of Z86.19 Active 116008493 hepatitis B virus infection Problem Uncontrolled type E11.65 Active 811926669 2 diabetes mellitus with hyperglycemia Problem Encounter for Z71.6 Active 982238791 tobacco use cessation counseling Problem Depression Z13.31 Active 852134562 screening Problem Onychomycosis B35.1 Active 892977513 Located at toenails of both feet. Problem Hypercalcemia E83.52 Active 33516017 Problem Paresthesia of R20.2 Active 388537796 foot, bilateral Problem Pain in right leg M79.604 Active 99271493950025 108 Problem Anxiety F41.9 Active 30201030 Problem Paresthesias R20.2 Active 32133997 Located at distal BLEs, as well as at bilateral groin. Problem Morbid obesity E66.01 Active 124667359 Problem Diabetes E11.9 Active 455238784 Problem Mixed E78.2 Active 506960886 hyperlipidemia Problem Acute lower N39.0 Active 669730353 urinary tract infection Problem Status post fall Z91.81 Active 387462546 In 2019. Problem Pain in left leg M79.605 Active 989880607 ALLERGIES Allergen (clinical Drug/Non Drug Reaction Allergy Type Onset Date S tatus drug ingredient) Allergy documented on EMR indomethacin Indocin([facility] nausea and Drug Allergy Active Code:[address]-41) vomiting Nicotine rash Drug Allergy Active tetracycline tetracycline nausea and Drug Allergy Active vomiting ENCOUNTERS from 1972 to 2020-03-02 Encounter Location Date Provider Diagnosis [facility] [address] [place] [facility] [place] [address] IMMUNIZATIONS No Information SOCIAL HISTORY Tobacco Use: Social History Observation Description Date Details (start date - stop date) Current Smoker Sex Assigned At : Social History Observation Description Sex Assigned At Unknown Alcohol Screen Question Answer Notes Did you have a drink containing alcohol in the past year? Ye s Points 0 Interpretation Negative Tobacco Use/Smoking Question Answer Notes Are you a current smoker REASON FOR REFERRAL No Information VITAL SIGNS No information MEDICATIONS Medication SIG (Take, Route, Start Date End Date Status Frequency, Duration) Victoza 18 MG/3ML as directed Subcutaneous Sep, 1 Active 1.8 mg once daily for 90 days Lisinopril 5 MG 1 tablet Orally Once a day Active for 90 days Jardiance 10 MG 1 tablet Orally Once a day Dec,Apr, 0 Active for diabetes for 30 day(s) Gemfibrozil 600 MG 1 tablet 30 minutes before Active morning and evening meals Orally Twice a day for high triglycerides for 90 days FreeStyle Noah 14 Day as directed subcutaneous Active [place] - Test BS once daily and prn for 90 FreeStyle Noah [place] - as directed subcutaneous Aug, Active Test BS once daily and prn Lamisil 250 MG 1 tablet Orally Once a day Mar, Active for 90 days Januvia 100 MG 1 tablet Orally once a day Dec, Active for 90 days Metformin HCl 1000 MG 1 tablet with a meal Dec, Active Orally twice a day for 90 days FreeStyle Noah 14 Day USE DIRECTED ONCE DAILY May, Active Sensor - AND NEEDED 84 DAYS for 90 days [facility] 32G X 6 MM as directed subcutaneous Active as directed for use with Victoza Pen for 90 days Janumet XR 100-1000 MG take 1 tablet by mouth Active twice daily with meals for 90 days Orally twice a day for 90 days Fluoxetine 10 MG 1 capsule Orally Once a Active day Gabapentin 100 MG 1-3 capsules as needed for Jun, Active pain Orally Twice daily for 90 days atorvastatin 20mg 1 tablet by mouth at Sep, Ac tive bedtime Orally Once daily for 90 days Fluoxetine HCl 10 MG 1 capsule Orally Once a Active day for 90 days PROCEDURES No Information RESULTS No Results REASON FOR VISIT FYI only MEDICAL (GENERAL) HISTORY Type Description Date Medical History Seasonal allergies Medical History Gallstones Medical History Reflux Medical History Anxiety Medical History Diabetes Medical History Hepatitis Medical History Sinus problem Surgical History Lymph nodes removed 1977 Surgical History [place] teeth removed 1986 Surgical History Nose 1989 Surgical History Left hand 2000 Surgical History Gallbladder 2002 Surgical History Right foot 2004 Surgical History 2008 Goals Section No Information Health Concerns No Information MEDICAL EQUIPMENT No Information MENTAL STATUS No Information FUNCTIONAL STATUS No Information ASSESSMENTS No Information PLAN OF TREATMENT Medication Medication Name Sig Start Date Stop Date Lamisil 250 MG 1 tablet Orally Once a day for 90 Mar, days Gabapentin 100 MG 1-3 capsules as needed for pain Jun, Orally Twice daily for 90 days atorvastatin 20mg 1 tablet by mouth at bedtime Orally Sep, Once daily for 90 days Victoza 18 MG/3ML as directed Subcutaneous 1.8 mg once Sep, daily for 90 days Gemfibrozil 600 MG 1 tablet 30 minutes before morning and evening meals Orally Twice a day for high triglycerides for 90 days Lisinopril 5 MG 1 tablet Orally Once a day for 90 days Fluoxetine HCl 10 MG 1 capsule Orally Once a day for 90 days Jardiance 10 MG 1 tablet Orally Once a day for Dec,Apr, diabetes for 30 day(s) Janumet XR 100-1000 MG take 1 tablet by mouth twice daily with meals for 90 days Orally twice a day for 90 days Januvia 100 MG 1 tablet Orally once a day for 90 Dec, days Metformin HCl 1000 MG 1 tablet with a meal Orally twice a Dec day for 90 days Insurance Providers Payer Name Payer Address Payer Insured Patient Coverage Cover age Phone Name Relationship to Start Date End Date Insured [employer] [phone] Smith self [facility] [id number]
[2020-03-24] MEDS ORDERED: DOCUSATE NA/SENNA CONC 1 TAB PO PRN (20:02)
[2020-03-24] MEDS: ATORVASTATIN 20 MG TAB PO SCH (20:23)
[2020-03-24] MEDS: APIXABAN 2.5 MG TABLET PO SCH (20:23)
[2020-03-24] MEDS: FLUOXETINE 10 MG CAP PO SCH (20:23)
[2020-03-24] MEDS: HYDROCODONE/APAP 5/325 MG TAB PO PRN (20:23)
[2020-03-24] MEDS ORDERED: D50W 25 GM/50 ML SYRINGE/VIAL IV PRN (23:27)
[2020-03-24] MEDS ORDERED: GLUCAGON 1 MG/VIAL IM PRN (23:27)
[2020-03-25 06:47] LABS: Albumin 2.9 g/dL (3.4-5.0); Magnesium 2.2 mg/dL (1.8-2.4); Potassium 3.8 mmol/L (3.5-5.1); Prealbumin 36.6 mg/dL (20-40)
[2020-03-25 06:52] LABS: Absolute Lymphocytes (CBC) 4.7 K/uL (0.7-4.9); Basophils % 0.5 % (0-1.3); Hematocrit 45.1 % (36.0-45.0); Lymphocytes % 34.9 % (15.3-44.8); RBC Red Blood Cell Count 4.93 M/uL (3.86-4.86)
[2020-03-25] MEDS: INSULIN -REGULAR HUMAN 50 UNIT/0.5 ML ML SQ SCH ×4 (07:30→20:08)
[2020-03-25] MEDS: terbinafine HCL 250 MG TAB PO SCH ×3 (08:00→20:08)
[2020-03-25] MEDS: NICOTINE 21 MG/PAT TD SCH (08:41)
[2020-03-25] MEDS: METFORMIN HCL 500 MG TAB PO SCH ×2 (08:45→16:45)
[2020-03-25] MEDS: FENOFIBRATE 160 MG TAB PO SCH (08:45)
[2020-03-25] MEDS: APIXABAN 2.5 MG TABLET PO SCH ×2 (08:46→20:08)
[2020-03-25] MEDS: VITAMIN D 5,000 UNIT CAP PO SCH (08:46)
[2020-03-25] MEDS: HYDROCODONE/APAP 5/325 MG TAB PO PRN ×3 (09:00→20:12)
--- NOTE | 2020-03-25 17:36 | R.HP ---
HISTORY AND PHYSICAL FACILITY: [facility] ENCOUNTER DATE AND TIME: 03/25/2020 17:30 (CDT) MR#: [id number] NAME NICOLAS LAGUNA ADDRESS: [address] [place] [address] CITY: [place] [address]IP [address] PHONE: DATE OF : 1970 AGE: 50 SSN# [id number] GENDER: Female DEXTERITY Right-handed MARITAL STATUS RACE Unknown race PRE-HOSPITAL LIVING SETTING 01 - Home (private home/apt. board/care, assisted living, fci, transitional living) PRE-HOSPITAL LIVING WITH Alone ENCOUNTER PHYSICIAN: Dr. Erick Bosch M.D. 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 is a 50 yo Right-handed female of unknown race. 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 Her impairment category is Spinal Cord Dysfunction 04 - Paraplegia, Unspecified (04.110). Pre-morbidly, Pt. was independent/mod-I in Locomotion, Balance, Safety Awareness, Transfers Control, Self-Care, and Communication; and she had good Endurance and Social Cognition. Currently, she has deficits of Locomotion, Balance, Transfers Control, Sphincter Control, and Enduran ce. Pt. is now referred to [facility] for acute in-patient rehabilitation in order to maximize patient's functional independence in activities of daily living, strength, ROM, and mobi lity. Patient has realistic goal of being discharged at assistance level 7-Ind to reside at Home with Pt s elf. MEDICATION ALLERGIES: INDOCIN TETRACYCLINES ENVIRONMENTAL ALLERGIES: - Substance Allergies None Known - Other Allergies None Known PAST MEDICAL HISTORY: DIABETES MELLITUS PAST SURGICAL HISTORY: CARPAL TUNNEL RELEASE SECTION CHOLECYSTECTOMY HAND SURGERY LAMINOPLASTY, CERVICAL RESECTION OF INTRADURAL TUMOR LYMPHADENECTOMY PROCEDURE W INTRAOPERATIVE NEUROMONTORING PRO W OPERATING MICROSCOPE PROCEDURE W C-ARM RHINOPLASTY ULTRASOUND GUIDANCE SOCIAL HISTORY: - Home Living Alone REVIEW OF SYSTEMS: - Gen No Chills Fatigue No Fever - Eyes No Double Vision No itchiness - ENMT No Difficulty Swallowing - CVS No Chest Discomfort No Chest Pain Fatigue No Weight Gain - Resp No Cough No Shortness of Breath - GI Continent No Abdominal Pain No Constipation No Diarrhea - Continent No Kidney Pain No Painful Urination No Urinary Urgency - MSK Joint Pain Muscle Cramps Stiffness - Skin No Itching No Rash No Suspicious Lesions - Neuro Coordination Difficulty No Difficulty with Concentration No Memory Loss No Seizures Weakness - Psych No Anxiety No Depression No HIV Exposure No Persistent Infections No Seasonal Allergies - Endo No Cold/Heat Intolerance No Excessive Hunger No Excessive Thirst No Excessive Urination PHYSICAL EXAM - Gen Alert and awake Lying in bed No apparent distress Oriented to: person, time, and place - Skin Thoracic spinal incision is healing well. No abnormalities - Eyes No abnormalities - ENMT No abnormalities - Neck No abnormalities - CVS RRR - Chest No abnormalities - Resp Clear to auscultation - Abd + bowel sounds - GI nondistended Deferred - No abnormalities - Ext Mild bilateral lower extremity edema. - MSK 4+/5 weakness in both lower extremities. - Neuro 4/5 strength bilaterally lower extremities. - Psych No abnormalities VITAL SIGNS Temperature: 97.4 F SBP/DBP: 114/68 Pulse: 67 Resp: 16 NURSING: - Shower allowing shower - Lab Results blood Sugar Check ACHS - Bladder care per protocol - Skin care per protocol PRECAUTIONS: - Weight Bearing Precaution WBAT both LE ACTIVITIES OOB only with supervision QI SCORES: - Self-Care A. Eating 03-Partial/moderate assistance B. Oral hygiene 03-Partial/moderate assistance C. Toileting hygiene 03-Partial/moderate assistance E. Shower/bathe self 03-Partial/moderate assistance F. Upper body dressing 03-Partial/moderate assistance G. Lower body dressing 03-Partial/moderate assistance H. Putting on/taking off footwear 88-Not attempted due to medical condition or safety concerns - Mobility A. Roll left and right 03-Partial/moderate assistance B. Sit to lying 03-Partial/moderate assistance C. Lying to sitting on side of bed 03-Partial/moderate assistance D. Sit to stand 03-Partial/moderate assistance E. Chair/chi-iw-qitsu transfer 03-Partial/moderate assistance F. Toilet transfer 03-Partial/moderate assistance G. Car transfer 88-Not attempted due to medical condition or safety concerns I. Walk 10 feet 88-Not attempted due to medical condition or safety concerns J. Walk 50 feet with two turns 88-Not attempted due to medical condition or safety concerns K. Walk 150 feet 88-Not attempted due to medical condition or safety concerns L. Walking 10 feet on uneven surfaces 88-Not attempted due to medical condition or safety concerns M. 1 step (curb) 88-Not attempted due to medical condition or safety concerns N. 4 steps 88-Not attempted due to medical condition or safety concerns O. 12 steps 88-Not attempted due to medical condition or safety concerns P. Picking up object 88-Not attempted due to medical condition or safety concerns R. Wheel 50 feet with two turns 88-Not attempted due to medical condition or safety concerns S. Wheel 150 feet 88-Not attempted due to medical condition or safety concerns - Bladder and Bowel Bladder continence Bowel continence - Endurance Fair - Balance Fair - Safety Awareness Fair CURRENT FUNC. DEFICITS: Self-Care, Mobility, Endurance, Balance, and Safety Awareness MEDICATIONS: - Other See attached MAR (Medication Administration Record) ASSESSMENT: Pt. is a 50 yo Right-handed female of unknown race.On 03/17/2020 she was admitted to [facility] with diagnosis BEGNIGN NEOPLASM OF THE SPINAL MENINGES.Her impairment category is Spinal Cord Dysfun ction 04 - Paraplegia, Unspecified (04.110).Pre-morbidly, Pt. was independent/mod-I in Locomotion, B alance, Safety Awareness, Transfers Control, Self-Care, and Communication; and she had good Endurance and Social Cognition.Currently, she has deficits of Locomotion, Balance, Transfers Control, Sphincte r Control, and Endurance.Pt. is now referred to [facility] for acute in-patien t rehabilitation in order to maximize patient's functional independence in activities of daily living , strength, ROM, and mobility.- Rehab Goal Patient has realistic goal of being discharged at assistance level 7-Ind to reside at Home with Pt s elf. REHAB PLAN: - Physical Therapy Gait dysfunction - to improve, our physical therapists will perform initial evaluation of pt's status upon admission and devise an individualized program for Gait Training, and Wheel Chair mobility Inability to transfer - to improve, our physical therapists will perform initial evaluation of pt's s tatus upon admission and devise an individualized program for Bed mobility Need for home safety evaluation - to improve, our physical therapists will perform initial evaluation of pt's status upon admission and devise an individualized program for Home Evaluation Need in caregiver upon discharge - to improve, our physical therapists will perform initial evaluatio n of pt's status upon admission and devise an individualized program for Caregiver Training New precaution - to improve, our physical therapists will perform initial evaluation of pt's status u car admission and devise an individualized program for Patient precaution education Edema - to improve, our physical therapists will perform initial evaluation of pt's status upon admi ssion and devise an individualized program for Elevation Training, and Lymphedema Therapy Poor balance - to improve, our physical therapists will perform initial evaluation of pt's status upo n admission and devise an individualized program for Balance Training Poor endurance - to improve, our physical therapists will perform initial evaluation of pt's status u car admission and devise an individualized program for Endurance Training Weakness - to improve, our physical therapists will perform initial evaluation of pt's status upon ad mission and devise an individualized program for Aquatic Therapy, Neuromuscular Reeducation, and Stre ngthening Achieving independence - to improve, our physical therapists will perform initial evaluation of pt's status upon admission and devise an individualized program for Community Reintegration Activities - Occupational Therapy Need for physician assistant primary care - to improve, our occupation therapists will perform initial evaluation of pt's s tatus upon admission and devise an individualized program for Caregiver Training Weakness - to improve, our occupation therapists will perform initial evaluation of pt's status upon admission and devise an individualized program for Aquatic Therapy, Balance, Endurance, UE ROM, and U E strengthening MEDICAL PLAN: - Diet Type Start Regular - Diet - Liquid Texture Start Regular - Tube Feed Start N/A - Lab Results blood Sugar Check ACHS - Bladder care per protocol - Weight Bearing Precaution WBAT both LE - Skin care per protocol - Other See attached MAR (Medication Administration Record) - Diet - Solid Texture Regular - Shower shower DISCHARGE PLAN: - Estimated Length of Stay (days) 16. - Consensus on plan Discharge plan has been discussed with primary caregiver. Patient/Family is in agreement with the micky n. Primary caregiver is in agreement with the plan. - Patient/Family Goals Return home independently. - Planned Living Setting Upon Discharge Home, to live alone. Transitional Living. Primary caregiver: Pt self. SIGNATURE PANEL: (CDT)
--- NOTE | 2020-03-25 17:38 | PAPE ---
POST ADMISSION PHYSICIAN EVALUATION PATIENT: [facility] MR# [id number] REFERRING DOCTOR ISRAEL ZAVALA MD EVALUATION DATE AND TIME 03/25/2020 17:36 (CDT) NAME NICOLAS LAGUNA DATE OF 1970 AGE 50 PHONE N# [id number] GENDER female EVALUATING PHYSICIAN Dr. Erick Bosch M.D. ADMISSION DIAGNOSIS: BEGNIGN NEOPLASM OF THE SPINAL MENINGES ONSET DATE 03/17/2020 SECONDARY/COMORBID DIAGNOSES TIERED: - Tier 3 Type 2 diabetes mellitus with diabetic polyneuropathy (E11.42) POST-ADMISSION FUNCTIONAL/MEDICAL STATUS: - Bladder Same accident frequency: Ind - No accidents in the past 7 days - Bowel Same accident frequency: Ind - No accidents in the past 7 days - Walking Same score based on distance walked: 0(N/A) - Wheelchair Same score based on distance traveled: 0(N/A) STATUS CHANGE EVALUATION: No change in Functional or Medical Status is identified compared with Pre-Admission screening. PATIENT NEEDS CLOSE MEDICAL SUPERVISION BY A REHABILITATION PHYSICIAN FOR: Coordination of Treatment Team Diabetes Management Medical and Co-Morbidity Management PATIENT REQUIRES 24X7 REHAB NURSING FOR MEDICAL AND FUNCTIONAL MGT. OF THE FOLLOWING DEFICITS: Disease Management Medication Management Patient/Family Education Providing Safe Environment PATIENT REQUIRES INTENSIVE, COORDINATED INTERDISCIPLINARY APPROACH TO REHAB: Arranging Home Equipment/Services Discharge Planning Family Intervention/Training Cupola Hoist Operator/Case Management LIST OF IDENTIFIED AND POTENTIAL PROBLEMS: Alteration in leisure activities Bladder, Incontinence Bowel, Incontinence Diabetes, Hyperglycemia/hypoglycemia Issues Infection, Actual or Potential Mobility Impaired Pain, Alteration in Comfort Self Care Deficit Skin Integrity, Actual or Potential Urinary Tract Infection (UTI), Actual or Potential PATIENT COULD BE AT RISK FOR COMPLICATIONS FROM ADVERSE MEDICAL CONDITIONS DUE TO HIS/HER COMORBIDITI ES AND THE RIGORS OF THE INTENSIVE REHABILLITATION PROGRAM. METHODS OR INTERVENTIONS TO AVOID COMPLIC ATIONS INCLUDE: - Infection Clinical staff to assess and manage the signs and symptoms of infection including fever, redness, war mth, etc. - Urinary Tract Infection - Falls Patient will be evaluated for Fall Precautions and will be placed on Fall Precautions as indicated pe r protocol. - Skin Breakdown Nursing will assess skin daily using assessment tool and will place on Skin Breakdown Precautions as indicated per protocol. - Pain Clinical staff may employ non-medication methods such as massage, distraction, decrease stimulus, etc . as needed. Clinical staff will assess patient's pain level every shift per protocol to assess and e nsure pain management effectiveness. Medications will be given and the pain level re-assessed. PRELIMINARY PLAN OF CARE: - Physical Therapy Patient needs Physical Therapy for a daily minimum of 1.5 hours at least 5 out of 7 days, to improve: Mobility, Strengthening, Transfers, Stretching, ROM, Endurance, Ability to manage stairs, Gait, and Balance. - Rehabilitation Nursing Patient requires 24x7 Rehabilitation Nursing for: Pain Issues, Identifying and preventing risk factor s, Monitoring and reporting current medical conditions, Assisting with ambulation and transfer, Shane ting with all ADL-s, Teaching patients about disease process and medications, Family teaching, Provid ing safe environment, Bowel and Bladder Issues, Skin Integrity, and Medication Management. Patient needs Cupola Hoist Operator and/or Case Management for: Discharge Planning, Arranging Home Equipmen t or Services, and Family Interventions. - Dietary and Nutrition Services Patient needs Dietary and Nutrition Services for: Adequate Nutrition, Nutritional Supplements, and Nu tritional Education. - Occupational Therapy Patient needs Occupational Therapy for a daily minimum of 1.5 hours at least 5 out of 7 days, to impr ove Activities of Daily Living, including: Eating, Grooming, Bathing, Dressing, Toileting, Toilet Tra nsfers, Community Reintegration, Higher functional activities, Adaptive Equipment, Splinting, Househo ld Tasks, and Other activities as determined. QI SCORES: - Self-Care A. Eating 03-Partial/moderate assistance B. Oral hygiene 03-Partial/moderate assistance C. Toileting hygiene 03-Partial/moderate assistance E. Shower/bathe self 03-Partial/moderate assistance F. Upper body dressing 03-Partial/moderate assistance G. Lower body dressing 03-Partial/moderate assistance H. Putting on/taking off footwear 88-Not attempted due to medical condition or safety concerns - Mobility A. Roll left and right 03-Partial/moderate assistance B. Sit to lying 03-Partial/moderate assistance C. Lying to sitting on side of bed 03-Partial/moderate assistance D. Sit to stand 03-Partial/moderate assistance E. Chair/weh-na-pqthj transfer 03-Partial/moderate assistance F. Toilet transfer 03-Partial/moderate assistance G. Car transfer 88-Not attempted due to medical condition or safety concerns I. Walk 10 feet 88-Not attempted due to medical condition or safety concerns J. Walk 50 feet with two turns 88-Not attempted due to medical condition or safety concerns K. Walk 150 feet 88-Not attempted due to medical condition or safety concerns L. Walking 10 feet on uneven surfaces 88-Not attempted due to medical condition or safety concerns M. 1 step (curb) 88-Not attempted due to medical condition or safety concerns N. 4 steps 88-Not attempted due to medical condition or safety concerns O. 12 steps 88-Not attempted due to medical condition or safety concerns P. Picking up object 88-Not attempted due to medical condition or safety concerns R. Wheel 50 feet with two turns 88-Not attempted due to medical condition or safety concerns S. Wheel 150 feet 88-Not attempted due to medical condition or safety concerns - Bladder and Bowel Bladder continence Bowel continence - Endurance Fair - Balance Fair - Safety Awareness Fair POTENTIAL FUNCTIONAL GOALS FOR PATIENT TO ACHIEVE BY DISCHARGE: - Safety Precaution Patient will remain free from falls or injury at time of discharge. - Bed Mobility Patient will perform bed mobility at 4-Bernabe level of assistance. - Transfers Patient will complete transfers from bed to chair at 4-Bernabe level of assistance. - Mobility Patient will ambulate 150 ft with 4-Bernabe level of assistance with RW. PATIENT REHAB POTENTIAL Eva LAGUNA is able and expected to receive 3 hours of individualized therapy daily on at least 5 of 7 days Eva JOHNSONs prognosis for significant practical improvement within a reasonable period of time appears Good Expected level of measurable improvement will be of a practical value to Eva LAGUNA's functional capaci ty or adaptations to impairments Has a viable Discharge Plan Medically appropriate; condition is sufficiently stable to participate in intensive rehab program DISCHARGE PLAN: - Estimated Length of Stay (days) 16. - Consensus on plan Discharge plan has been discussed with primary caregiver. Patient/Family is in agreement with the micky n. Primary caregiver is in agreement with the plan. - Patient/Family Goals Return home independently. - Planned Living Setting Upon Discharge Home, to live alone. Transitional Living. Primary caregiver: Pt self. CONCLUSION ON REHABILITATION NECESSITY: I have evaluated patient's pre-admission functional status and, comparing it to the patient's post-ad mission functional status now, I conclude that the pre-admission assessment was accurate. Patient's c ondition on admission supports the medical necessity of admission to IR[facility]. It is safe to proceed with patient's therapy program. SIGNATURE PANEL: (CDT)
[2020-03-25] MEDS: GABAPENTIN 100 MG CAP PO SCH (20:08)
[2020-03-25] MEDS: FLUOXETINE 10 MG CAP PO SCH (20:08)
[2020-03-25] MEDS: ATORVASTATIN 20 MG TAB PO SCH (20:08)
[2020-03-25 20:52] LABS: Urine Appearance CLEAR; Urine Bilirubin NEGATIVE (NEG); Urine Blood NEGATIVE (NEG); Urine Color YELLOW; Urine Glucose 3+ (NEG); Urine Protein NEGATIVE (NEG); Urine Specific Gravity >=1.030 (1.005-1.030); Urine Urobilinogen 0.2 mg/dL (0.2-1.0)
[2020-03-25 21:03] LABS: Urine Bacteria <20 /HPF (<20); Urine Culture Reflex Order NOT NEEDED; Urine Mucus 1+ /HPF (NONE SEEN)
[2020-03-26] MEDS: HYDROCODONE/APAP 5/325 MG TAB PO PRN ×4 (02:20→20:25)
[2020-03-26 06:24] LABS: Absolute Lymphocytes (CBC) 3.8 K/uL (0.7-4.9); Basophils % 0.8 % (0-1.3); Hematocrit 41.1 % (36.0-45.0); Lymphocytes % 26.2 % (15.3-44.8); MPV 7.6 fL (7.6-11.3)
[2020-03-26 06:43] LABS: Albumin 2.9 g/dL (3.4-5.0); BUN Blood Urea Nitrogen 24 mg/dL (7-18); Bicarbonate 25 mmol/L (21-32); Glucose Level 161 mg/dL (74-106); Magnesium 2.1 mg/dL (1.8-2.4); Potassium 4.1 mmol/L (3.5-5.1); Prealbumin 31.3 mg/dL (20-40); Sodium Level 135 mmol/L (136-145)
[2020-03-26] MEDS: INSULIN -REGULAR HUMAN 50 UNIT/0.5 ML ML SQ SCH ×4 (07:30→20:25)
[2020-03-26] MEDS: NICOTINE 21 MG/PAT TD SCH (07:53)
[2020-03-26] MEDS: terbinafine HCL 250 MG TAB PO SCH ×3 (08:00→20:24)
[2020-03-26] MEDS: METFORMIN HCL 500 MG TAB PO SCH ×2 (08:11→17:08)
[2020-03-26] MEDS: FENOFIBRATE 160 MG TAB PO SCH (08:11)
[2020-03-26] MEDS: APIXABAN 2.5 MG TABLET PO SCH ×2 (08:11→20:24)
[2020-03-26] MEDS: VITAMIN D 5,000 UNIT CAP PO SCH (08:12)
[2020-03-26] MEDS: GABAPENTIN 100 MG CAP PO SCH ×2 (08:12→20:24)
--- NOTE | 2020-03-26 12:09 | FAST ---
OT QI REPORT FORM ENCOUNTER DATE AND TIME: 03/26/2020 08:00 (CDT) NAME NICOLAS LAGUNA DATE OF : 1970 DATE OF ADMISSION: 03/24/2020 17:23 (CDT) PHONE: AGE: 50 N# [id number] GENDER: Female ENCOUNTER PHYSICIAN: Dr. Erick Bosch M.D. ADMISSION DIAGNOSIS: - Spinal Cord Dysfunction 04 - Paraplegia, Unspecified (110) BEGNIGN NEOPLASM OF THE SPINAL MENINGES. EATING: Not assessed/no information CODE: - ORAL HYGIENE: ORAL HYGIENE - STEP 1: Does the patient complete the activity by him/herself with no assistance (physical, verbal/nonverbal cueing, setup/clean-up)? No. ORAL HYGIENE - STEP 2: Does the patient need only setup/clean-up assistance from one helper? Yes. 1. [id number] ADMISSION PERFORMANCE: Setup or clean-up assistance CODE: 05 TOILETING HYGIENE: TOILETING HYGIENE - STEP 1: Does the patient complete the activity by him/herself with no assistance (physical, verbal/nonverbal cueing, setup/clean-up)? No. TOILETING HYGIENE - STEP 2: Does the patient need only setup/clean-up assistance from one helper? No. TOILETING HYGIENE - STEP 3: Does the patient need only verbal/nonverbal cueing or touching/steadying/contact guard assistance fro m one helper? No. TOILETING HYGIENE - STEP 4: Does the patient need physical assistance - for example lifting or trunk support from one helper - wi th the helper providing less than half of the effort? No. TOILETING HYGIENE - STEP 5: Does the patient need physical assistance - for example lifting or trunk support from one helper - wi th the helper providing more than half of the effort? Yes. 1. [id number] ADMISSION PERFORMANCE: Substantial/maximal assistance CODE: 02 BATHING: SHOWER/BATHE SELF - STEP 1: Does the patient complete the activity by him/herself with no assistance (physical, verbal/nonverbal cueing, setup/clean-up)? No. SHOWER/BATHE SELF - STEP 2: Does the patient need only setup/clean-up assistance from one helper? No. SHOWER/BATHE SELF - STEP 3: Does the patient need only verbal/nonverbal cueing or touching/steadying/contact guard assistance fro m one helper? Yes. 1. [id number] ADMISSION PERFORMANCE: Supervision or touching assistance CODE: 04 DRESSING - UPPER BODY: DRESSING - UPPER BODY - STEP 1: Does the patient complete the activity by him/herself with no assistance (physical, verbal/nonverbal cueing, setup/clean-up)? No. DRESSING - UPPER BODY - STEP 2: Does the patient need only setup/clean-up assistance from one helper? Yes. 1. ADMISSION PERFORMANCE: Setup or clean-up assistance CODE: 05 DRESSING - LOWER BODY: DRESSING - LOWER BODY - STEP 1: Does the patient complete the activity by him/herself with no assistance (physical, verbal/nonverbal cueing, setup/clean-up)? No. DRESSING - LOWER BODY - STEP 2: Does the patient need only setup/clean-up assistance from one helper? No. DRESSING - LOWER BODY - STEP 3: Does the patient need only verbal/nonverbal cueing or touching/steadying/contact guard assistance fro m one helper? Yes. 1. ADMISSION PERFORMANCE: Supervision or touching assistance CODE: 04 PUTTING ON/TAKING OFF FOOTWEAR: FOOTWEAR - STEP 1: Does the patient complete the activity by him/herself with no assistance (physical, verbal/nonverbal cueing, setup/clean-up)? No. FOOTWEAR - STEP 2: Does the patient need only setup/clean-up assistance from one helper? No. FOOTWEAR - STEP 3: Does the patient need only verbal/nonverbal cueing or touching/steadying/contact guard assistance fro m one helper? No. FOOTWEAR - STEP 4: Does the patient need physical assistance - for example lifting or trunk support from one helper - wi th the helper providing less than half of the effort? Yes. 1. ADMISSION PERFORMANCE: Partial/moderate assistance CODE: 03 DOES THE PATIENT USE A WHEELCHAIR/SCOOTER? CODE: EXPR INDICATE THE TYPE OF WHEELCHAIR/SCOOTER USED: CODE: EXPR INDICATE THE TYPE OF WHEELCHAIR/SCOOTER USED: CODE: EXPR BLADDER AND BOWEL: CODE: EXPR CODE: EXPR SIGNATURE PANEL: The following modified sections: 1. [id number] Admission Performance, 1. [id number] Admission Performance, 1. [id number] Admission Performance, 1. EE0012a Admission Performance, 1. [id number] Admission Performance, 1. [id number] Admission Performance were [electronically] signed by FIDEL Abrams on MonMar 26 2020 12:09:24 GMT-0500 (Central Daylight Time)
--- NOTE | 2020-03-26 17:31 | R.PN ---
PROGRESS NOTES ENCOUNTER DATE AND TIME: 03/26/2020 17:20 (CDT) NAME NICOLAS LGAUNA DATE OF : 1970 DATE OF ADMISSION: 03/24/2020 17:23 (CDT) BEGNIGN NEOPLASM OF THE SPINAL MENINGESCHIEF COMPLAINT: Spinal cord compression, status post decompression. SUBJECTIVE: Pt denied any depression. Pt denied any Shortness of Breath. She has improved lower extremity sensory deficits and weakness following thoracic cord decompression. WBC 14.7, neutrophils 64%, prealbumin 31.3, Na is 135, Coroner Transport Technician is 0.67, UA negative for UTI, COVID-19 neg ative. Ambulated 225' with contact guard to standby assistance using a rolling walker. VITAL SIGNS Temperature: 97.6 F SBP/DBP: 116/64 Pulse: 73 Resp: 16 MEDICATION ALLERGIES: INDOCIN TETRACYCLINES ENVIRONMENTAL ALLERGIES: - Substance Allergies None Known - Other Allergies None Known NURSING: - Shower allowing shower - Lab Results blood Sugar Check ACHS - Bladder care per protocol - Skin care per protocol PRECAUTIONS: - Weight Bearing Precaution WBAT both LE ACTIVITIES OOB only with supervision THERAPIES: - Orthotics/Prosthetics Orthotic Evaluation. Splinting/Casting. - Dietary and Nutrition Adequate Nutrition. Nutritional Education. Nutritional Supplements. PHYSICAL EXAM - Gen Alert and awake Lying in bed No apparent distress Oriented to: person, time, and place - Skin Thoracic spinal incision is healing well. No abnormalities - Eyes No abnormalities - ENMT No abnormalities - Neck No abnormalities - CVS RRR - Chest No abnormalities - Resp Clear to auscultation - Abd + bowel sounds - GI nondistended Deferred - No abnormalities - Ext Mild bilateral lower extremity edema. - MSK 4+/5 weakness in both lower extremities. - Neuro 4/5 strength bilaterally lower extremities. - Psych No abnormalities ASSESSMENT: Pt. is a 50 yo Right-handed female of unknown race.On 03/17/2020 she was admitted to [facility] with diagnosis BEGNIGN NEOPLASM OF THE SPINAL MENINGES.Her impairment category is Spinal Cord Dysfun ction 04 - Paraplegia, Unspecified (04.110).Pre-morbidly, Pt. was independent/mod-I in Locomotion, B alance, Safety Awareness, Transfers Control, Self-Care, and Communication; and she had good Endurance and Social Cognition.Currently, she has deficits of Locomotion, Balance, Transfers Control, Sphincte r Control, and Endurance.Pt. is now referred to [facility] for acute in-patien t rehabilitation in order to maximize patient's functional independence in activities of daily living , strength, ROM, and mobility.- Rehab Goal Patient has realistic goal of being discharged at assistance level 7-Ind to reside at Home with Pt s elf. MDM/PLAN: - Physical Therapy Gait dysfunction - to improve, our physical therapists will perform initial evaluation of pt's statu s upon admission and devise an individualized program for Gait Training, and Wheel Chair mobility Inability to transfer - to improve, our physical therapists will perform initial evaluation of pt's status upon admission and devise an individualized program for Bed mobility Need for home safety evaluation - to improve, our physical therapists will perform initial evaluatio n of pt's status upon admission and devise an individualized program for Home Evaluation Need in caregiver upon discharge - to improve, our physical therapists will perform initial evaluati on of pt's status upon admission and devise an individualized program for Caregiver Training New precaution - to improve, our physical therapists will perform initial evaluation of pt's status upon admission and devise an individualized program for Patient precaution education Edema - to improve, our physical therapists will perform initial evaluation of pt's status upon admis birgit and devise an individualized program for Elevation Training, and Lymphedema Therapy Poor balance - to improve, our physical therapists will perform initial evaluation of pt's status up on admission and devise an individualized program for Balance Training Poor endurance - to improve, our physical therapists will perform initial evaluation of pt's status upon admission and devise an individualized program for Endurance Training Weakness - to improve, our physical therapists will perform initial evaluation of pt's status upon a dmission and devise an individualized program for Aquatic Therapy, Neuromuscular Reeducation, and Str engthening Achieving independence - to improve, our physical therapists will perform initial evaluation of pt's status upon admission and devise an individualized program for Community Reintegration Activities - Occupational Therapy Need for veterinarian laboratory animal care - to improve, our occupation therapists will perform initial evaluation of pt's status upon admission and devise an individualized program for Caregiver Training Weakness - to improve, our occupation therapists will perform initial evaluation of pt's status upon admission and devise an individualized program for Aquatic Therapy, Balance, Endurance, UE ROM, and UE strengthening - Other See attached MAR (Medication Administration Record) - Diet Type Continue Regular - Diet - Liquid Texture Continue Regular - Tube Feed Continue N/A - Lab Results blood Sugar Check ACHS - Bladder care per protocol - Weight Bearing Precaution WBAT both LE - Skin care per protocol - Diet - Solid Texture Continue Regular - Shower allowing shower FUNCTIONAL STATUS: UPDATED AT WEEKLY TEAM CONFERENCE - Bladder Same accident frequency: 7-Ind - No accidents in the past 7 days - Bowel Same accident frequency: 7-Ind - No accidents in the past 7 days - Walking Same score based on distance walked: 0(N/A) - Wheelchair Same score based on distance traveled: 0(N/A) FUNCTIONAL STATUS: - Self-Care A. Eating Ind B. Grooming Santiago C. Bathing Bernabe D. Dressing - Upper Bernabe E. Dressing - Lower modA F. Toileting Bernabe - Sphincter Control G. Bladder control Santiago H. Bowel control Santiago - Transfers Control I. Bed/Chair/Wheelchair Bernabe J. Toilet Bernabe K. Tub/Shower modA - Locomotion L. Walk/Wheelchair (B) Bernabe M. Stairs ADNO - Communication N. Comprehension (B) Santiago O. Expression (B) Santiago - Social Cognition P. Social Interaction Ind Q. Problem Solving Ind R. Memory Ind - Endurance Good - Balance Fair - Safety Awareness Good QI SCORES: - Self-Care A. Eating 03-Partial/moderate assistance B. Oral hygiene 03-Partial/moderate assistance C. Toileting hygiene 03-Partial/moderate assistance E. Shower/bathe self 03-Partial/moderate assistance F. Upper body dressing 03-Partial/moderate assistance G. Lower body dressing 03-Partial/moderate assistance H. Putting on/taking off footwear 88-Not attempted due to medical condition or safety concerns - Mobility A. Roll left and right 03-Partial/moderate assistance B. Sit to lying 03-Partial/moderate assistance C. Lying to sitting on side of bed 03-Partial/moderate assistance D. Sit to stand 03-Partial/moderate assistance E. Chair/[id number] transfer 03-Partial/moderate assistance F. Toilet transfer 03-Partial/moderate assistance G. Car transfer 88-Not attempted due to medical condition or safety concerns I. Walk 10 feet 88-Not attempted due to medical condition or safety concerns J. Walk 50 feet with two turns 88-Not attempted due to medical condition or safety concerns K. Walk 150 feet 88-Not attempted due to medical condition or safety concerns L. Walking 10 feet on uneven surfaces 88-Not attempted due to medical condition or safety concerns M. 1 step (curb) 88-Not attempted due to medical condition or safety concerns N. 4 steps 88-Not attempted due to medical condition or safety concerns O. 12 steps 88-Not attempted due to medical condition or safety concerns P. Picking up object 88-Not attempted due to medical condition or safety concerns R. Wheel 50 feet with two turns 88-Not attempted due to medical condition or safety concerns S. Wheel 150 feet 88-Not attempted due to medical condition or safety concerns - Bladder and Bowel Bladder continence Bowel continence - Endurance Fair - Balance Fair - Safety Awareness Fair [facility] DEFICITS: Self-Care, Mobility, Endurance, Balance, and Safety Awareness SIGNATURE PANEL: (CDT)
[2020-03-26] MEDS: ATORVASTATIN 20 MG TAB PO SCH (20:24)
[2020-03-26] MEDS: FLUOXETINE 10 MG CAP PO SCH (20:24)
[2020-03-27] MEDS: INSULIN -REGULAR HUMAN 50 UNIT/0.5 ML ML SQ SCH ×4 (07:30→20:07)
[2020-03-27] MEDS: NICOTINE 21 MG/PAT TD SCH (07:39)
[2020-03-27] MEDS: VITAMIN D 5,000 UNIT CAP PO SCH (07:43)
[2020-03-27] MEDS: HYDROCODONE/APAP 5/325 MG TAB PO PRN ×4 (07:44→21:04)
[2020-03-27] MEDS: GABAPENTIN 100 MG CAP PO SCH ×2 (07:44→19:47)
[2020-03-27] MEDS: METFORMIN HCL 500 MG TAB PO SCH ×2 (07:44→17:21)
[2020-03-27] MEDS: APIXABAN 2.5 MG TABLET PO SCH ×2 (07:44→19:47)
[2020-03-27] MEDS: FENOFIBRATE 160 MG TAB PO SCH (07:44)
--- NOTE | 2020-03-27 09:53 | P.RH.PN ---
Estimated Length of Stay: 17 Expected Discharge Date: 04/09/20 Discharge Disposition Plan: Home Family Support: Yes Half-Way Goal: Mobility, Transfers, Self Care Vital Signs: Last Vital Signs Temp 97.2 F 03/27/20 07:43 Pulse 86 03/27/20 07:43 Resp 16 03/27/20 08:41 BP 127/66 03/27/20 07:43 Pulse Ox 97 03/27/20 08:41 Laboratory: Laboratory Last Values WBC 14.7 K/uL (4.3-10.9) H 03/26/20 06:12 RBC 4.60 M/uL (3.86-4.86) 03/26/20 06:12 Hgb 14.1 g/dL (12.0-15.0) 03/26/20 06:12 Hct 41.1 % (36.0-45.0) 03/26/20 06:12 MCV 89.3 fL (80-100) 03/26/20 06:12 MCH 30.6 pg (27.0-35.0) 03/26/20 06:12 MCHC 34.2 g/dL (32.0-36.0) 03/26/20 06:12 RDW 15.2 % (12.1-15.2) 03/26/20 06:12 Plt Count 371 K/uL (152-406) 03/26/20 06:12 MPV 7.6 fL (7.6-11.3) 03/26/20 06:12 Neutrophils % 64.1 % (41.7-73.7) 03/26/20 06:12 Lymphocytes % 26.2 % (15.3-44.8) 03/26/20 06:12 Monocytes % 6.3 % (3.3-12.3) 03/26/20 06:12 Eosinophils % 2.6 % (0-4.4) 03/26/20 06:12 Basophils % 0.8 % (0-1.3) 03/26/20 06:12 Absolute Neutrophils 9.4 K/uL (1.8-8.0) H 03/26/20 06:12 Absolute Lymphocytes 3.8 K/uL (0.7-4.9) 03/26/20 06:12 Absolute Monocytes 0.9 K/uL (0.1-1.3) 03/26/20 06:12 Absolute Eosinophils 0.4 K/uL (0-0.5) 03/26/20 06:12 Absolute Basophils 0.1 K/uL (0-0.5) 03/26/20 06:12 Sodium 135 mmol/L (136-145) L 03/26/20 06:12 Potassium 4.1 mmol/L (3.5-5.1) 03/26/20 06:12 Chloride 103 mmol/L (98-107) 03/26/20 06:12 Carbon Dioxide 25 mmol/L (21-32) 03/26/20 06:12 BUN 24 mg/dL (7-18) H 03/26/20 06:12 Creatinine 0.67 mg/dL (0.55-1.3) 03/26/20 06:12 Estimated GFR > 90 mL/min (=/>90) 03/26/20 06:12 Glucose 161 mg/dL (74-106) H 03/26/20 06:12 Calcium 9.0 mg/dL (8.5-10.1) 03/26/20 06:12 Magnesium 2.1 mg/dL (1.8-2.4) 03/26/20 06:12 Albumin 2.9 g/dL (3.4-5.0) L 03/26/20 06:12 Prealbumin 31.3 mg/dL (20-40) 03/26/20 06:12 Urine Color Yellow 03/25/20 20:10 Urine Appearance Clear 03/25/20 20:10 Urine pH 6.0 (5.0-7.0) 03/25/20 20:10 Ur Specific [place] >=1.030 (1.005-1.030) 03/25/20 20:10 Glucose (UA)(Auto) 3+ (NEG) H 03/25/20 20:10 Urine Ketones Negative (NEG) 03/25/20 20:10 Urine Blood Negative (NEG) 03/25/20 20:10 Urine Nitrite Negative (NEG) 03/25/20 20:10 Urine Bilirubin Negative (NEG) 03/25/20 20:10 Urine Urobilinogen 0.2 mg/dL (0.2-1.0) 03/25/20 20:10 Ur Leukocyte Esterase Negative (NEG) 03/25/20 20:10 Urine RBC 5-10 /HPF (NONE SEEN) H 03/25/20 20:10 Urine WBC 5-10 /HPF (<5) H 03/25/20 20:10 Ur Squamous Epith Cells <5 /HPF (NONE SEEN) 03/25/20 20:10 Urine Bacteria <20 /HPF (<20) 03/25/20 20:10 Urine Mucus 1+ /HPF (NONE SEEN) 03/25/20 20:10 Urine Culture Reflexed Not needed 03/25/20 20:10 Urine Total Protein Negative (NEG) 03/25/20 20:10 SARS-CoV-2 RNA (RT-PCR) Negative (NEGATIVE) 03/25/20 09:05 Weight: 230 lb 12.8 oz Wound Present: No Closed Surgical Incision Present: Yes Negative Pressure Wound Therapy Present: No Physician Update: WBC is elevated to 14.7 with normal neutrophils. Her UA shows 4+ gram negative rods. Will start cranberry and push water. May start antibiotics is cultures are positive. Her is better with gabapentin and [place]. Her sensation in the feet and strength in the lower extremities are improving. Functional Improvement: Patient is working toward meeting goals. Patient presents w/ good work ethic and attitude. Patient has shown progress over the last two days, and follows instruction well. Summary: Patient's care plan and group home goals have been reviewed and revised as necessary. Please see the Rehabilitation Signature page for all necessary signatures.
[2020-03-27] MEDS: CRANBERRY FRUIT EXTRACT 200 MG CAP PO SCH (19:47)
[2020-03-27] MEDS: ATORVASTATIN 20 MG TAB PO SCH (20:06)
[2020-03-27] MEDS: terbinafine HCL 250 MG TAB PO SCH (20:07)
[2020-03-27] MEDS: FLUOXETINE 10 MG CAP PO SCH (20:07)
[2020-03-28] MEDS: HYDROCODONE/APAP 5/325 MG TAB PO PRN ×4 (02:33→20:12)
[2020-03-28] MEDS: INSULIN -REGULAR HUMAN 50 UNIT/0.5 ML ML SQ SCH ×4 (07:30→20:29)
[2020-03-28] MEDS: CRANBERRY FRUIT EXTRACT 200 MG CAP PO SCH ×2 (07:51→20:12)
[2020-03-28] MEDS: VITAMIN D 5,000 UNIT CAP PO SCH (07:52)
[2020-03-28] MEDS: APIXABAN 2.5 MG TABLET PO SCH ×2 (07:52→20:12)
[2020-03-28] MEDS: GABAPENTIN 100 MG CAP PO SCH ×2 (07:53→20:12)
[2020-03-28] MEDS: FENOFIBRATE 160 MG TAB PO SCH (07:53)
[2020-03-28] MEDS: METFORMIN HCL 500 MG TAB PO SCH ×2 (07:53→17:00)
[2020-03-28] MEDS: NICOTINE 21 MG/PAT TD SCH ×2 (07:55→09:25)
[2020-03-28] MEDS ORDERED: MAGNESIUM HYDROXIDE 8% 30 ML PO PRN (13:42)
[2020-03-28] MEDS: FLUOXETINE 10 MG CAP PO SCH (20:12)
[2020-03-28] MEDS: ATORVASTATIN 20 MG TAB PO SCH (20:12)
[2020-03-28] MEDS: terbinafine HCL 250 MG TAB PO SCH (20:12)
[2020-03-29] MEDS: HYDROCODONE/APAP 5/325 MG TAB PO PRN ×5 (00:19→20:43)
[2020-03-29] MEDS: INSULIN -REGULAR HUMAN 50 UNIT/0.5 ML ML SQ SCH ×4 (07:30→20:22)
[2020-03-29] MEDS: VITAMIN D 5,000 UNIT CAP PO SCH (08:56)
[2020-03-29] MEDS: GABAPENTIN 100 MG CAP PO SCH ×2 (08:56→20:21)
[2020-03-29] MEDS: METFORMIN HCL 500 MG TAB PO SCH ×2 (08:56→16:27)
[2020-03-29] MEDS: FENOFIBRATE 160 MG TAB PO SCH (08:57)
[2020-03-29] MEDS: APIXABAN 2.5 MG TABLET PO SCH ×2 (08:57→20:21)
[2020-03-29] MEDS: CRANBERRY FRUIT EXTRACT 200 MG CAP PO SCH ×2 (08:58→20:21)
[2020-03-29] MEDS: NICOTINE 21 MG/PAT TD SCH (09:12)
[2020-03-29] MEDS: terbinafine HCL 250 MG TAB PO SCH (20:21)
[2020-03-29] MEDS: ATORVASTATIN 20 MG TAB PO SCH (20:21)
[2020-03-29] MEDS: FLUOXETINE 10 MG CAP PO SCH (20:21)
[2020-03-29] MEDS: SMZ./TMP. 800/160 MG TABLET PO SCH (20:21)
[2020-03-30] MEDS: HYDROCODONE/APAP 5/325 MG TAB PO PRN ×4 (03:13→19:25)
[2020-03-30 06:33] LABS: Absolute Lymphocytes (CBC) 3.6 K/uL (0.7-4.9); Basophils % 1.1 % (0-1.3); Hematocrit 38.2 % (36.0-45.0); MPV 7.8 fL (7.6-11.3); RBC Red Blood Cell Count 4.26 M/uL (3.86-4.86)
[2020-03-30] MEDS: INSULIN -REGULAR HUMAN 50 UNIT/0.5 ML ML SQ SCH ×4 (07:30→19:59)
[2020-03-30] MEDS: SMZ./TMP. 800/160 MG TABLET PO SCH ×3 (07:55→19:25)
[2020-03-30] MEDS: CRANBERRY FRUIT EXTRACT 200 MG CAP PO SCH ×2 (07:55→19:24)
[2020-03-30] MEDS: GABAPENTIN 100 MG CAP PO SCH ×2 (07:57→19:25)
[2020-03-30] MEDS: APIXABAN 2.5 MG TABLET PO SCH ×2 (07:57→19:25)
[2020-03-30] MEDS: METFORMIN HCL 500 MG TAB PO SCH ×2 (07:57→16:58)
[2020-03-30] MEDS: FENOFIBRATE 160 MG TAB PO SCH (07:57)
[2020-03-30] MEDS: VITAMIN D 5,000 UNIT CAP PO SCH (07:58)
[2020-03-30] MEDS: NICOTINE 21 MG/PAT TD SCH (10:19)
--- NOTE | 2020-03-30 17:14 | R.PN ---
PROGRESS NOTES ENCOUNTER DATE AND TIME: 03/30/2020 17:07 (CDT) NAME NICOLAS LAGUNA DATE OF : 1970 DATE OF ADMISSION: 03/24/2020 17:23 (CDT) BEGNIGN NEOPLASM OF THE SPINAL MENINGESCHIEF COMPLAINT: Spinal cord compression, status post decompression. SUBJECTIVE: Pt denied any depression. Pt denied any Shortness of Breath. She has improved lower extremity sensory deficits and weakness following thoracic cord decompression. WBC 11.3, neutrophils 56.8%, prealbumin 31.3, Na is 135, Air Traffic Control Supervisor is 0.67, UA negative for UTI, COVID-19 n egative. Ambulated 355' with standby assistance using a rolling walker. Up and down 15 steps with standby assi stance. Self-propelled wheelchair 500' with independence. VITAL SIGNS Temperature: 97.2 F SBP/DBP: 113/53 Pulse: 84 Resp: 16 MEDICATION ALLERGIES: INDOCIN TETRACYCLINES ENVIRONMENTAL ALLERGIES: - Substance Allergies None Known - Other Allergies None Known NURSING: - Shower allowing shower - Lab Results blood Sugar Check ACHS - Bladder care per protocol - Skin care per protocol PRECAUTIONS: - Weight Bearing Precaution WBAT both LE ACTIVITIES OOB only with supervision THERAPIES: - Orthotics/Prosthetics Orthotic Evaluation. Splinting/Casting. - Dietary and Nutrition Adequate Nutrition. Nutritional Education. Nutritional Supplements. PHYSICAL EXAM - Gen Alert and awake Lying in bed No apparent distress Oriented to: person, time, and place - Skin Thoracic spinal incision is healing well. No abnormalities - Eyes No abnormalities - ENMT No abnormalities - Neck No abnormalities - CVS RRR - Chest No abnormalities - Resp Clear to auscultation - Abd + bowel sounds - GI nondistended Deferred - No abnormalities - Ext Mild bilateral lower extremity edema. - MSK 4+/5 weakness in both lower extremities. - Neuro 4/5 strength bilaterally lower extremities. - Psych No abnormalities ASSESSMENT: Pt. is a 50 yo Right-handed female of unknown race.On 03/17/2020 she was admitted to [facility] with diagnosis BEGNIGN NEOPLASM OF THE SPINAL MENINGES.Her impairment category is Spinal Cord Dysfun ction 04 - Paraplegia, Unspecified (04.110).Pre-morbidly, Pt. was independent/mod-I in Locomotion, B alance, Safety Awareness, Transfers Control, Self-Care, and Communication; and she had good Endurance and Social Cognition.Currently, she has deficits of Locomotion, Balance, Transfers Control, Sphincte r Control, and Endurance.Pt. is now referred to [facility] for acute in-patien t rehabilitation in order to maximize patient's functional independence in activities of daily living , strength, ROM, and mobility.- Rehab Goal Patient has realistic goal of being discharged at assistance level 7-Ind to reside at Home with Pt s elf. MDM/PLAN: - Physical Therapy Gait dysfunction - to improve, our physical therapists will perform initial evaluation of pt's statu s upon admission and devise an individualized program for Gait Training, and Wheel Chair mobility Inability to transfer - to improve, our physical therapists will perform initial evaluation of pt's status upon admission and devise an individualized program for Bed mobility Need for home safety evaluation - to improve, our physical therapists will perform initial evaluatio n of pt's status upon admission and devise an individualized program for Home Evaluation Need in caregiver upon discharge - to improve, our physical therapists will perform initial evaluati on of pt's status upon admission and devise an individualized program for Caregiver Training New precaution - to improve, our physical therapists will perform initial evaluation of pt's status upon admission and devise an individualized program for Patient precaution education Edema - to improve, our physical therapists will perform initial evaluation of pt's status upon admi ssion and devise an individualized program for Elevation Training, and Lymphedema Therapy Poor balance - to improve, our physical therapists will perform initial evaluation of pt's status up on admission and devise an individualized program for Balance Training Poor endurance - to improve, our physical therapists will perform initial evaluation of pt's status upon admission and devise an individualized program for Endurance Training Weakness - to improve, our physical therapists will perform initial evaluation of pt's status upon a dmission and devise an individualized program for Aquatic Therapy, Neuromuscular Reeducation, and Str engthening Achieving independence - to improve, our physical therapists will perform initial evaluation of pt's status upon admission and devise an individualized program for Community Reintegration Activities - Occupational Therapy Need for senior resident care director - to improve, our occupation therapists will perform initial evaluation of pt's status upon admission and devise an individualized program for Caregiver Training Weakness - to improve, our occupation therapists will perform initial evaluation of pt's status upon admission and devise an individualized program for Aquatic Therapy, Balance, Endurance, UE ROM, and UE strengthening - Other See attached MAR (Medication Administration Record) - Diet Type Continue Regular - Diet - Liquid Texture Continue Regular - Tube Feed Continue N/A - Lab Results blood Sugar Check ACHS - Bladder care per protocol - Weight Bearing Precaution WBAT both LE - Skin care per protocol - Diet - Solid Texture Continue Regular - Shower allowing shower FUNCTIONAL STATUS: UPDATED AT WEEKLY TEAM CONFERENCE - Bladder Same accident frequency: 7-Ind - No accidents in the past 7 days - Bowel Same accident frequency: 7-Ind - No accidents in the past 7 days - Walking Same score based on distance walked: 0(N/A) - Wheelchair Same score based on distance traveled: 0(N/A) FUNCTIONAL STATUS: - Self-Care A. Eating Ind B. Grooming Santiago C. Bathing Bernabe D. Dressing - Upper Bernabe E. Dressing - Lower modA F. Toileting Bernabe - Sphincter Control G. Bladder control Santiago H. Bowel control Santiago - Transfers Control I. Bed/Chair/Wheelchair Bernabe J. Toilet Bernabe K. Tub/Shower modA - Locomotion L. Walk/Wheelchair (B) Bernabe M. Stairs ADNO - Communication N. Comprehension (B) Santiago O. Expression (B) Santiago - Social Cognition P. Social Interaction Ind Q. Problem Solving Ind R. Memory Ind - Endurance Good - Balance Fair - Safety Awareness Good QI SCORES: - Self-Care A. Eating 03-Partial/moderate assistance B. Oral hygiene 03-Partial/moderate assistance C. Toileting hygiene 03-Partial/moderate assistance E. Shower/bathe self 03-Partial/moderate assistance F. Upper body dressing 03-Partial/moderate assistance G. Lower body dressing 03-Partial/moderate assistance H. Putting on/taking off footwear 88-Not attempted due to medical condition or safety concerns - Mobility A. Roll left and right 03-Partial/moderate assistance B. Sit to lying 03-Partial/moderate assistance C. Lying to sitting on side of bed 03-Partial/moderate assistance D. Sit to stand 03-Partial/moderate assistance E. Chair/[id number] transfer 03-Partial/moderate assistance F. Toilet transfer 03-Partial/moderate assistance G. Car transfer 88-Not attempted due to medical condition or safety concerns I. Walk 10 feet 88-Not attempted due to medical condition or safety concerns J. Walk 50 feet with two turns 88-Not attempted due to medical condition or safety concerns K. Walk 150 feet 88-Not attempted due to medical condition or safety concerns L. Walking 10 feet on uneven surfaces 88-Not attempted due to medical condition or safety concerns M. 1 step (curb) 88-Not attempted due to medical condition or safety concerns N. 4 steps 88-Not attempted due to medical condition or safety concerns O. 12 steps 88-Not attempted due to medical condition or safety concerns P. Picking up object 88-Not attempted due to medical condition or safety concerns R. Wheel 50 feet with two turns 88-Not attempted due to medical condition or safety concerns S. Wheel 150 feet 88-Not attempted due to medical condition or safety concerns - Bladder and Bowel Bladder continence Bowel continence - Endurance Fair - Balance Fair - Safety Awareness Fair CURRENT [facility]. DEFICITS: Self-Care, Mobility, Endurance, Balance, and Safety Awareness SIGNATURE PANEL: (CDT)
[2020-03-30] MEDS: terbinafine HCL 250 MG TAB PO SCH (19:25)
[2020-03-30] MEDS: ATORVASTATIN 20 MG TAB PO SCH (19:25)
[2020-03-30] MEDS: FLUOXETINE 10 MG CAP PO SCH (19:27)
[2020-03-31] MEDS: INSULIN -REGULAR HUMAN 50 UNIT/0.5 ML ML SQ SCH ×4 (07:30→19:49)
[2020-03-31] MEDS: NICOTINE 21 MG/PAT TD SCH (07:34)
[2020-03-31] MEDS: HYDROCODONE/APAP 5/325 MG TAB PO PRN ×2 (08:03→19:48)
[2020-03-31] MEDS: GABAPENTIN 100 MG CAP PO SCH ×2 (08:05→19:49)
[2020-03-31] MEDS: CRANBERRY FRUIT EXTRACT 200 MG CAP PO SCH ×2 (08:05→19:48)
[2020-03-31] MEDS: SMZ./TMP. 800/160 MG TABLET PO SCH ×2 (08:05→19:49)
[2020-03-31] MEDS: APIXABAN 2.5 MG TABLET PO SCH ×2 (08:06→19:48)
[2020-03-31] MEDS: VITAMIN D 5,000 UNIT CAP PO SCH (08:06)
[2020-03-31] MEDS: METFORMIN HCL 500 MG TAB PO SCH ×2 (08:06→16:53)
[2020-03-31] MEDS: FENOFIBRATE 160 MG TAB PO SCH (08:06)
--- NOTE | 2020-03-31 18:19 | R.PN ---
PROGRESS NOTES ENCOUNTER DATE AND TIME: 03/31/2020 18:16 (CDT) NAME NICOLAS LAGUNA DATE OF : 1970 DATE OF ADMISSION: 03/24/2020 17:23 (CDT) BEGNIGN NEOPLASM OF THE SPINAL MENINGESCHIEF COMPLAINT: Spinal cord compression, status post decompression. SUBJECTIVE: Pt denied any depression. Pt denied any Shortness of Breath. She has improved lower extremity sensory deficits and weakness following thoracic cord decompression. WBC 11.3, neutrophils 56.8%, prealbumin 31.3, Na is 135, Nephrologist is 0.67, UA negative for UTI, COVID-19 n egative. Ambulated 470' with standby assistance using a rolling walker. Up and down 15 steps with standby assi stance. Self-propelled wheelchair 500' with independence. VITAL SIGNS Temperature: 97.4 F SBP/DBP: 117/62 Pulse: 74 Resp: 16 MEDICATION ALLERGIES: INDOCIN TETRACYCLINES ENVIRONMENTAL ALLERGIES: - Substance Allergies None Known - Other Allergies None Known NURSING: - Shower allowing shower - Lab Results blood Sugar Check ACHS - Bladder care per protocol - Skin care per protocol PRECAUTIONS: - Weight Bearing Precaution WBAT both LE ACTIVITIES OOB only with supervision THERAPIES: - Orthotics/Prosthetics Orthotic Evaluation. Splinting/Casting. - Dietary and Nutrition Adequate Nutrition. Nutritional Education. Nutritional Supplements. PHYSICAL EXAM - Gen Alert and awake Lying in bed No apparent distress Oriented to: person, time, and place - Skin Thoracic spinal incision is healing well. No abnormalities - Eyes No abnormalities - ENMT No abnormalities - Neck No abnormalities - CVS RRR - Chest No abnormalities - Resp Clear to auscultation - Abd + bowel sounds - GI nondistended Deferred - No abnormalities - Ext Mild bilateral lower extremity edema. - MSK 4+/5 weakness in both lower extremities. - Neuro 4/5 strength bilaterally lower extremities. - Psych No abnormalities ASSESSMENT: Pt. is a 50 yo Right-handed female of unknown race.On 03/17/2020 she was admitted to [facility] with diagnosis BEGNIGN NEOPLASM OF THE SPINAL MENINGES.Her impairment category is Spinal Cord Dysfun ction 04 - Paraplegia, Unspecified (04.110).Pre-morbidly, Pt. was independent/mod-I in Locomotion, B alance, Safety Awareness, Transfers Control, Self-Care, and Communication; and she had good Endurance and Social Cognition.Currently, she has deficits of Locomotion, Balance, Transfers Control, Sphincte r Control, and Endurance.Pt. is now referred to [facility] for acute in-patien t rehabilitation in order to maximize patient's functional independence in activities of daily living , strength, ROM, and mobility.- Rehab Goal Patient has realistic goal of being discharged at assistance level 7-Ind to reside at Home with Pt s elf. MDM/PLAN: - Physical Therapy Gait dysfunction - to improve, our physical therapists will perform initial evaluation of pt's statu s upon admission and devise an individualized program for Gait Training, and Wheel Chair mobility Inability to transfer - to improve, our physical therapists will perform initial evaluation of pt's status upon admission and devise an individualized program for Bed mobility Need for home safety evaluation - to improve, our physical therapists will perform initial evaluatio n of pt's status upon admission and devise an individualized program for Home Evaluation Need in caregiver upon discharge - to improve, our physical therapists will perform initial evaluati on of pt's status upon admission and devise an individualized program for Caregiver Training New precaution - to improve, our physical therapists will perform initial evaluation of pt's status upon admission and devise an individualized program for Patient precaution education Edema - to improve, our physical therapists will perform initial evaluation of pt's status upon admi ssion and devise an individualized program for Elevation Training, and Lymphedema Therapy Poor balance - to improve, our physical therapists will perform initial evaluation of pt's status up on admission and devise an individualized program for Balance Training Poor endurance - to improve, our physical therapists will perform initial evaluation of pt's status upon admission and devise an individualized program for Endurance Training Weakness - to improve, our physical therapists will perform initial evaluation of pt's status upon a dmission and devise an individualized program for Aquatic Therapy, Neuromuscular Reeducation, and Str engthening Achieving independence - to improve, our physical therapists will perform initial evaluation of pt's status upon admission and devise an individualized program for Community Reintegration Activities - Occupational Therapy Need for home care nurse - to improve, our occupation therapists will perform initial evaluation of pt's status upon admission and devise an individualized program for Caregiver Training Weakness - to improve, our occupation therapists will perform initial evaluation of pt's status upon admission and devise an individualized program for Aquatic Therapy, Balance, Endurance, UE ROM, and UE strengthening - Other See attached MAR (Medication Administration Record) - Diet Type Continue Regular - Diet - Liquid Texture Continue Regular - Tube Feed Continue N/A - Lab Results blood Sugar Check ACHS - Bladder care per protocol - Weight Bearing Precaution WBAT both LE - Skin care per protocol - Diet - Solid Texture Continue Regular - Shower allowing shower FUNCTIONAL STATUS: UPDATED AT WEEKLY TEAM CONFERENCE - Bladder Same accident frequency: 7-Ind - No accidents in the past 7 days - Bowel Same accident frequency: 7-Ind - No accidents in the past 7 days - Walking Same score based on distance walked: 0(N/A) - Wheelchair Same score based on distance traveled: 0(N/A) FUNCTIONAL STATUS: - Self-Care A. Eating Ind B. Grooming Santiago C. Bathing Bernabe D. Dressing - Upper Bernabe E. Dressing - Lower modA F. Toileting Bernabe - Sphincter Control G. Bladder control Santiago H. Bowel control Santiago - Transfers Control I. Bed/Chair/Wheelchair Bernabe J. Toilet Bernabe K. Tub/Shower modA - Locomotion L. Walk/Wheelchair (B) Bernabe M. Stairs ADNO - Communication N. Comprehension (B) Santiago O. Expression (B) Santiago - Social Cognition P. Social Interaction Ind Q. Problem Solving Ind R. Memory Ind - Endurance Good - Balance Fair - Safety Awareness Good QI SCORES: - Self-Care A. Eating 03-Partial/moderate assistance B. Oral hygiene 03-Partial/moderate assistance C. Toileting hygiene 03-Partial/moderate assistance E. Shower/bathe self 03-Partial/moderate assistance F. Upper body dressing 03-Partial/moderate assistance G. Lower body dressing 03-Partial/moderate assistance H. Putting on/taking off footwear 88-Not attempted due to medical condition or safety concerns - Mobility A. Roll left and right 03-Partial/moderate assistance B. Sit to lying 03-Partial/moderate assistance C. Lying to sitting on side of bed 03-Partial/moderate assistance D. Sit to stand 03-Partial/moderate assistance E. Chair/[id number]-[id number] transfer 03-Partial/moderate assistance F. Toilet transfer 03-Partial/moderate assistance G. Car transfer 88-Not attempted due to medical condition or safety concerns I. Walk 10 feet 88-Not attempted due to medical condition or safety concerns J. Walk 50 feet with two turns 88-Not attempted due to medical condition or safety concerns K. Walk 150 feet 88-Not attempted due to medical condition or safety concerns L. Walking 10 feet on uneven surfaces 88-Not attempted due to medical condition or safety concerns M. 1 step (curb) 88-Not attempted due to medical condition or safety concerns N. 4 steps 88-Not attempted due to medical condition or safety concerns O. 12 steps 88-Not attempted due to medical condition or safety concerns P. Picking up object 88-Not attempted due to medical condition or safety concerns R. Wheel 50 feet with two turns 88-Not attempted due to medical condition or safety concerns S. Wheel 150 feet 88-Not attempted due to medical condition or safety concerns - Bladder and Bowel Bladder continence Bowel continence - Endurance Fair - Balance Fair - Safety Awareness Fair CURRENT [facility]. DEFICITS: Self-Care, Mobility, Endurance, Balance, and Safety Awareness SIGNATURE PANEL: (CDT)
[2020-03-31] MEDS: ATORVASTATIN 20 MG TAB PO SCH (19:49)
[2020-03-31] MEDS: terbinafine HCL 250 MG TAB PO SCH (19:49)
[2020-03-31] MEDS: FLUOXETINE 10 MG CAP PO SCH (19:51)
[2020-04-01] MEDS: INSULIN -REGULAR HUMAN 50 UNIT/0.5 ML ML SQ SCH ×4 (07:30→21:00)
[2020-04-01] MEDS: SMZ./TMP. 800/160 MG TABLET PO SCH ×2 (08:00→19:29)
[2020-04-01] MEDS: CRANBERRY FRUIT EXTRACT 200 MG CAP PO SCH ×2 (08:52→19:29)
[2020-04-01] MEDS: NICOTINE 21 MG/PAT TD SCH (08:52)
[2020-04-01] MEDS: METFORMIN HCL 500 MG TAB PO SCH ×2 (08:53→17:04)
[2020-04-01] MEDS: APIXABAN 2.5 MG TABLET PO SCH ×2 (08:53→19:30)
[2020-04-01] MEDS: VITAMIN D 5,000 UNIT CAP PO SCH (08:53)
[2020-04-01] MEDS: GABAPENTIN 100 MG CAP PO SCH ×2 (08:53→19:30)
[2020-04-01] MEDS: FENOFIBRATE 160 MG TAB PO SCH (08:54)
[2020-04-01] MEDS: HYDROCODONE/APAP 5/325 MG TAB PO PRN ×2 (08:54→20:01)
--- NOTE | 2020-04-01 17:44 | R.PN ---
PROGRESS NOTES ENCOUNTER DATE AND TIME: 04/01/2020 17:40 (CDT) NAME NICOLAS LAGUNA DATE OF : 1970 DATE OF ADMISSION: 03/24/2020 17:23 (CDT) BEGNIGN NEOPLASM OF THE SPINAL MENINGESCHIEF COMPLAINT: Spinal cord compression, status post decompression. SUBJECTIVE: Pt denied any depression. Pt denied any Shortness of Breath. She has improved lower extremity sensory deficits and weakness following thoracic cord decompression. WBC 11.3, neutrophils 56.8%, prealbumin 31.3, Na is 135, Working Supervisor is 0.67, UA negative for UTI, COVID-19 n egative. Ambulated 470' with standby assistance using a rolling walker. Up and down 15 steps with standby assi stance. Self-propelled wheelchair 500' with independence. Eliquis 2.5 mg twice daily. 0 VITAL SIGNS Temperature: 97.8 F SBP/DBP: 127/67 Pulse: 88 Resp: 16 MEDICATION ALLERGIES: INDOCIN TETRACYCLINES ENVIRONMENTAL ALLERGIES: - Substance Allergies None Known - Other Allergies None Known NURSING: - Shower allowing shower - Lab Results blood Sugar Check ACHS - Bladder care per protocol - Skin care per protocol PRECAUTIONS: - Weight Bearing Precaution WBAT both LE ACTIVITIES OOB only with supervision THERAPIES: - Orthotics/Prosthetics Orthotic Evaluation. Splinting/Casting. - Dietary and Nutrition Adequate Nutrition. Nutritional Education. Nutritional Supplements. PHYSICAL EXAM - Gen Alert and awake Lying in bed No apparent distress Oriented to: person, time, and place - Skin Thoracic spinal incision is healing well. No abnormalities - Eyes No abnormalities - ENMT No abnormalities - Neck No abnormalities - CVS RRR - Chest No abnormalities - Resp Clear to auscultation - Abd + bowel sounds - GI nondistended Deferred - No abnormalities - Ext Mild bilateral lower extremity edema. - MSK 4+/5 weakness in both lower extremities. - Neuro 4/5 strength bilaterally lower extremities. - Psych No abnormalities ASSESSMENT: Pt. is a 50 yo Right-handed female of unknown race.On 03/17/2020 she was admitted to [facility] with diagnosis BEGNIGN NEOPLASM OF THE SPINAL MENINGES.Her impairment category is Spinal Cord Dysfun ction 04 - Paraplegia, Unspecified (04.110).Pre-morbidly, Pt. was independent/mod-I in Locomotion, B alance, Safety Awareness, Transfers Control, Self-Care, and Communication; and she had good Endurance and Social Cognition.Currently, she has deficits of Locomotion, Balance, Transfers Control, Sphincte r Control, and Endurance.Pt. is now referred to [facility] for acute in-patien t rehabilitation in order to maximize patient's functional independence in activities of daily living , strength, ROM, and mobility.- Rehab Goal Patient has realistic goal of being discharged at assistance level 7-Ind to reside at Home with Pt s elf. MDM/PLAN: - Physical Therapy Gait dysfunction - to improve, our physical therapists will perform initial evaluation of pt's statu s upon admission and devise an individualized program for Gait Training, and Wheel Chair mobility Inability to transfer - to improve, our physical therapists will perform initial evaluation of pt's status upon admission and devise an individualized program for Bed mobility Need for home safety evaluation - to improve, our physical therapists will perform initial evaluatio n of pt's status upon admission and devise an individualized program for Home Evaluation Need in caregiver upon discharge - to improve, our physical therapists will perform initial evaluati on of pt's status upon admission and devise an individualized program for Caregiver Training New precaution - to improve, our physical therapists will perform initial evaluation of pt's status upon admission and devise an individualized program for Patient precaution education Edema - to improve, our physical therapists will perform initial evaluation of pt's status upon admi ssion and devise an individualized program for Elevation Training, and Lymphedema Therapy Poor balance - to improve, our physical therapists will perform initial evaluation of pt's status up on admission and devise an individualized program for Balance Training Poor endurance - to improve, our physical therapists will perform initial evaluation of pt's status upon admission and devise an individualized program for Endurance Training Weakness - to improve, our physical therapists will perform initial evaluation of pt's status upon a dmission and devise an individualized program for Aquatic Therapy, Neuromuscular Reeducation, and Str engthening Achieving independence - to improve, our physical therapists will perform initial evaluation of pt's status upon admission and devise an individualized program for Community Reintegration Activities - Occupational Therapy Need for ostomy care nurse - to improve, our occupation therapists will perform initial evaluation of pt's status upon admission and devise an individualized program for Caregiver Training Weakness - to improve, our occupation therapists will perform initial evaluation of pt's status upon admission and devise an individualized program for Aquatic Therapy, Balance, Endurance, UE ROM, and UE strengthening - Other See attached MAR (Medication Administration Record) - Diet Type Continue Regular - Diet - Liquid Texture Continue Regular - Tube Feed Continue N/A - Lab Results blood Sugar Check ACHS - Bladder care per protocol - Weight Bearing Precaution WBAT both LE - Skin care per protocol - Diet - Solid Texture Continue Regular - Shower allowing shower FUNCTIONAL STATUS: UPDATED AT WEEKLY TEAM CONFERENCE - Bladder Same accident frequency: 7-Ind - No accidents in the past 7 days - Bowel Same accident frequency: 7-Ind - No accidents in the past 7 days - Walking Same score based on distance walked: 0(N/A) - Wheelchair Same score based on distance traveled: 0(N/A) FUNCTIONAL STATUS: - Self-Care A. Eating Ind B. Grooming Santiago C. Bathing Bernabe D. Dressing - Upper Bernabe E. Dressing - Lower modA F. Toileting Bernabe - Sphincter Control G. Bladder control Santiago H. Bowel control Santiago - Transfers Control I. Bed/Chair/Wheelchair Bernabe J. Toilet Bernabe K. Tub/Shower modA - Locomotion L. Walk/Wheelchair (B) Bernabe M. Stairs ADNO - Communication N. Comprehension (B) Santiago O. Expression (B) Santiago - Social Cognition P. Social Interaction Ind Q. Problem Solving Ind R. Memory Ind - Endurance Good - Balance Fair - Safety Awareness Good QI SCORES: - Self-Care A. Eating 03-Partial/moderate assistance B. Oral hygiene 03-Partial/moderate assistance C. Toileting hygiene 03-Partial/moderate assistance E. Shower/bathe self 03-Partial/moderate assistance F. Upper body dressing 03-Partial/moderate assistance G. Lower body dressing 03-Partial/moderate assistance H. Putting on/taking off footwear 88-Not attempted due to medical condition or safety concerns - Mobility A. Roll left and right 03-Partial/moderate assistance B. Sit to lying 03-Partial/moderate assistance C. Lying to sitting on side of bed 03-Partial/moderate assistance D. Sit to stand 03-Partial/moderate assistance E. Chair/ohg-by-jhzjt transfer 03-Partial/moderate assistance F. Toilet transfer 03-Partial/moderate assistance G. Car transfer 88-Not attempted due to medical condition or safety concerns I. Walk 10 feet 88-Not attempted due to medical condition or safety concerns J. Walk 50 feet with two turns 88-Not attempted due to medical condition or safety concerns K. Walk 150 feet 88-Not attempted due to medical condition or safety concerns L. Walking 10 feet on uneven surfaces 88-Not attempted due to medical condition or safety concerns M. 1 step (curb) 88-Not attempted due to medical condition or safety concerns N. 4 steps 88-Not attempted due to medical condition or safety concerns O. 12 steps 88-Not attempted due to medical condition or safety concerns P. Picking up object 88-Not attempted due to medical condition or safety concerns R. Wheel 50 feet with two turns 88-Not attempted due to medical condition or safety concerns S. Wheel 150 feet 88-Not attempted due to medical condition or safety concerns - Bladder and Bowel Bladder continence Bowel continence - Endurance Fair - Balance Fair - Safety Awareness Fair [facility]RENT [facility]. DEFICITS: Self-Care, Mobility, Endurance, Balance, and Safety Awareness SIGNATURE PANEL: (CDT)
[2020-04-01] MEDS: ATORVASTATIN 20 MG TAB PO SCH (20:00)
[2020-04-01] MEDS: terbinafine HCL 250 MG TAB PO SCH (20:00)
[2020-04-01] MEDS: FLUOXETINE 10 MG CAP PO SCH (20:00)
[2020-04-02] MEDS: INSULIN -REGULAR HUMAN 50 UNIT/0.5 ML ML SQ SCH ×4 (07:30→20:05)
[2020-04-02] MEDS: VITAMIN D 5,000 UNIT CAP PO SCH (07:58)
[2020-04-02] MEDS: METFORMIN HCL 500 MG TAB PO SCH ×2 (07:58→17:11)
[2020-04-02] MEDS: CRANBERRY FRUIT EXTRACT 200 MG CAP PO SCH ×2 (07:58→20:05)
[2020-04-02] MEDS: APIXABAN 2.5 MG TABLET PO SCH ×2 (07:59→20:05)
[2020-04-02] MEDS: NICOTINE 21 MG/PAT TD SCH (07:59)
[2020-04-02] MEDS: FENOFIBRATE 160 MG TAB PO SCH (07:59)
[2020-04-02] MEDS: GABAPENTIN 100 MG CAP PO SCH ×2 (07:59→20:05)
[2020-04-02] MEDS: SMZ./TMP. 800/160 MG TABLET PO SCH ×2 (07:59→20:05)
[2020-04-02] MEDS: HYDROCODONE/APAP 5/325 MG TAB PO PRN ×2 (08:35→20:05)
--- NOTE | 2020-04-02 17:43 | R.PN ---
PROGRESS NOTES ENCOUNTER DATE AND TIME: 04/02/2020 17:39 (CDT) NAME NICOLAS LAGUNA DATE OF : 1970 DATE OF ADMISSION: 03/24/2020 17:23 (CDT) BEGNIGN NEOPLASM OF THE SPINAL MENINGESCHIEF COMPLAINT: Spinal cord compression, status post decompression. SUBJECTIVE: Pt denied any depression. Pt denied any Shortness of Breath. She has improved lower extremity sensory deficits and weakness following thoracic cord decompression. WBC 11.3, neutrophils 56.8%, prealbumin 31.3, Na is 135, Nursing Home Social Worker is 0.67, UA negative for UTI, COVID-19 n egative. Ambulated 750' with standby assistance using a rolling walker. Self-propelled wheelchair 250' with in dependence. Eliquis 2.5 mg twice daily. VITAL SIGNS Temperature: 97.8 F SBP/DBP: 103/61 Pulse: 82 Resp: 16 MEDICATION ALLERGIES: INDOCIN TETRACYCLINES ENVIRONMENTAL ALLERGIES: - Substance Allergies None Known - Other Allergies None Known NURSING: - Shower allowing shower - Lab Results blood Sugar Check ACHS - Bladder care per protocol - Skin care per protocol PRECAUTIONS: - Weight Bearing Precaution WBAT both LE ACTIVITIES OOB only with supervision THERAPIES: - Orthotics/Prosthetics Orthotic Evaluation. Splinting/Casting. - Dietary and Nutrition Adequate Nutrition. Nutritional Education. Nutritional Supplements. PHYSICAL EXAM - Gen Alert and awake Lying in bed No apparent distress Oriented to: person, time, and place - Skin Thoracic spinal incision is healing well. No abnormalities - Eyes No abnormalities - ENMT No abnormalities - Neck No abnormalities - CVS RRR - Chest No abnormalities - Resp Clear to auscultation - Abd + bowel sounds - GI nondistended Deferred - No abnormalities - Ext Mild bilateral lower extremity edema. - MSK 4+/5 weakness in both lower extremities. - Neuro 4/5 strength bilaterally lower extremities. - Psych No abnormalities ASSESSMENT: Pt. is a 50 yo Right-handed female of unknown race.On 03/17/2020 she was admitted to [facility] with diagnosis BEGNIGN NEOPLASM OF THE SPINAL MENINGES.Her impairment category is Spinal Cord Dysfun ction 04 - Paraplegia, Unspecified (04.110).Pre-morbidly, Pt. was independent/mod-I in Locomotion, B alance, Safety Awareness, Transfers Control, Self-Care, and Communication; and she had good Endurance and Social Cognition.Currently, she has deficits of Locomotion, Balance, Transfers Control, Sphincte r Control, and Endurance.Pt. is now referred to [facility] for acute in-patien t rehabilitation in order to maximize patient's functional independence in activities of daily living , strength, ROM, and mobility.- Rehab Goal Patient has realistic goal of being discharged at assistance level 7-Ind to reside at Home with Pt s elf. MDM/PLAN: - Physical Therapy Gait dysfunction - to improve, our physical therapists will perform initial evaluation of pt's statu s upon admission and devise an individualized program for Gait Training, and Wheel Chair mobility Inability to transfer - to improve, our physical therapists will perform initial evaluation of pt's status upon admission and devise an individualized program for Bed mobility Need for home safety evaluation - to improve, our physical therapists will perform initial evaluatio n of pt's status upon admission and devise an individualized program for Home Evaluation Need in caregiver upon discharge - to improve, our physical therapists will perform initial evaluati on of pt's status upon admission and devise an individualized program for Caregiver Training New precaution - to improve, our physical therapists will perform initial evaluation of pt's status upon admission and devise an individualized program for Patient precaution education Edema - to improve, our physical therapists will perform initial evaluation of pt's status upon admi ssion and devise an individualized program for Elevation Training, and Lymphedema Therapy Poor balance - to improve, our physical therapists will perform initial evaluation of pt's status up on admission and devise an individualized program for Balance Training Poor endurance - to improve, our physical therapists will perform initial evaluation of pt's status upon admission and devise an individualized program for Endurance Training Weakness - to improve, our physical therapists will perform initial evaluation of pt's status upon a dmission and devise an individualized program for Aquatic Therapy, Neuromuscular Reeducation, and Str engthening Achieving independence - to improve, our physical therapists will perform initial evaluation of pt's status upon admission and devise an individualized program for Community Reintegration Activities - Occupational Therapy Need for progressive care manager - to improve, our occupation therapists will perform initial evaluation of pt's status upon admission and devise an individualized program for Caregiver Training Weakness - to improve, our occupation therapists will perform initial evaluation of pt's status upon admission and devise an individualized program for Aquatic Therapy, Balance, Endurance, UE ROM, and UE strengthening - Other See attached MAR (Medication Administration Record) - Diet Type Continue Regular - Diet - Liquid Texture Continue Regular - Tube Feed Continue N/A - Lab Results blood Sugar Check ACHS - Bladder care per protocol - Weight Bearing Precaution WBAT both LE - Skin care per protocol - Diet - Solid Texture Continue Regular - Shower allowing shower FUNCTIONAL STATUS: UPDATED AT WEEKLY TEAM CONFERENCE - Bladder Same accident frequency: 7-Ind - No accidents in the past 7 days - Bowel Same accident frequency: 7-Ind - No accidents in the past 7 days - Walking Same score based on distance walked: 0(N/A) - Wheelchair Same score based on distance traveled: 0(N/A) FUNCTIONAL STATUS: - Self-Care A. Eating Ind B. Grooming Santiago C. Bathing Bernabe D. Dressing - Upper Bernabe E. Dressing - Lower modA F. Toileting Bernabe - Sphincter Control G. Bladder control Santiago H. Bowel control Santiago - Transfers Control I. Bed/Chair/Wheelchair Bernabe J. Toilet Bernabe K. Tub/Shower modA - Locomotion L. Walk/Wheelchair (B) Bernabe M. Stairs ADNO - Communication N. Comprehension (B) Santiago O. Expression (B) Santiago - Social Cognition P. Social Interaction Ind Q. Problem Solving Ind R. Memory Ind - Endurance Good - Balance Fair - Safety Awareness Good QI SCORES: - Self-Care A. Eating 03-Partial/moderate assistance B. Oral hygiene 03-Partial/moderate assistance C. Toileting hygiene 03-Partial/moderate assistance E. Shower/bathe self 03-Partial/moderate assistance F. Upper body dressing 03-Partial/moderate assistance G. Lower body dressing 03-Partial/moderate assistance H. Putting on/taking off footwear 88-Not attempted due to medical condition or safety concerns - Mobility A. Roll left and right 03-Partial/moderate assistance B. Sit to lying 03-Partial/moderate assistance C. Lying to sitting on side of bed 03-Partial/moderate assistance D. Sit to stand 03-Partial/moderate assistance E. Chair/[id number] transfer 03-Partial/moderate assistance F. Toilet transfer 03-Partial/moderate assistance G. Car transfer 88-Not attempted due to medical condition or safety concerns I. Walk 10 feet 88-Not attempted due to medical condition or safety concerns J. Walk 50 feet with two turns 88-Not attempted due to medical condition or safety concerns K. Walk 150 feet 88-Not attempted due to medical condition or safety concerns L. Walking 10 feet on uneven surfaces 88-Not attempted due to medical condition or safety concerns M. 1 step (curb) 88-Not attempted due to medical condition or safety concerns N. 4 steps 88-Not attempted due to medical condition or safety concerns O. 12 steps 88-Not attempted due to medical condition or safety concerns P. Picking up object 88-Not attempted due to medical condition or safety concerns R. Wheel 50 feet with two turns 88-Not attempted due to medical condition or safety concerns S. Wheel 150 feet 88-Not attempted due to medical condition or safety concerns - Bladder and Bowel Bladder continence Bowel continence - Endurance Fair - Balance Fair - Safety Awareness Fair CURRENT [facility]. DEFICITS: Self-Care, Mobility, Endurance, Balance, and Safety Awareness SIGNATURE PANEL: (CDT)
[2020-04-02] MEDS: FLUOXETINE 10 MG CAP PO SCH (20:05)
[2020-04-02] MEDS: terbinafine HCL 250 MG TAB PO SCH (20:05)
[2020-04-02] MEDS: ATORVASTATIN 20 MG TAB PO SCH (20:05)
[2020-04-03 06:27] LABS: Absolute Lymphocytes (CBC) 3.4 K/uL (0.7-4.9); Hematocrit 39.4 % (36.0-45.0); Lymphocytes % 31.7 % (15.3-44.8); MPV 7.8 fL (7.6-11.3); RBC Red Blood Cell Count 4.36 M/uL (3.86-4.86)
[2020-04-03 06:49] LABS: Albumin 3.2 g/dL (3.4-5.0); Magnesium 2.2 mg/dL (1.8-2.4); Prealbumin 33.7 mg/dL (20-40)
[2020-04-03] MEDS: INSULIN -REGULAR HUMAN 50 UNIT/0.5 ML ML SQ SCH ×4 (07:30→20:21)
[2020-04-03] MEDS: HYDROCODONE/APAP 5/325 MG TAB PO PRN ×2 (08:00→20:20)
[2020-04-03] MEDS: SMZ./TMP. 800/160 MG TABLET PO SCH (08:02)
[2020-04-03] MEDS: CRANBERRY FRUIT EXTRACT 200 MG CAP PO SCH ×2 (08:02→20:08)
[2020-04-03] MEDS: VITAMIN D 5,000 UNIT CAP PO SCH (08:02)
[2020-04-03] MEDS: FENOFIBRATE 160 MG TAB PO SCH (08:02)
[2020-04-03] MEDS: APIXABAN 2.5 MG TABLET PO SCH ×2 (08:03→20:08)
[2020-04-03] MEDS: GABAPENTIN 100 MG CAP PO SCH ×2 (08:03→20:08)
[2020-04-03] MEDS: METFORMIN HCL 500 MG TAB PO SCH ×2 (08:03→17:24)
--- NOTE | 2020-04-03 10:08 | P.RH.PN ---
Estimated Length of Stay: 17 Expected Discharge Date: 04/09/20 Discharge Disposition Plan: Home Family Support: Yes Residential Goal: Mobility, Transfers, Self Care Vital Signs: Last Vital Signs Temp 97.2 F 04/03/20 08:00 Pulse 72 04/03/20 08:00 Resp 16 04/03/20 08:00 BP 109/56 L 04/03/20 08:00 Pulse Ox 100 04/03/20 08:00 Laboratory: Laboratory Last Values WBC 10.7 K/uL (4.3-10.9) 04/03/20 06:11 RBC 4.36 M/uL (3.86-4.86) 04/03/20 06:11 Hgb 13.3 g/dL (12.0-15.0) 04/03/20 06:11 Hct 39.4 % (36.0-45.0) 04/03/20 06:11 MCV 90.4 fL (80-100) 04/03/20 06:11 MCH 30.5 pg (27.0-35.0) 04/03/20 06:11 MCHC 33.8 g/dL (32.0-36.0) 04/03/20 06:11 RDW 14.9 % (12.1-15.2) 04/03/20 06:11 Plt Count 376 K/uL (152-406) 04/03/20 06:11 MPV 7.8 fL (7.6-11.3) 04/03/20 06:11 Neutrophils % 57.9 % (41.7-73.7) 04/03/20 06:11 Lymphocytes % 31.7 % (15.3-44.8) 04/03/20 06:11 Monocytes % 6.3 % (3.3-12.3) 04/03/20 06:11 Eosinophils % 3.1 % (0-4.4) 04/03/20 06:11 Basophils % 1.0 % (0-1.3) 04/03/20 06:11 Absolute Neutrophils 6.2 K/uL (1.8-8.0) 04/03/20 06:11 Absolute Lymphocytes 3.4 K/uL (0.7-4.9) 04/03/20 06:11 Absolute Monocytes 0.7 K/uL (0.1-1.3) 04/03/20 06:11 Absolute Eosinophils 0.3 K/uL (0-0.5) 04/03/20 06:11 Absolute Basophils 0.1 K/uL (0-0.5) 04/03/20 06:11 Sodium 139 mmol/L (136-145) 04/03/20 06:11 Potassium 4.0 mmol/L (3.5-5.1) 04/03/20 06:11 Chloride 107 mmol/L (98-107) 04/03/20 06:11 Carbon Dioxide 24 mmol/L (21-32) 04/03/20 06:11 BUN 20 mg/dL (7-18) H 04/03/20 06:11 Creatinine 0.85 mg/dL (0.55-1.3) 04/03/20 06:11 Estimated GFR 71 mL/min (=/>90) L 04/03/20 06:11 Glucose 158 mg/dL (74-106) H 04/03/20 06:11 Calcium 9.3 mg/dL (8.5-10.1) 04/03/20 06:11 Magnesium 2.2 mg/dL (1.8-2.4) 04/03/20 06:11 Albumin 3.2 g/dL (3.4-5.0) L 04/03/20 06:11 Prealbumin 33.7 mg/dL (20-40) 04/03/20 06:11 Urine Color Yellow 03/25/20 20:10 Urine Appearance Clear 03/25/20 20:10 Urine pH 6.0 (5.0-7.0) 03/25/20 20:10 Ur Specific [place] >=1.030 (1.005-1.030) 03/25/20 20:10 Glucose (UA)(Auto) 3+ (NEG) H 03/25/20 20:10 Urine Ketones Negative (NEG) 03/25/20 20:10 Urine Blood Negative (NEG) 03/25/20 20:10 Urine Nitrite Negative (NEG) 03/25/20 20:10 Urine Bilirubin Negative (NEG) 03/25/20 20:10 Urine Urobilinogen 0.2 mg/dL (0.2-1.0) 03/25/20 20:10 Ur Leukocyte Esterase Negative (NEG) 03/25/20 20:10 Urine RBC 5-10 /HPF (NONE SEEN) H 03/25/20 20:10 Urine WBC 5-10 /HPF (<5) H 03/25/20 20:10 Ur Squamous Epith Cells <5 /HPF (NONE SEEN) 03/25/20 20:10 Urine Bacteria <20 /HPF (<20) 03/25/20 20:10 Urine Mucus 1+ /HPF (NONE SEEN) 03/25/20 20:10 Urine Culture Reflexed Not needed 03/25/20 20:10 Urine Total Protein Negative (NEG) 03/25/20 20:10 SARS-CoV-2 RNA (RT-PCR) Negative (NEGATIVE) 03/25/20 09:05 Weight: 230 lb Wound Present: No Closed Surgical Incision Present: Yes Negative Pressure Wound Therapy Present: No Physician Update: Labs are stable. She is at standby assistance walking 250', up and down 15 stairs. She has some burning pain in her feet and legs with a lot of walking. She cooked for 4 hours. She needs standby assistance in the kitchen for safety and stability. She did ADLs with stanby assistance. Medical Issues: HX: DM. SX: CARPAL TUNNEL, , CHOLECYSTECTOMY, HAND SX, LAMINOPLASTY, LYMPHADENECTOMY, RHINOPLASTY Pain Issues: TAKING GABAPENTIN, NORCO FOR PAIN. Functional Improvement: pt is demonstrating good progress with her therapy. pt has improved functional strength and balance during activity. pt continues to exhibit some gait instability and requries verbal cuing for safety at times. pt continues to require further strength training and balance training to enhance functional performance and safety. Summary: Patient's care plan and usp goals have been reviewed and revised as necessary. Please see the Rehabilitation Signature page for all necessary signatures.
[2020-04-03] MEDS: NICOTINE 21 MG/PAT TD SCH (10:29)
[2020-04-03] MEDS ORDERED: BISACODYL 10 MG RECTAL SUPP PR PRN (12:51)
[2020-04-03] MEDS ORDERED: POLYETHYL GLY 3350 17 GM/DOSE PO PRN (12:51)
[2020-04-03] MEDS: terbinafine HCL 250 MG TAB PO SCH (20:09)
[2020-04-03] MEDS: ATORVASTATIN 20 MG TAB PO SCH (20:10)
[2020-04-03] MEDS: FLUOXETINE 10 MG CAP PO SCH (20:10)
[2020-04-04 05:32] VITALS: BMI 37.6
[2020-04-04] MEDS: INSULIN -REGULAR HUMAN 50 UNIT/0.5 ML ML SQ SCH ×4 (07:30→20:49)
[2020-04-04] MEDS: GABAPENTIN 100 MG CAP PO SCH ×2 (09:04→20:48)
[2020-04-04] MEDS: CRANBERRY FRUIT EXTRACT 200 MG CAP PO SCH ×2 (09:04→20:48)
[2020-04-04] MEDS: APIXABAN 2.5 MG TABLET PO SCH ×2 (09:05→20:48)
[2020-04-04] MEDS: NICOTINE 21 MG/PAT TD SCH (09:05)
[2020-04-04] MEDS: VITAMIN D 5,000 UNIT CAP PO SCH (09:05)
[2020-04-04] MEDS: METFORMIN HCL 500 MG TAB PO SCH ×2 (09:05→16:51)
[2020-04-04] MEDS: FENOFIBRATE 160 MG TAB PO SCH (09:05)
[2020-04-04] MEDS: HYDROCODONE/APAP 5/325 MG TAB PO PRN ×2 (09:09→20:59)
[2020-04-04] MEDS: FLUOXETINE 10 MG CAP PO SCH (20:48)
[2020-04-04] MEDS: terbinafine HCL 250 MG TAB PO SCH (20:48)
[2020-04-04] MEDS: ATORVASTATIN 20 MG TAB PO SCH (20:49)
[2020-04-05] MEDS: INSULIN -REGULAR HUMAN 50 UNIT/0.5 ML ML SQ SCH ×4 (07:30→19:44)
[2020-04-05] MEDS: CRANBERRY FRUIT EXTRACT 200 MG CAP PO SCH ×2 (08:12→19:42)
[2020-04-05] MEDS: METFORMIN HCL 500 MG TAB PO SCH ×2 (08:13→16:53)
[2020-04-05] MEDS: VITAMIN D 5,000 UNIT CAP PO SCH (08:13)
[2020-04-05] MEDS: FENOFIBRATE 160 MG TAB PO SCH (08:13)
[2020-04-05] MEDS: NICOTINE 21 MG/PAT TD SCH (08:13)
[2020-04-05] MEDS: GABAPENTIN 100 MG CAP PO SCH ×2 (08:13→19:42)
[2020-04-05] MEDS: APIXABAN 2.5 MG TABLET PO SCH ×2 (08:13→19:42)
[2020-04-05] MEDS: HYDROCODONE/APAP 5/325 MG TAB PO PRN ×2 (08:14→19:42)
[2020-04-05] MEDS: ATORVASTATIN 20 MG TAB PO SCH (19:42)
[2020-04-05] MEDS: FLUOXETINE 10 MG CAP PO SCH (19:42)
[2020-04-06] MEDS: INSULIN -REGULAR HUMAN 50 UNIT/0.5 ML ML SQ SCH ×4 (07:30→20:32)
[2020-04-06] MEDS: METFORMIN HCL 500 MG TAB PO SCH ×2 (08:08→17:10)
[2020-04-06] MEDS: GABAPENTIN 100 MG CAP PO SCH ×2 (08:08→20:29)
[2020-04-06] MEDS: APIXABAN 2.5 MG TABLET PO SCH ×2 (08:08→20:29)
[2020-04-06] MEDS: FENOFIBRATE 160 MG TAB PO SCH (08:08)
[2020-04-06] MEDS: CRANBERRY FRUIT EXTRACT 200 MG CAP PO SCH ×2 (08:08→20:29)
[2020-04-06] MEDS: VITAMIN D 5,000 UNIT CAP PO SCH (08:08)
[2020-04-06] MEDS: HYDROCODONE/APAP 5/325 MG TAB PO PRN ×2 (08:09→20:29)
[2020-04-06] MEDS: NICOTINE 21 MG/PAT TD SCH (08:10)
--- NOTE | 2020-04-06 16:04 | FAST ---
[employer] FORM SHIFT START DATE/TIME: 04/06/2020 07:00 (MEAT CURER) SHIFT END DATE/TIME: 04/06/2020 19:00 (MEAT CURER) NAME NICOLAS LAGUNA DATE OF : 1970 DATE OF ADMISSION: 03/24/2020 17:23 (CDT) PHONE: AGE: 50 N# [id number] GENDER: Female ENCOUNTER PHYSICIAN: Dr. Erick Bosch M.D. ADMISSION DIAGNOSIS: - Spinal Cord Dysfunction 04 - Paraplegia, Unspecified (04.110) BEGNIGN NEOPLASM OF THE SPINAL MENINGES. EATING: EATING - STEP 1: Does the patient complete the activity by him/herself with no assistance (physical, verbal/nonverbal cueing, setup/clean-up)? No. EATING - STEP 2: Does the patient need only setup/clean-up assistance from one helper? Yes. 1. [id number] ADMISSION PERFORMANCE: Setup or clean-up assistance CODE: 05 ORAL HYGIENE: ORAL HYGIENE - STEP 1: Does the patient complete the activity by him/herself with no assistance (physical, verbal/nonverbal cueing, setup/clean-up)? No. ORAL HYGIENE - STEP 2: Does the patient need only setup/clean-up assistance from one helper? Yes. 1. [id number] ADMISSION PERFORMANCE: Setup or clean-up assistance CODE: 05 TOILETING HYGIENE: TOILETING HYGIENE - STEP 1: Does the patient complete the activity by him/herself with no assistance (physical, verbal/nonverbal cueing, setup/clean-up)? No. TOILETING HYGIENE - STEP 2: Does the patient need only setup/clean-up assistance from one helper? Yes. 1. [id number] ADMISSION PERFORMANCE: Setup or clean-up assistance CODE: 05 BATHING: Not assessed/no information CODE: - DRESSING - UPPER BODY: DRESSING - UPPER BODY - STEP 1: Does the patient complete the activity by him/herself with no assistance (physical, verbal/nonverbal cueing, setup/clean-up)? No. DRESSING - UPPER BODY - STEP 2: Does the patient need only setup/clean-up assistance from one helper? Yes. 1. [id number] ADMISSION PERFORMANCE: Setup or clean-up assistance CODE: 05 DRESSING - LOWER BODY: DRESSING - LOWER BODY - STEP 1: Does the patient complete the activity by him/herself with no assistance (physical, verbal/nonverbal cueing, setup/clean-up)? No. DRESSING - LOWER BODY - STEP 2: Does the patient need only setup/clean-up assistance from one helper? Yes. 1. [id number] ADMISSION PERFORMANCE: Setup or clean-up assistance CODE: 05 PUTTING ON/TAKING OFF FOOTWEAR: FOOTWEAR - STEP 1: Does the patient complete the activity by him/herself with no assistance (physical, verbal/nonverbal cueing, setup/clean-up)? No. FOOTWEAR - STEP 2: Does the patient need only setup/clean-up assistance from one helper? Yes. 1. [id number] ADMISSION PERFORMANCE: Setup or clean-up assistance CODE: 05 ROLL LEFT AND RIGHT: ROLL LEFT AND RIGHT - STEP 1: Does the patient complete the activity by him/herself with no assistance (physical, verbal/nonverbal cueing, setup/clean-up)? Yes. 1. [id number] ADMISSION PERFORMANCE: Independent CODE: 06 SIT TO LYING: SIT TO LYING - STEP 1: Does the patient complete the activity by him/herself with no assistance (physical, verbal/nonverbal cueing, setup/clean-up)? Yes. 1. [id number] ADMISSION PERFORMANCE: Independent CODE: 06 LYING TO SITTING: LYING TO SITTING ON SIDE OF BED - STEP 1: Does the patient complete the activity by him/herself with no assistance (physical, verbal/nonverbal cueing, setup/clean-up)? Yes. 1. [id number] ADMISSION PERFORMANCE: Independent CODE: 06 SIT TO STAND: SIT TO STAND - STEP 1: Does the patient complete the activity by him/herself with no assistance (physical, verbal/nonverbal cueing, setup/clean-up)? Yes. 1. [id number] ADMISSION PERFORMANCE: Independent CODE: 06 TRANSFERS: BED, CHAIR: CHAIR/[id number] TRANSFER - STEP 1: Does the patient complete the activity by him/herself with no assistance (physical, verbal/nonverbal cueing, setup/clean-up)? Yes. 1. [id number] ADMISSION PERFORMANCE: Independent CODE: 06 TRANSFER TOILET: TOILET TRANSFER - STEP 1: Does the patient complete the activity by him/herself with no assistance (physical, verbal/nonverbal cueing, setup/clean-up)? Yes. 1. [id number] ADMISSION PERFORMANCE: Independent CODE: 06 TRANSFERS: CAR: Not assessed/no information CODE: - WALK 10 FEET: Not assessed/no information CODE: - 1 STEP (CURB): Not assessed/no information CODE: - PICKING UP OBJECT: Not assessed/no information CODE: - DOES THE PATIENT USE A WHEELCHAIR/SCOOTER? Q1. DOES THE PATIENT USE A WHEELCHAIR/SCOOTER?: Yes CODE: 1 WHEEL 50 FEET WITH TWO TURNS: WHEEL 50 FEET WITH TWO TURNS - STEP 1: Does the patient complete the activity by him/herself with no assistance (physical, verbal/nonverbal cueing, setup/clean-up)? Yes. 1. [id number] ADMISSION PERFORMANCE: Independent CODE: 06 INDICATE THE TYPE OF WHEELCHAIR/SCOOTER USED: RR1. INDICATE THE TYPE OF WHEELCHAIR/SCOOTER USED.: Manual CODE: 1 WHEEL 150 FEET: WHEEL 150 FEET - STEP 1: Does the patient complete the activity by him/herself with no assistance (physical, verbal/nonverbal cueing, setup/clean-up)? No. WHEEL 150 FEET - STEP 2: Does the patient need only setup/clean-up assistance from one helper? No. WHEEL 150 FEET - STEP 3: Does the patient need only verbal/nonverbal cueing or touching/steadying/contact guard assistance fro m one helper? Yes. 1. [id number] ADMISSION PERFORMANCE: Supervision or touching assistance CODE: 04 INDICATE THE TYPE OF WHEELCHAIR/SCOOTER USED: SS1. INDICATE THE TYPE OF WHEELCHAIR/SCOOTER USED.: Manual CODE: 1 BLADDER AND BOWEL: H350. BLADDER CONTINENCE (3-DAY ASSESSMENT PERIOD): Stress incontinence only CODE: 1 H400. BOWEL CONTINENCE (3-DAY ASSESSMENT PERIOD): Always continent CODE: 0 SIGNATURE PANEL: The following modified sections: 1. [id number] Admission Performance, 1. [id number] Admission Performance, 1. [id number] Admission Performance, 1. [id number] Admission Performance, 1. [id number] Admission Performance, 1. [id number] Admission Performance, 1. [id number] Admission Performance, 1. [id number] Admission Performance , 1. [id number] Admission Performance, 1. [id number] Admission Performance, 1. [id number] Admission Performanc e, 1. [id number] Admission Performance, 1. [id number] Admission Performance, 1. [id number] Admission Performan ce, Q1. Does the patient use a wheelchair/scooter?, 1. [id number] Admission Performance, RR1. Indicate t he type of wheelchair/scooter used., 1. [id number] Admission Performance, Code, SS1. Indicate the type o f wheelchair/scooter used., H350. Bladder Continence (3-day assessment period), H400. Bowel Continenc e (3-day assessment period) were [electronically] signed by Thania MoernoNChristiano on MonApr 06 2020 1 6:03:38 GMT-0600 (Central Standard Time)
--- NOTE | 2020-04-06 18:01 | R.PN ---
PROGRESS NOTES ENCOUNTER DATE AND TIME: 04/06/2020 17:57 (ATTORNEY GENERAL) NAME NICOLAS LAGUNA DATE OF : 1970 DATE OF ADMISSION: 03/24/2020 17:23 (CDT) BEGNIGN NEOPLASM OF THE SPINAL MENINGESCHIEF COMPLAINT: Spinal cord compression, status post decompression. SUBJECTIVE: Pt denied any depression. Pt denied any Shortness of Breath. She has improved lower extremity sensory deficits and weakness following thoracic cord decompression. WBC 11.3, neutrophils 56.8%, prealbumin 31.3, Na is 135, Falsework Builder is 0.67, UA negative for UTI, COVID-19 n egative. Ambulated 1350' with independence using a rolling walker. Self-propelled wheelchair 250' with indepen dence. Up and down 20 steps with independence. Eliquis 2.5 mg twice daily. VITAL SIGNS Temperature: 97.6 F SBP/DBP: 124/63 Pulse: 73 Resp: 16 MEDICATION ALLERGIES: INDOCIN TETRACYCLINES ENVIRONMENTAL ALLERGIES: - Substance Allergies None Known - Other Allergies None Known NURSING: - Shower allowing shower - Lab Results blood Sugar Check ACHS - Bladder care per protocol - Skin care per protocol PRECAUTIONS: - Weight Bearing Precaution WBAT both LE ACTIVITIES OOB only with supervision THERAPIES: - Orthotics/Prosthetics Orthotic Evaluation. Splinting/Casting. - Dietary and Nutrition Adequate Nutrition. Nutritional Education. Nutritional Supplements. PHYSICAL EXAM - Gen Alert and awake Lying in bed No apparent distress Oriented to: person, time, and place - Skin Thoracic spinal incision is healing well. No abnormalities - Eyes No abnormalities - ENMT No abnormalities - Neck No abnormalities - CVS RRR - Chest No abnormalities - Resp Clear to auscultation - Abd + bowel sounds - GI nondistended Deferred - No abnormalities - Ext Mild bilateral lower extremity edema. - MSK 4+/5 weakness in both lower extremities. - Neuro 4/5 strength bilaterally lower extremities. - Psych No abnormalities ASSESSMENT: Pt. is a 50 yo Right-handed female of unknown race.On 03/17/2020 she was admitted to [facility] with diagnosis BEGNIGN NEOPLASM OF THE SPINAL MENINGES.Her impairment category is Spinal Cord Dysfun ction 04 - Paraplegia, Unspecified (04.110).Pre-morbidly, Pt. was independent/mod-I in Locomotion, B alance, Safety Awareness, Transfers Control, Self-Care, and Communication; and she had good Endurance and Social Cognition.Currently, she has deficits of Locomotion, Balance, Transfers Control, Sphincte r Control, and Endurance.Pt. is now referred to [facility] for acute in-patien t rehabilitation in order to maximize patient's functional independence in activities of daily living , strength, ROM, and mobility.- Rehab Goal Patient has realistic goal of being discharged at assistance level 7-Ind to reside at Home with Pt s elf. MDM/PLAN: - Physical Therapy Gait dysfunction - to improve, our physical therapists will perform initial evaluation of pt's statu s upon admission and devise an individualized program for Gait Training, and Wheel Chair mobility Inability to transfer - to improve, our physical therapists will perform initial evaluation of pt's status upon admission and devise an individualized program for Bed mobility Need for home safety evaluation - to improve, our physical therapists will perform initial evaluatio n of pt's status upon admission and devise an individualized program for Home Evaluation Need in caregiver upon discharge - to improve, our physical therapists will perform initial evaluati on of pt's status upon admission and devise an individualized program for Caregiver Training New precaution - to improve, our physical therapists will perform initial evaluation of pt's status upon admission and devise an individualized program for Patient precaution education Edema - to improve, our physical therapists will perform initial evaluation of pt's status upon admi ssion and devise an individualized program for Elevation Training, and Lymphedema Therapy Poor balance - to improve, our physical therapists will perform initial evaluation of pt's status up on admission and devise an individualized program for Balance Training Poor endurance - to improve, our physical therapists will perform initial evaluation of pt's status upon admission and devise an individualized program for Endurance Training Weakness - to improve, our physical therapists will perform initial evaluation of pt's status upon a dmission and devise an individualized program for Aquatic Therapy, Neuromuscular Reeducation, and Str engthening Achieving independence - to improve, our physical therapists will perform initial evaluation of pt's status upon admission and devise an individualized program for Community Reintegration Activities - Occupational Therapy Need for child care counselor - to improve, our occupation therapists will perform initial evaluation of pt's status upon admission and devise an individualized program for Caregiver Training Weakness - to improve, our occupation therapists will perform initial evaluation of pt's status upon admission and devise an individualized program for Aquatic Therapy, Balance, Endurance, UE ROM, and UE strengthening - Other See attached MAR (Medication Administration Record) - Diet Type Continue Regular - Diet - Liquid Texture Continue Regular - Tube Feed Continue N/A - Lab Results blood Sugar Check ACHS - Bladder care per protocol - Weight Bearing Precaution WBAT both LE - Skin care per protocol - Diet - Solid Texture Continue Regular - Shower allowing shower FUNCTIONAL STATUS: UPDATED AT WEEKLY TEAM CONFERENCE - Bladder Same accident frequency: 7-Ind - No accidents in the past 7 days - Bowel Same accident frequency: 7-Ind - No accidents in the past 7 days - Walking Same score based on distance walked: 0(N/A) - Wheelchair Same score based on distance traveled: 0(N/A) FUNCTIONAL STATUS: - Self-Care A. Eating Ind B. Grooming Santiago C. Bathing Bernabe D. Dressing - Upper Bernabe E. Dressing - Lower modA F. Toileting Bernabe - Sphincter Control G. Bladder control Santiago H. Bowel control Santiago - Transfers Control I. Bed/Chair/Wheelchair Bernabe J. Toilet Bernabe K. Tub/Shower modA - Locomotion L. Walk/Wheelchair (B) Bernabe M. Stairs ADNO - Communication N. Comprehension (B) Santiago O. Expression (B) Santiago - Social Cognition P. Social Interaction Ind Q. Problem Solving Ind R. Memory Ind - Endurance Good - Balance Fair - Safety Awareness Good QI SCORES: - Self-Care A. Eating 03-Partial/moderate assistance B. Oral hygiene 03-Partial/moderate assistance C. Toileting hygiene 03-Partial/moderate assistance E. Shower/bathe self 03-Partial/moderate assistance F. Upper body dressing 03-Partial/moderate assistance G. Lower body dressing 03-Partial/moderate assistance H. Putting on/taking off footwear 88-Not attempted due to medical condition or safety concerns - Mobility A. Roll left and right 03-Partial/moderate assistance B. Sit to lying 03-Partial/moderate assistance C. Lying to sitting on side of bed 03-Partial/moderate assistance D. Sit to stand 03-Partial/moderate assistance E. Chair/[id number] transfer 03-Partial/moderate assistance F. Toilet transfer 03-Partial/moderate assistance G. Car transfer 88-Not attempted due to medical condition or safety concerns I. Walk 10 feet 88-Not attempted due to medical condition or safety concerns J. Walk 50 feet with two turns 88-Not attempted due to medical condition or safety concerns K. Walk 150 feet 88-Not attempted due to medical condition or safety concerns L. Walking 10 feet on uneven surfaces 88-Not attempted due to medical condition or safety concerns M. 1 step (curb) 88-Not attempted due to medical condition or safety concerns N. 4 steps 88-Not attempted due to medical condition or safety concerns O. 12 steps 88-Not attempted due to medical condition or safety concerns P. Picking up object 88-Not attempted due to medical condition or safety concerns R. Wheel 50 feet with two turns 88-Not attempted due to medical condition or safety concerns S. Wheel 150 feet 88-Not attempted due to medical condition or safety concerns - Bladder and Bowel Bladder continence Bowel continence - Endurance Fair - Balance Fair - Safety Awareness Fair [facility] DEFICITS: Self-Care, Mobility, Endurance, Balance, and Safety Awareness SIGNATURE PANEL: (ATTORNEY GENERAL)
[2020-04-06] MEDS: ATORVASTATIN 20 MG TAB PO SCH (20:29)
[2020-04-06] MEDS: FLUOXETINE 10 MG CAP PO SCH (20:29)
[2020-04-07] MEDS: INSULIN -REGULAR HUMAN 50 UNIT/0.5 ML ML SQ SCH ×4 (07:30→20:16)
[2020-04-07] MEDS: HYDROCODONE/APAP 5/325 MG TAB PO PRN ×2 (08:10→20:15)
[2020-04-07] MEDS: NICOTINE 21 MG/PAT TD SCH (08:10)
[2020-04-07] MEDS: VITAMIN D 5,000 UNIT CAP PO SCH (08:11)
[2020-04-07] MEDS: CRANBERRY FRUIT EXTRACT 200 MG CAP PO SCH ×2 (08:11→20:15)
[2020-04-07] MEDS: FENOFIBRATE 160 MG TAB PO SCH (08:11)
[2020-04-07] MEDS: APIXABAN 2.5 MG TABLET PO SCH ×2 (08:12→20:15)
[2020-04-07] MEDS: GABAPENTIN 100 MG CAP PO SCH ×2 (08:12→20:15)
[2020-04-07] MEDS: METFORMIN HCL 500 MG TAB PO SCH ×2 (08:12→17:13)
--- NOTE | 2020-04-07 17:49 | R.PN ---
PROGRESS NOTES ENCOUNTER DATE AND TIME: 04/07/2020 17:45 (DONATIONS ATTENDANT) NAME NICOLAS LAGUNA DATE OF : 1970 DATE OF ADMISSION: 03/24/2020 17:23 (CDT) BEGNIGN NEOPLASM OF THE SPINAL MENINGESCHIEF COMPLAINT: Spinal cord compression, status post decompression. SUBJECTIVE: Pt denied any depression. Pt denied any Shortness of Breath. She has improved lower extremity sensory deficits and weakness following thoracic cord decompression. WBC 11.3, neutrophils 56.8%, prealbumin 31.3, Na is 135, Media Coordinator is 0.67, UA negative for UTI, COVID-19 n egative. Ambulated 1550' with independence using a rolling walker. Self-propelled wheelchair 250' with indepen dence. Up and down 20 steps with independence. Eliquis 2.5 mg twice daily. VITAL SIGNS Temperature: 97.7 F SBP/DBP: 113/64 Pulse: 82 Resp: 16 MEDICATION ALLERGIES: INDOCIN TETRACYCLINES ENVIRONMENTAL ALLERGIES: - Substance Allergies None Known - Other Allergies None Known NURSING: - Shower allowing shower - Lab Results blood Sugar Check ACHS - Bladder care per protocol - Skin care per protocol PRECAUTIONS: - Weight Bearing Precaution WBAT both LE ACTIVITIES OOB only with supervision THERAPIES: - Orthotics/Prosthetics Orthotic Evaluation. Splinting/Casting. - Dietary and Nutrition Adequate Nutrition. Nutritional Education. Nutritional Supplements. PHYSICAL EXAM - Gen Alert and awake Lying in bed No apparent distress Oriented to: person, time, and place - Skin Thoracic spinal incision is healing well. No abnormalities - Eyes No abnormalities - ENMT No abnormalities - Neck No abnormalities - CVS RRR - Chest No abnormalities - Resp Clear to auscultation - Abd + bowel sounds - GI nondistended Deferred - No abnormalities - Ext Mild bilateral lower extremity edema. - MSK 4+/5 weakness in both lower extremities. - Neuro 4/5 strength bilaterally lower extremities. - Psych No abnormalities ASSESSMENT: Pt. is a 50 yo Right-handed female of unknown race.On 03/17/2020 she was admitted to [facility] with diagnosis BEGNIGN NEOPLASM OF THE SPINAL MENINGES.Her impairment category is Spinal Cord Dysfun ction 04 - Paraplegia, Unspecified (04.110).Pre-morbidly, Pt. was independent/mod-I in Locomotion, B alance, Safety Awareness, Transfers Control, Self-Care, and Communication; and she had good Endurance and Social Cognition.Currently, she has deficits of Locomotion, Balance, Transfers Control, Sphincte r Control, and Endurance.Pt. is now referred to [facility] for acute in-patien t rehabilitation in order to maximize patient's functional independence in activities of daily living , strength, ROM, and mobility.- Rehab Goal Patient has realistic goal of being discharged at assistance level 7-Ind to reside at Home with Pt s elf. MDM/PLAN: - Physical Therapy Gait dysfunction - to improve, our physical therapists will perform initial evaluation of pt's statu s upon admission and devise an individualized program for Gait Training, and Wheel Chair mobility Inability to transfer - to improve, our physical therapists will perform initial evaluation of pt's status upon admission and devise an individualized program for Bed mobility Need for home safety evaluation - to improve, our physical therapists will perform initial evaluatio n of pt's status upon admission and devise an individualized program for Home Evaluation Need in caregiver upon discharge - to improve, our physical therapists will perform initial evaluati on of pt's status upon admission and devise an individualized program for Caregiver Training New precaution - to improve, our physical therapists will perform initial evaluation of pt's status upon admission and devise an individualized program for Patient precaution education Edema - to improve, our physical therapists will perform initial evaluation of pt's status upon admi ssion and devise an individualized program for Elevation Training, and Lymphedema Therapy Poor balance - to improve, our physical therapists will perform initial evaluation of pt's status up on admission and devise an individualized program for Balance Training Poor endurance - to improve, our physical therapists will perform initial evaluation of pt's status upon admission and devise an individualized program for Endurance Training Weakness - to improve, our physical therapists will perform initial evaluation of pt's status upon a dmission and devise an individualized program for Aquatic Therapy, Neuromuscular Reeducation, and Str engthening Achieving independence - to improve, our physical therapists will perform initial evaluation of pt's status upon admission and devise an individualized program for Community Reintegration Activities - Occupational Therapy Need for neonatal critical care nurse - to improve, our occupation therapists will perform initial evaluation of pt's status upon admission and devise an individualized program for Caregiver Training Weakness - to improve, our occupation therapists will perform initial evaluation of pt's status upon admission and devise an individualized program for Aquatic Therapy, Balance, Endurance, UE ROM, and UE strengthening - Other See attached MAR (Medication Administration Record) - Diet Type Continue Regular - Diet - Liquid Texture Continue Regular - Tube Feed Continue N/A - Lab Results blood Sugar Check ACHS - Bladder care per protocol - Weight Bearing Precaution WBAT both LE - Skin care per protocol - Diet - Solid Texture Continue Regular - Shower allowing shower FUNCTIONAL STATUS: UPDATED AT WEEKLY TEAM CONFERENCE - Bladder Same accident frequency: 7-Ind - No accidents in the past 7 days - Bowel Same accident frequency: 7-Ind - No accidents in the past 7 days - Walking Same score based on distance walked: 0(N/A) - Wheelchair Same score based on distance traveled: 0(N/A) FUNCTIONAL STATUS: - Self-Care A. Eating Ind B. Grooming Santiago C. Bathing Bernabe D. Dressing - Upper Bernabe E. Dressing - Lower modA F. Toileting Bernabe - Sphincter Control G. Bladder control Santiago H. Bowel control Santiago - Transfers Control I. Bed/Chair/Wheelchair Bernabe J. Toilet Bernabe K. Tub/Shower modA - Locomotion L. Walk/Wheelchair (B) Bernabe M. Stairs ADNO - Communication N. Comprehension (B) Santiago O. Expression (B) Santiago - Social Cognition P. Social Interaction Ind Q. Problem Solving Ind R. Memory Ind - Endurance Good - Balance Fair - Safety Awareness Good QI SCORES: - Self-Care A. Eating 03-Partial/moderate assistance B. Oral hygiene 03-Partial/moderate assistance C. Toileting hygiene 03-Partial/moderate assistance E. Shower/bathe self 03-Partial/moderate assistance F. Upper body dressing 03-Partial/moderate assistance G. Lower body dressing 03-Partial/moderate assistance H. Putting on/taking off footwear 88-Not attempted due to medical condition or safety concerns - Mobility A. Roll left and right 03-Partial/moderate assistance B. Sit to lying 03-Partial/moderate assistance C. Lying to sitting on side of bed 03-Partial/moderate assistance D. Sit to stand 03-Partial/moderate assistance E. Chair/[id number]-[id number] transfer 03-Partial/moderate assistance F. Toilet transfer 03-Partial/moderate assistance G. Car transfer 88-Not attempted due to medical condition or safety concerns I. Walk 10 feet 88-Not attempted due to medical condition or safety concerns J. Walk 50 feet with two turns 88-Not attempted due to medical condition or safety concerns K. Walk 150 feet 88-Not attempted due to medical condition or safety concerns L. Walking 10 feet on uneven surfaces 88-Not attempted due to medical condition or safety concerns M. 1 step (curb) 88-Not attempted due to medical condition or safety concerns N. 4 steps 88-Not attempted due to medical condition or safety concerns O. 12 steps 88-Not attempted due to medical condition or safety concerns P. Picking up object 88-Not attempted due to medical condition or safety concerns R. Wheel 50 feet with two turns 88-Not attempted due to medical condition or safety concerns S. Wheel 150 feet 88-Not attempted due to medical condition or safety concerns - Bladder and Bowel Bladder continence Bowel continence - Endurance Fair - Balance Fair - Safety Awareness Fair [facility] DEFICITS: Self-Care, Mobility, Endurance, Balance, and Safety Awareness SIGNATURE PANEL: (DONATIONS ATTENDANT)
[2020-04-07] MEDS: FLUOXETINE 10 MG CAP PO SCH (20:15)
[2020-04-07] MEDS: terbinafine HCL 250 MG TAB PO SCH (20:15)
[2020-04-07] MEDS: ATORVASTATIN 20 MG TAB PO SCH (20:15)
[2020-04-08] MEDS: INSULIN -REGULAR HUMAN 50 UNIT/0.5 ML ML SQ SCH ×4 (07:30→21:00)
[2020-04-08] MEDS: CRANBERRY FRUIT EXTRACT 200 MG CAP PO SCH ×2 (08:13→20:30)
[2020-04-08] MEDS: HYDROCODONE/APAP 5/325 MG TAB PO PRN ×2 (08:14→20:33)
[2020-04-08] MEDS: METFORMIN HCL 500 MG TAB PO SCH ×2 (08:15→17:36)
[2020-04-08] MEDS: GABAPENTIN 100 MG CAP PO SCH ×2 (08:15→20:31)
[2020-04-08] MEDS: FENOFIBRATE 160 MG TAB PO SCH (08:15)
[2020-04-08] MEDS: VITAMIN D 5,000 UNIT CAP PO SCH (08:15)
[2020-04-08] MEDS: APIXABAN 2.5 MG TABLET PO SCH ×2 (08:15→20:31)
[2020-04-08] MEDS: NICOTINE 21 MG/PAT TD SCH (11:53)
--- NOTE | 2020-04-08 18:46 | R.PN ---
PROGRESS NOTES ENCOUNTER DATE AND TIME: 04/08/2020 18:43 (FOOD RUNNER) NAME NICOLAS LAGUNA DATE OF : 1970 DATE OF ADMISSION: 03/24/2020 17:23 (CDT) BEGNIGN NEOPLASM OF THE SPINAL MENINGESCHIEF COMPLAINT: Spinal cord compression, status post decompression. SUBJECTIVE: Pt denied any depression. Pt denied any Shortness of Breath. She has improved lower extremity sensory deficits and weakness following thoracic cord decompression. WBC 11.3, neutrophils 56.8%, prealbumin 31.3, Na is 135, Manager Loss Prevention is 0.67, UA negative for UTI, COVID-19 n egative. Ambulated throughout the hospital with independence using a rolling walker. Self-propelled wheelchair 250' with independence. Up and down 20 steps with independence. Eliquis 2.5 mg twice daily. VITAL SIGNS Temperature: 97.5 F SBP/DBP: 111/61 Pulse: 91 Resp: 16 MEDICATION ALLERGIES: INDOCIN TETRACYCLINES ENVIRONMENTAL ALLERGIES: - Substance Allergies None Known - Other Allergies None Known NURSING: - Shower allowing shower - Lab Results blood Sugar Check ACHS - Bladder care per protocol - Skin care per protocol PRECAUTIONS: - Weight Bearing Precaution WBAT both LE ACTIVITIES OOB only with supervision THERAPIES: - Orthotics/Prosthetics Orthotic Evaluation. Splinting/Casting. - Dietary and Nutrition Adequate Nutrition. Nutritional Education. Nutritional Supplements. PHYSICAL EXAM - Gen Alert and awake Lying in bed No apparent distress Oriented to: person, time, and place - Skin Thoracic spinal incision is healing well. No abnormalities - Eyes No abnormalities - ENMT No abnormalities - Neck No abnormalities - CVS RRR - Chest No abnormalities - Resp Clear to auscultation - Abd + bowel sounds - GI nondistended Deferred - No abnormalities - Ext Mild bilateral lower extremity edema. - MSK 4+/5 weakness in both lower extremities. - Neuro 4/5 strength bilaterally lower extremities. - Psych No abnormalities ASSESSMENT: Pt. is a 50 yo Right-handed female of unknown race.On 03/17/2020 she was admitted to [facility] with diagnosis BEGNIGN NEOPLASM OF THE SPINAL MENINGES.Her impairment category is Spinal Cord Dysfun ction 04 - Paraplegia, Unspecified (04.110).Pre-morbidly, Pt. was independent/mod-I in Locomotion, B alance, Safety Awareness, Transfers Control, Self-Care, and Communication; and she had good Endurance and Social Cognition.Currently, she has deficits of Locomotion, Balance, Transfers Control, Sphincte r Control, and Endurance.Pt. is now referred to [facility] for acute in-patien t rehabilitation in order to maximize patient's functional independence in activities of daily living , strength, ROM, and mobility.- Rehab Goal Patient has realistic goal of being discharged at assistance level 7-Ind to reside at Home with Pt s elf. MDM/PLAN: - Physical Therapy Gait dysfunction - to improve, our physical therapists will perform initial evaluation of pt's statu s upon admission and devise an individualized program for Gait Training, and Wheel Chair mobility Inability to transfer - to improve, our physical therapists will perform initial evaluation of pt's status upon admission and devise an individualized program for Bed mobility Need for home safety evaluation - to improve, our physical therapists will perform initial evaluatio n of pt's status upon admission and devise an individualized program for Home Evaluation Need in caregiver upon discharge - to improve, our physical therapists will perform initial evaluati on of pt's status upon admission and devise an individualized program for Caregiver Training New precaution - to improve, our physical therapists will perform initial evaluation of pt's status upon admission and devise an individualized program for Patient precaution education Edema - to improve, our physical therapists will perform initial evaluation of pt's status upon admi ssion and devise an individualized program for Elevation Training, and Lymphedema Therapy Poor balance - to improve, our physical therapists will perform initial evaluation of pt's status up on admission and devise an individualized program for Balance Training Poor endurance - to improve, our physical therapists will perform initial evaluation of pt's status upon admission and devise an individualized program for Endurance Training Weakness - to improve, our physical therapists will perform initial evaluation of pt's status upon a dmission and devise an individualized program for Aquatic Therapy, Neuromuscular Reeducation, and Str engthening Achieving independence - to improve, our physical therapists will perform initial evaluation of pt's status upon admission and devise an individualized program for Community Reintegration Activities - Occupational Therapy Need for memory care program resident - to improve, our occupation therapists will perform initial evaluation of pt's status upon admission and devise an individualized program for Caregiver Training Weakness - to improve, our occupation therapists will perform initial evaluation of pt's status upon admission and devise an individualized program for Aquatic Therapy, Balance, Endurance, UE ROM, and UE strengthening - Other See attached MAR (Medication Administration Record) - Diet Type Continue Regular - Diet - Liquid Texture Continue Regular - Tube Feed Continue N/A - Lab Results blood Sugar Check ACHS - Bladder care per protocol - Weight Bearing Precaution WBAT both LE - Skin care per protocol - Diet - Solid Texture Continue Regular - Shower allowing shower FUNCTIONAL STATUS: UPDATED AT WEEKLY TEAM CONFERENCE - Bladder Same accident frequency: 7-Ind - No accidents in the past 7 days - Bowel Same accident frequency: 7-Ind - No accidents in the past 7 days - Walking Same score based on distance walked: 0(N/A) - Wheelchair Same score based on distance traveled: 0(N/A) FUNCTIONAL STATUS: - Self-Care A. Eating Ind B. Grooming Santiago C. Bathing Bernabe D. Dressing - Upper Bernabe E. Dressing - Lower modA F. Toileting Bernabe - Sphincter Control G. Bladder control Santiago H. Bowel control Santiago - Transfers Control I. Bed/Chair/Wheelchair Bernabe J. Toilet Bernabe K. Tub/Shower modA - Locomotion L. Walk/Wheelchair (B) Bernabe M. Stairs ADNO - Communication N. Comprehension (B) Santiago O. Expression (B) Santiago - Social Cognition P. Social Interaction Ind Q. Problem Solving Ind R. Memory Ind - Endurance Good - Balance Fair - Safety Awareness Good QI SCORES: - Self-Care A. Eating 03-Partial/moderate assistance B. Oral hygiene 03-Partial/moderate assistance C. Toileting hygiene 03-Partial/moderate assistance E. Shower/bathe self 03-Partial/moderate assistance F. Upper body dressing 03-Partial/moderate assistance G. Lower body dressing 03-Partial/moderate assistance H. Putting on/taking off footwear 88-Not attempted due to medical condition or safety concerns - Mobility A. Roll left and right 03-Partial/moderate assistance B. Sit to lying 03-Partial/moderate assistance C. Lying to sitting on side of bed 03-Partial/moderate assistance D. Sit to stand 03-Partial/moderate assistance E. Chair/ajc-po-lfgif transfer 03-Partial/moderate assistance F. Toilet transfer 03-Partial/moderate assistance G. Car transfer 88-Not attempted due to medical condition or safety concerns I. Walk 10 feet 88-Not attempted due to medical condition or safety concerns J. Walk 50 feet with two turns 88-Not attempted due to medical condition or safety concerns K. Walk 150 feet 88-Not attempted due to medical condition or safety concerns L. Walking 10 feet on uneven surfaces 88-Not attempted due to medical condition or safety concerns M. 1 step (curb) 88-Not attempted due to medical condition or safety concerns N. 4 steps 88-Not attempted due to medical condition or safety concerns O. 12 steps 88-Not attempted due to medical condition or safety concerns P. Picking up object 88-Not attempted due to medical condition or safety concerns R. Wheel 50 feet with two turns 88-Not attempted due to medical condition or safety concerns S. Wheel 150 feet 88-Not attempted due to medical condition or safety concerns - Bladder and Bowel Bladder continence Bowel continence - Endurance Fair - Balance Fair - Safety Awareness Fair [facility]RENT [facility]. DEFICITS: Self-Care, Mobility, Endurance, Balance, and Safety Awareness SIGNATURE PANEL: (FOOD RUNNER)
[2020-04-08] MEDS: ATORVASTATIN 20 MG TAB PO SCH (20:30)
[2020-04-08] MEDS: FLUOXETINE 10 MG CAP PO SCH (20:30)
[2020-04-08] MEDS: terbinafine HCL 250 MG TAB PO SCH (20:31)
[2020-04-09] MEDS: INSULIN -REGULAR HUMAN 50 UNIT/0.5 ML ML SQ SCH ×2 (07:30→11:30)
[2020-04-09 07:37] VITALS: BP 121/68; TEMP 97.8
[2020-04-09] MEDS: CRANBERRY FRUIT EXTRACT 200 MG CAP PO SCH (08:13)
[2020-04-09] MEDS: VITAMIN D 5,000 UNIT CAP PO SCH (08:13)
[2020-04-09] MEDS: FENOFIBRATE 160 MG TAB PO SCH (08:13)
[2020-04-09] MEDS: APIXABAN 2.5 MG TABLET PO SCH (08:13)
[2020-04-09] MEDS: GABAPENTIN 100 MG CAP PO SCH (08:13)
[2020-04-09] MEDS: METFORMIN HCL 500 MG TAB PO SCH (08:13)
[2020-04-09] MEDS: NICOTINE 21 MG/PAT TD SCH (08:14)
[2020-04-09] MEDS: HYDROCODONE/APAP 5/325 MG TAB PO PRN (08:28)
--- NOTE | 2020-04-09 18:08 | R.PN ---
PROGRESS NOTES ENCOUNTER DATE AND TIME: 04/09/2020 18:05 (COMPUTER GAME TESTER) NAME NICOLAS LAGUNA DATE OF : 1970 DATE OF ADMISSION: 03/24/2020 17:23 (CDT) BEGNIGN NEOPLASM OF THE SPINAL MENINGESCHIEF COMPLAINT: Spinal cord compression, status post decompression. SUBJECTIVE: Pt denied any depression. Pt denied any Shortness of Breath. She has improved lower extremity sensory deficits and weakness following thoracic cord decompression. WBC 11.3, neutrophils 56.8%, prealbumin 31.3, Na is 135, Paper Cutter is 0.67, UA negative for UTI, COVID-19 n egative. Ambulated throughout the hospital 750' with independence using a rolling walker. Self-propelled wheel chair 250' with independence. Up and down 15 steps with independence. Eliquis 2.5 mg twice daily. VITAL SIGNS Temperature: 97.8 F SBP/DBP: 121/68 Pulse: 88 Resp: 16 MEDICATION ALLERGIES: INDOCIN TETRACYCLINES ENVIRONMENTAL ALLERGIES: - Substance Allergies None Known - Other Allergies None Known NURSING: - Shower allowing shower - Lab Results blood Sugar Check ACHS - Bladder care per protocol - Skin care per protocol PRECAUTIONS: - Weight Bearing Precaution WBAT both LE ACTIVITIES OOB only with supervision THERAPIES: - Orthotics/Prosthetics Orthotic Evaluation. Splinting/Casting. - Dietary and Nutrition Adequate Nutrition. Nutritional Education. Nutritional Supplements. PHYSICAL EXAM - Gen Alert and awake Lying in bed No apparent distress Oriented to: person, time, and place - Skin Thoracic spinal incision is healing well. No abnormalities - Eyes No abnormalities - ENMT No abnormalities - Neck No abnormalities - CVS RRR - Chest No abnormalities - Resp Clear to auscultation - Abd + bowel sounds - GI nondistended Deferred - No abnormalities - Ext Mild bilateral lower extremity edema. - MSK 4+/5 weakness in both lower extremities. - Neuro 4/5 strength bilaterally lower extremities. - Psych No abnormalities ASSESSMENT: Pt. is a 50 yo Right-handed female of unknown race.On 03/17/2020 she was admitted to [facility] with diagnosis BEGNIGN NEOPLASM OF THE SPINAL MENINGES.Her impairment category is Spinal Cord Dysfun ction 04 - Paraplegia, Unspecified (04.110).Pre-morbidly, Pt. was independent/mod-I in Locomotion, B alance, Safety Awareness, Transfers Control, Self-Care, and Communication; and she had good Endurance and Social Cognition.Currently, she has deficits of Locomotion, Balance, Transfers Control, Sphincte r Control, and Endurance.Pt. is now referred to [facility] for acute in-patien t rehabilitation in order to maximize patient's functional independence in activities of daily living , strength, ROM, and mobility.- Rehab Goal Patient has realistic goal of being discharged at assistance level 7-Ind to reside at Home with Pt s elf. MDM/PLAN: - Physical Therapy Gait dysfunction - to improve, our physical therapists will perform initial evaluation of pt's statu s upon admission and devise an individualized program for Gait Training, and Wheel Chair mobility Inability to transfer - to improve, our physical therapists will perform initial evaluation of pt's status upon admission and devise an individualized program for Bed mobility Need for home safety evaluation - to improve, our physical therapists will perform initial evaluatio n of pt's status upon admission and devise an individualized program for Home Evaluation Need in caregiver upon discharge - to improve, our physical therapists will perform initial evaluati on of pt's status upon admission and devise an individualized program for Caregiver Training New precaution - to improve, our physical therapists will perform initial evaluation of pt's status upon admission and devise an individualized program for Patient precaution education Edema - to improve, our physical therapists will perform initial evaluation of pt's status upon admi ssion and devise an individualized program for Elevation Training, and Lymphedema Therapy Poor balance - to improve, our physical therapists will perform initial evaluation of pt's status up on admission and devise an individualized program for Balance Training Poor endurance - to improve, our physical therapists will perform initial evaluation of pt's status upon admission and devise an individualized program for Endurance Training Weakness - to improve, our physical therapists will perform initial evaluation of pt's status upon a dmission and devise an individualized program for Aquatic Therapy, Neuromuscular Reeducation, and Str engthening Achieving independence - to improve, our physical therapists will perform initial evaluation of pt's status upon admission and devise an individualized program for Community Reintegration Activities - Occupational Therapy Need for managed care specialist - to improve, our occupation therapists will perform initial evaluation of pt's status upon admission and devise an individualized program for Caregiver Training Weakness - to improve, our occupation therapists will perform initial evaluation of pt's status upon admission and devise an individualized program for Aquatic Therapy, Balance, Endurance, UE ROM, and UE strengthening - Other See attached MAR (Medication Administration Record) - Diet Type Continue Regular - Diet - Liquid Texture Continue Regular - Tube Feed Continue N/A - Lab Results blood Sugar Check ACHS - Bladder care per protocol - Weight Bearing Precaution WBAT both LE - Skin care per protocol - Diet - Solid Texture Continue Regular - Shower allowing shower FUNCTIONAL STATUS: UPDATED AT WEEKLY TEAM CONFERENCE - Bladder Same accident frequency: 7-Ind - No accidents in the past 7 days - Bowel Same accident frequency: 7-Ind - No accidents in the past 7 days - Walking Same score based on distance walked: 0(N/A) - Wheelchair Same score based on distance traveled: 0(N/A) FUNCTIONAL STATUS: - Self-Care A. Eating Ind B. Grooming Santiago C. Bathing Bernabe D. Dressing - Upper Bernabe E. Dressing - Lower modA F. Toileting Bernabe - Sphincter Control G. Bladder control Santiago H. Bowel control Santiago - Transfers Control I. Bed/Chair/Wheelchair Bernabe J. Toilet Bernabe K. Tub/Shower modA - Locomotion L. Walk/Wheelchair (B) Bernabe M. Stairs ADNO - Communication N. Comprehension (B) Santiago O. Expression (B) Santiago - Social Cognition P. Social Interaction Ind Q. Problem Solving Ind R. Memory Ind - Endurance Good - Balance Fair - Safety Awareness Good QI SCORES: - Self-Care A. Eating 03-Partial/moderate assistance B. Oral hygiene 03-Partial/moderate assistance C. Toileting hygiene 03-Partial/moderate assistance E. Shower/bathe self 03-Partial/moderate assistance F. Upper body dressing 03-Partial/moderate assistance G. Lower body dressing 03-Partial/moderate assistance H. Putting on/taking off footwear 88-Not attempted due to medical condition or safety concerns - Mobility A. Roll left and right 03-Partial/moderate assistance B. Sit to lying 03-Partial/moderate assistance C. Lying to sitting on side of bed 03-Partial/moderate assistance D. Sit to stand 03-Partial/moderate assistance E. Chair/zll-lh-gcleg transfer 03-Partial/moderate assistance F. Toilet transfer 03-Partial/moderate assistance G. Car transfer 88-Not attempted due to medical condition or safety concerns I. Walk 10 feet 88-Not attempted due to medical condition or safety concerns J. Walk 50 feet with two turns 88-Not attempted due to medical condition or safety concerns K. Walk 150 feet 88-Not attempted due to medical condition or safety concerns L. Walking 10 feet on uneven surfaces 88-Not attempted due to medical condition or safety concerns M. 1 step (curb) 88-Not attempted due to medical condition or safety concerns N. 4 steps 88-Not attempted due to medical condition or safety concerns O. 12 steps 88-Not attempted due to medical condition or safety concerns P. Picking up object 88-Not attempted due to medical condition or safety concerns R. Wheel 50 feet with two turns 88-Not attempted due to medical condition or safety concerns S. Wheel 150 feet 88-Not attempted due to medical condition or safety concerns - Bladder and Bowel Bladder continence Bowel continence - Endurance Fair - Balance Fair - Safety Awareness Fair [facility] DEFICITS: Self-Care, Mobility, Endurance, Balance, and Safety Awareness SIGNATURE PANEL: (COMPUTER GAME TESTER)
== END 2020-04-09 16:15 | disposition home or self-care (01) | DRG 93 ==
LOC: 5TH 19:23
PROVIDERS: ADMIT Psychiatry & Neurology Neurology with Special Qualifications in Child Neurology; ATTEND Psychiatry & Neurology Neurology with Special Qualifications in Child Neurology
DX: G95.20 Unspecified cord compression (principal); E11.42 Type 2 diabetes mellitus with diabetic polyneuropathy; Z88.1 Allergy status to other antibiotic agents; Z90.49 Acquired absence of other specified parts of digestive tract; Z88.8 Allergy status to other drugs, medicaments and biological substances; Z20.828 Contact with and (suspected) exposure to other viral communicable diseases
CPT/HCPCS: 36415; 80048; 81001; 82040; 83735; 84134; 85025; 87077; 87086; 87088; 87186; 97110; 97112; 97116; 97161; 97530; 97542; U0002; U0003